=== PATIENT | female | born 1995 | race Caucasian/White ===

== ENCOUNTER 2018-05-05 08:29 | Emergency (ER) | payer OTHER ==
[2018-05-05] MEDS: GI COCKTAIL 50ML BTL(HYOSCYAMINE/MAALOX/LIDOCAINE VISCOUS)(1:3:1) PO (09:15)
[2018-05-05] MEDS: ONDANSETRON 4MG/2ML VIAL (J2405) IV (09:34)
[2018-05-05] MEDS: NS 1,000 ML IV (09:34)
[2018-05-05 09:45] LABS: BASO # 0.1 10^3/uL (0.0-0.2); BASO % 0.4 % (0.0-1.0); EOS # 0.1 10^3/uL (0.0-0.50); EOS % 0.5 % (0.0-3.0); HEMOGLOBIN 16.5 g/dl (12.0-15.5); IMMATURE GRANULOCYTE % 0.4 % (0-3.0); LYMPH # 2.4 10^3/uL (1.5-6.5); LYMPH % 17.5 % (24.0-44.0); MEAN CORPUSCULAR HEMOGLOBIN 31.7 pg (27.0-33.0); MEAN CORPUSCULAR HGB CONC 34.4 g/dl (32.0-36.5); MEAN CORPUSCULAR VOLUME 92.1 fl (80.0-96.0); NEUTROPHILS # 10.2 10^3/uL (1.8-7.7); NEUTROPHILS % 74.2 % (36.0-66.0); PLATELET COUNT, AUTOMATED 262 10^3/uL (150-450); RED BLOOD COUNT 5.21 10^6/uL (4.00-5.40); RED CELL DISTRIBUTION WIDTH 13.7 % (11.5-14.5); WHITE BLOOD COUNT 13.8 10^3/uL (4.0-10.0)
[2018-05-05 09:53] LABS: INR 0.97
[2018-05-05 09:54] LABS: PARTIAL THROMBOPLASTIN TIME 31.1 SECONDS (25.4-37.6)
[2018-05-05 10:36] LABS: ALBUMIN 3.9 GM/DL (3.2-5.2); ALBUMIN/GLOBULIN RATIO 1.18 (1.00-1.93); ALKALINE PHOSPHATASE 56 U/L (45-117); ALT/SGPT 17 U/L (12-78); ANION GAP 10 MEQ/L (8-16); AST/SGOT 10 U/L (7-37); BILIRUBIN,DIRECT 0.1 MG/DL (0.0-0.2); BILIRUBIN,TOTAL 0.4 MG/DL (0.2-1.0); BLOOD UREA NITROGEN 11 MG/DL (7-18); CALCIUM LEVEL 9.4 MG/DL (8.5-10.1); CARBON DIOXIDE LEVEL 21 MEQ/L (21-32); CHLORIDE LEVEL 109 MEQ/L (98-107); CPK CREATINE PHOSPHOKINASE 43 U/L (26-192); CREATININE FOR GFR 0.72 MG/DL (0.55-1.30); FREE T4 1.22 NG/DL (0.76-1.46); GLOMERULAR FILTRATION RATE > 60.0 (>60); GLUCOSE, FASTING 99 MG/DL (70-100); LIPASE 80 U/L (73-393); MB/CK RELATIVE INDEX 2.33 (< OR =4); POTASSIUM SERUM 3.7 MEQ/L (3.5-5.1); SODIUM LEVEL 140 MEQ/L (136-145); TOTAL PROTEIN 7.2 GM/DL (6.4-8.2); TROPONIN I < 0.02 NG/ML (< 0.10)
== END 2018-05-05 10:48 | disposition home or self-care (01) ==
LOC: M ED 08:29
DX: K21.0 Gastro-esophageal reflux disease with esophagitis (principal); J45.909 Unspecified asthma, uncomplicated; G43.909 Migraine, unspecified, not intractable, without status migrainosus; Z79.899 Other long term (current) drug therapy; F17.210 Nicotine dependence, cigarettes, uncomplicated
CPT/HCPCS: J2405

== ENCOUNTER → 2019-10-23 | Outpatient (REF) | payer OTHER ==
[~2019-10-23] MED LIST: AMIT10TA PO; PROT1TAB2 PO; VENTAER INH; ZOFR4TAB14 PO
[2019-10-23 21:08] LABS: INFLUENZA A AMPLIFICATION NEGATIVE (NEGATIVE); INFLUENZA B AMPLIFICATION NEGATIVE (NEGATIVE)
== END ==
LOC: M LAB REF 20:15
PROVIDERS: ATTEND Physician Assistant Medical
DX: J11.1 Influenza due to unidentified influenza virus with other respiratory manifestations (principal)

== ENCOUNTER 2019-11-03 11:14 | Emergency (ER) | payer OTHER ==
[~2019-11-03] VITALS: Ht 167.6 cm; Wt 79.3 kg
[2019-11-03] MEDS ORDERED: IBUP80TA PO (11:24)
[2019-11-03] MEDS ORDERED: ALBUTEROL SULFATE 2.5 MG/0.5 ML INH NEB SOLN NEB ONE (11:45)
--- NOTE | 2019-11-03 12:11 | REP ---
Chest x-ray: Two views. History: Productive cough, shortness of breath, wheezing. Rule out pneumonia. No comparison studies. Findings: There is an infiltrate in the right middle lobe overlying the heart on the lateral film and at the right base on the frontal view consistent with pneumonia. Remaining lung petty are clear. Pleural angles are sharp. Heart size is normal. Pulmonary vasculature is not increased. No significant bony abnormality is seen. Impression: Right middle lobe infiltrate consistent with pneumonia. Electronically Signed by Daniel Singh MD 11/03/2019 12:02 P
[2019-11-03] MEDS ORDERED: ALBUTEROL 90 MCG/ACT 8GM HFA INHALER INH ONE (12:15)
[2019-11-03] MEDS ORDERED: MEDR4PAK PO (12:30)
[2019-11-03] MEDS ORDERED: VENTAER INH (12:30)
[2019-11-03] MEDS ORDERED: AMOX500C PO (12:30)
[2019-11-03 12:35] LABS: INFLUENZA A AMPLIFICATION NEGATIVE (NEGATIVE); INFLUENZA B AMPLIFICATION POSITIVE (NEGATIVE)
[2019-11-03 12:37] VITALS: BP 132/83
== END 2019-11-03 12:51 | disposition home or self-care (01) ==
LOC: M ED 11:14
DX: J10.1 Influenza due to other identified influenza virus with other respiratory manifestations (principal); J18.9 Pneumonia, unspecified organism; Z20.89 Contact with and (suspected) exposure to other communicable diseases; J45.909 Unspecified asthma, uncomplicated; F17.200 Nicotine dependence, unspecified, uncomplicated

== ENCOUNTER 2020-11-13 15:26 | Emergency (ER) | payer OTHER ==
[~2020-11-13] VITALS: Ht 170.2 cm; Wt 74.1 kg
[~2020-11-13 15:26] MED LIST changes: -AMIT10TA PO; +AMIT10TA7 PO; +AMOX500C PO; +IBUP80TA PO; +MEDR4PAK PO
[2020-11-13] MEDS ORDERED: CITA20TA6 PO (15:47)
[2020-11-13] MEDS ORDERED: ACETAMINOPHEN 325 MG TAB PO ONE (16:15)
[2020-11-13] MEDS ORDERED: LIDOCAINE 2% MDV 20ML VIAL SC ONE (17:10)
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
[2020-11-13] MEDS ORDERED: PERI0.126 PO (18:51)
[2020-11-13] MEDS ORDERED: AUGM875T28 PO (18:51)
[2020-11-13 19:14] VITALS: BP 122/91
== END 2020-11-13 19:17 | disposition home or self-care (01) ==
LOC: M ED 15:26
DX: S01.511A Laceration without foreign body of lip, initial encounter (principal); S03.2XXA Dislocation of tooth, initial encounter; R22.31 Localized swelling, mass and lump, right upper limb; K01.1 Impacted teeth; V43.52XA Car driver injured in collision with other type car in traffic accident, initial encounter; Y92.9 Unspecified place or not applicable; Y93.9 Activity, unspecified; Y99.9 Unspecified external cause status; G43.909 Migraine, unspecified, not intractable, without status migrainosus; J45.909 Unspecified asthma, uncomplicated; F17.200 Nicotine dependence, unspecified, uncomplicated

== ENCOUNTER 2020-11-21 14:29 | Emergency (ER) | payer OTHER ==
[~2020-11-21] VITALS: Ht 167.6 cm; Wt 75.8 kg
[~2020-11-21 14:29] MED LIST changes: +AUGM875T28 PO; +CITA20TA6 PO; +PERI0.126 PO
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
[2020-11-21 17:10] VITALS: BP 122/76
== END 2020-11-21 17:13 | disposition home or self-care (01) ==
LOC: M ED 14:29
DX: F07.81 Postconcussional syndrome (principal); G43.909 Migraine, unspecified, not intractable, without status migrainosus; J45.909 Unspecified asthma, uncomplicated; Z79.899 Other long term (current) drug therapy

== ENCOUNTER 2021-01-05 10:27 | Emergency (ER) | payer OTHER ==
[~2021-01-05] VITALS: Ht 167.6 cm; Wt 72.7 kg
[2021-01-05] MEDS ORDERED: NS 1,000 ML IV ONE (11:05)
[2021-01-05 11:28] LABS: HEMATOCRIT 46.8 % (36.0-47.0); HEMOGLOBIN 15.7 g/dl (12.0-15.5); MEAN CORPUSCULAR HEMOGLOBIN 31.8 pg (27.0-33.0); MEAN CORPUSCULAR HGB CONC 33.5 g/dl (32.0-36.5); MEAN CORPUSCULAR VOLUME 94.7 fl (80.0-96.0); PLATELET COUNT, AUTOMATED 322 10^3/uL (150-450); RED BLOOD COUNT 4.94 10^6/uL (4.00-5.40); WHITE BLOOD COUNT 14.4 10^3/uL (4.0-10.0)
[2021-01-05 11:58] LABS: ALBUMIN 3.7 GM/DL (3.2-5.2); ALT/SGPT 19 U/L (12-78); BILIRUBIN,TOTAL 0.6 MG/DL (0.2-1.0); BLOOD UREA NITROGEN 13 MG/DL (7-18); CALCIUM LEVEL 8.3 MG/DL (8.5-10.1); CARBON DIOXIDE LEVEL 27 MEQ/L (21-32); CHLORIDE LEVEL 109 MEQ/L (98-107); CREATININE FOR GFR 0.73 MG/DL (0.55-1.30); GLOMERULAR FILTRATION RATE > 60.0 (>60); GLUCOSE, FASTING 100 MG/DL (70-100); POTASSIUM SERUM 3.8 MEQ/L (3.5-5.1); SODIUM LEVEL 139 MEQ/L (136-145); TOTAL PROTEIN 7.5 GM/DL (6.4-8.2)
[2021-01-05 12:22] LABS: HCG, SERUM QUALITATIVE POSITIVE (NEGATIVE)
[2021-01-05] MEDS ORDERED: EEG (13:00)
[2021-01-05] MEDS ORDERED: ACETAMINOPHEN TAB 650MG DOSE (2X325MG) PO ONE (13:00)
[2021-01-05 13:02] LABS: HCG, SERUM QUANTITATIVE 142 MIU/ML
[2021-01-05 13:44] LABS: AMPHETAMINES LEVEL URINE NEGATIVE (NEGATIVE); BARBITURATES URINE NEGATIVE (NEGATIVE); BENZODIAZEPINES URINE NEGATIVE (NEGATIVE); CANNABINOIDS URINE POSITIVE (NEGATIVE); COCAINE METABOLITE URINE NEGATIVE (NEGATIVE); METHADONE URINE NEGATIVE (NEGATIVE); OPIATES URINE NEGATIVE (NEGATIVE); PHENCYCLIDINE URINE NEGATIVE (NEGATIVE)
[2021-01-05 13:45] VITALS: BP 119/75
[2021-01-05] MEDS ORDERED: ALBU8.5H INH (18:18)
--- NOTE | 2021-01-06 10:14 | IPN ---
PROGRESS NOTE DATE: 01/05/2021 SUBJECTIVE: Patient has recurrent seizure episodes. No shortness of breath or cough, fever, or chills overnight. Tolerating her prednisone well. 98% on room air. PHYSICAL EXAMINATION (OBJECTIVE): Vital Signs: Temperature 98.6, pulse 66, respiratory rate 18, blood pressure 116/60, 98% on room air. General: Awake, alert, oriented to person, place and time. Answers questions appropriately. HEENT: Face is symmetric. Tongue is midline. No jugular venous distension (JVD), thyromegaly or cervical lymphadenopathy. Lungs: Clear to auscultation. No wheezing, rales or rhonchi. Heart: S1, S2; sinus rhythm. Abdomen: Soft, nontender, nondistended. Positive bowel sounds. Gravid uterus. Extremities: No cyanosis, clubbing or pitting edema. LABORATORY DATA: Reviewed. ASSESSMENT AND PLAN: This is a 25-year-old female with tonic-clonic seizure activity at home admitted for seizures and asthma exacerbation on 01/05/2021. IMPRESSION: 1. Seizure. Patient is currently on Keppra 1 gram twice a day. Dr. Lebron, neurologist, has been consulted. CT of the head was negative. Ativan for acute tonic seizure activity as needed. EEG today. May transfer to medical/surgical floor with seizure precautions. No signs of aspiration. 2. Asthma exacerbation. She is status post one dose of Solu-Medrol; currently on prednisone 40 mg to clear lungs and DuoNeb; not requiring any home oxygen. Patient does not have any inhalers at home; would like to have one after hospital discharge. 3. Gravid uterus; positive test, outpatient follow up. DISPOSITION: Medically stable for transfer to medical/surgical floor. Discontinue telemetry. Depending on EEG and further recommendations from neurology, may be discharged home later today or in the morning.
--- NOTE | 2021-01-06 13:19 | ECGEPIP ---
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
[2021-01-06] MEDS ORDERED: PROAAER10 INH (17:28)
[2021-01-06] MEDS ORDERED: PRED10TA2 PO (17:28)
[2021-01-06] MEDS ORDERED: KEPP1TAB PO (17:28)
== END 2021-01-05 14:10 | disposition home or self-care (01) ==
LOC: M ED 10:27
DX: O99.350 Diseases of the nervous system complicating pregnancy, unspecified trimester (principal); O99.519 Diseases of the respiratory system complicating pregnancy, unspecified trimester; O99.330 Smoking (tobacco) complicating pregnancy, unspecified trimester; Z32.01 Encounter for pregnancy test, result positive

== ENCOUNTER 2021-01-05 17:33 | Observation (INO) | payer OTHER ==
[~2021-01-05] VITALS: Ht 167.6 cm; Wt 70.0 kg
[~2021-01-05 17:33] MED LIST changes: +EEG
[2021-01-05] MEDS ORDERED: ALBUTEROL 90 MCG/ACT 8GM HFA INHALER INH ONE (17:45)
[2021-01-05] MEDS ORDERED: ALBU8.5H INH (18:18)
[2021-01-05] MEDS ORDERED: IPRATROPIUM 0.5MG/ALBUTEROL 2.5MG INH SOL UD 3ML (DUONEB) NEB ONE (19:15)
[2021-01-05] MEDS ORDERED: MAALOX 30 ML SUSP *UDC PO PRN (19:45)
[2021-01-05] MEDS ORDERED: ALBUTEROL 90 MCG/ACT 8GM HFA INHALER INH PRN (19:45)
[2021-01-05] MEDS ORDERED: ACETAMINOPHEN TAB 650MG DOSE (2X325MG) PO PRN (19:45)
[2021-01-05] MEDS ORDERED: MOM 30ML SUSPENSION UDC PO PRN (19:45)
[2021-01-05] MEDS ORDERED: LORazepam 2 MG/ML VIAL As Ordered ONE (19:53)
[2021-01-05] MEDS ORDERED: levETIRAcetam INJection 1,000 MG in D5W 100 ML IV ONE (20:00)
[2021-01-05] MEDS ORDERED: LORazepam 2 MG/ML VIAL IM STA (20:04)
[2021-01-05] MEDS ORDERED: LORazepam 2 MG/ML VIAL IV STA (20:09)
[2021-01-05] MEDS ORDERED: methylPREDNISolone 125MG 2ML VIAL IV STA (20:16)
--- NOTE | 2021-01-05 20:16 | IPNPDOC ---
Text Note Date of Service The patient was seen on 01/05/21. 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
[2021-01-05] MEDS ORDERED: ALBUTEROL SULFATE 2.5 MG/0.5 ML INH NEB SOLN NEB PRN (20:20)
[2021-01-05] MEDS ORDERED: MAG SULF 1GM/100ML (MAG RUN) 1 GM in IV 1 EA IV ONE (20:20)
[2021-01-05] MEDS ORDERED: NS 1,000 ML IV ONE (20:40)
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
[2021-01-05] MEDS: DOCUSATE SODIUM 100MG CAPSULE PO SCH (21:00)
[2021-01-05] MEDS ORDERED: levETIRAcetam 250MG TABLET (KEPPRA) PO SCH (21:00)
--- NOTE | 2021-01-05 21:02 | REPVR ---
PROCEDURE INFORMATION: Exam: CT Head Without Contrast Exam date and time: 01/05/2021 8:35 PM Age: 25 years old Clinical indication: Seizure activity TECHNIQUE: Imaging protocol: Computed tomography of the head without contrast. Radiation optimization: All CT scans at this facility use at least one of these dose optimization techniques: automated exposure control; mA and/or kV adjustment per patient size (includes targeted exams where dose is matched to clinical indication); or iterative reconstruction. COMPARISON: CT Head without contrast 11/21/2020 2:53 PM FINDINGS: Brain: No intracranial hemorrhage or extra-axial fluid collection. No evidence of mass effect or midline shift. Griffin-white matter differentiation is intact. Cerebral ventricles: No ventriculomegaly. Bones/joints: No acute osseus lesion or fracture. Paranasal sinuses: Visualized sinuses are unremarkable. No fluid levels. Mastoid air cells: Unremarkable. Soft tissues: Unremarkable. IMPRESSION: No acute intracranial pathology. Electronically signed by: Damian Juárez On 01/05/2021 21:02:33 PM
[2021-01-06 00:30] VITALS: BP 106/58
[2021-01-06] MEDS: IPRATROPIUM 0.5MG/ALBUTEROL 2.5MG INH SOL UD 3ML (DUONEB) NEB SCH ×3 (02:17→14:57)
[2021-01-06 04:00] VITALS: BP 130/61
[2021-01-06 07:54] VITALS: BP 116/60
[2021-01-06] MEDS: DOCUSATE SODIUM 100MG CAPSULE PO SCH (08:46)
[2021-01-06] MEDS ORDERED: predniSONE 20 MG TAB PO SCH (09:00)
[2021-01-06] MEDS ORDERED: levETIRAcetam 250MG TABLET (KEPPRA) PO SCH (09:00)
[2021-01-06 12:00] VITALS: BP 99/56
--- NOTE | 2021-01-06 13:25 | ECGEPIP ---
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
[2021-01-06 16:00] VITALS: BP 107/55
[2021-01-06] MEDS ORDERED: KEPP1TAB PO (17:28)
[2021-01-06] MEDS ORDERED: PROAAER10 INH (17:28)
[2021-01-06] MEDS ORDERED: PRED10TA2 PO (17:28)
--- NOTE | 2021-01-06 19:39 | DSES ---
DISCHARGE SUMMARY DATE OF ADMISSION: 01/05/2021 DATE OF DISCHARGE: 01/06/2021 [place] THIS ADMISSION: Dr. Chaney, neurologist. PRIMARY DISCHARGE DIAGNOSES: 1. Stress-induced convulsive disorder, rule out tonic-clonic seizures. 2. Four week gestation/. 3. Asthma exacerbation. DISCHARGE MEDICATIONS: 1. Albuterol two puffs q. four to six hours as needed for wheezing. 2. Keppra 500 mg b.i.d. 3. Prednisone taper. DISCHARGE INSTRUCTIONS: The patient is to have an outpatient video electroencephalogram to be arranged by her neurologist to confirm seizure activity. HOSPITAL COURSE: This is a 25-year-old female four weeks who presented to the emergency room after having a witnessed tonic-clonic seizure like movement at home witnessed by her boyfriend with prolonged sleepiness, confusion, and grogginess possible postictal brought into the hospital for possible seizure activity. The patient had been having headaches and fell to the floor during tonic-clonic movements and hit her head on the floor with shortness of breath. The patient had been wheezing for the past few days and in the ER was found to also have asthma exacerbation. She was given IV Solu-Medrol, kept on nebulizer treatment with complete resolution of her asthma. She was kept on IV Keppra while she was postictal. EEG was performed, but result is unavailable. Prolactin level was 17.5. Dr. Chaney recommended continued use of Keppra 500 b.i.d. and outpatient video EEG to be arranged. DISCHARGE PHYSICAL EXAMINATION: VITAL SIGNS: Temperature 97.5, pulse 70, respiratory rate 16, blood pressure 107/55, 96% on room air. GENERAL: The patient is awake, alert, and oriented to person, place, and time. Answering questions appropriately. HEENT: Face is symmetric. Tongue is midline. NECK: No JVD, thyromegaly, or cervical lymphadenopathy. LUNGS: Clear to auscultation. Air entry is equal. No wheezing, which has resolved. ABDOMEN: Soft, nontender, and nondistended. Positive bowel sounds. EXTREMITIES: No cyanosis, clubbing, or pitting edema. IMAGING DATA: CT of the head was no acute intracranial pathology. EEG is pending. LABORATORY DATA: Magnesium of 1.8, prolactin of 17.5. Time spent on discharge: 30 minutes.
--- NOTE | 2021-01-07 08:36 | EEG ---
ELECTROENCEPHALOGRAM DATE: 01/06/2021 DIAGNOSIS: Seizures. EEG# [id number]. REFERRING PHYSICIAN: Sumi Bailey MD HISTORY: Patient is a 25-year-old woman who was admitted at [facility] after having passing out and seizure-like spells. This EEG was done to rule out epileptic potential. She is currently taking Keppra, Tylenol, multivitamin, etc. TECHNICAL DESCRIPTION: This digital EEG was recorded by 21-scalp, ear, and two EKG electrodes and was reviewed in bipolar and referential montages following reformatting in 10-20 international electrode placement system. INTERPRETATION: Patient was noted to be in awake and drowsy states during this EEG. Resting and awake background rhythm consisted of 8.5 Hz alpha activity measuring 15-50 microvolts in amplitude, which was symmetric and reactive to eye opening. Attenuation of posterior dominant rhythm was seen during transition into drowsiness. Stage 1 and 2 sleep were reviewed and were symmetric bilaterally. Hyperventilation elicited mild theta slowing of background rhythm. Photic stimulation remained unremarkable. No focal, lateralizing, or epileptiform abnormalities were seen. No relevant clinical activity was noted. CONCLUSION: This EEG in awake, drowsy states, stage 1 and 2 sleep is within normal limits.
--- NOTE | 2021-01-07 18:24 | CR ---
NEUROLOGY CONSULTATION/NEUROLOGY FOLLOW UP NOTE DATE: 01/06/2021 REASON FOR CONSULTATION: Suspect seizure-like activity. HISTORY OF PRESENTING ILLNESS: Milagros Coffman is a 25-year-old right handed female with a past medical history significant for asthma who was recently diagnosed to be 4-6 weeks in the Emergency Department. The patient was brought to the E.R. by her mother and boyfriend with seizure-like spells. Over the last few months the patient started having seizure-like spells multiple times a week, approximately 2-3 events per week, lasting approximately 2-3 minutes with convulsive shaking and stiffening. The patient states that the events are usually preceded by stress. She is under a lot of social stress. She denies any history of physical or sexual abuse through her life. She states that she has had some traumatic experience in her life that she does think about. She does suffer from depression and anxiety. Finding out in the Emergency Department that she was was quite overwhelming as she had not planned on becoming so young. The patient was then discharged home after the first seizure-like spell which occurred at home with stiffening of the arms and legs followed by some confusion. The patient was brought to the hospital, head CT was completed and was negative for any acute intracranial process. She was sent home. She had another event while at home. She had a third event while here in the hospital E.R. again. She was given Ativan and loaded with Keppra given that she was reportedly and having continued seizure-like activity. Her mother did report that the patient would have odd behavior and space out randomly. The patient had an EEG while at [facility] and this EEG was found to be within normal limits. The patient reports that she is able to hear her boyfriend around her when she is going through this episode. Usually these episodes occur when she is alone. She was able to hear her boyfriend, and in quite detail she can describe that he was contacting the ambulance and also checking on her to see if she was okay. 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 Given that we have multiple seizure-like events and the patient being , it would be buckner to have her stay on at least one anti-epileptic drug at this time. The patient would benefit from video EEG monitoring in an outpatient setting, and she is agreeable to consider this moving forward. She herself has never had seizures prior to the last few months. She had normal child development and reached all her milestones appropriately. The patient has smoked since the very young of 16. She also has used alcohol socially. She has been advised to quit alcohol and to quit smoking. She denies any recreational drug use other than marijuana. The patient is fully aware that she is not allowed to drive, operate heavy machinery, climbing ladders, working from heights, etc. for the next 6 months. PAST MEDICAL HISTORY: The patient's past medical history is significant for: 1. Asthma. 2. Current diagnosis of between 4 to 6 weeks. 3. Seizure-like spells. PAST SURGICAL HISTORY: None. FAMILY HISTORY: Noncontributory. SOCIAL HISTORY: The patient currently smokes. She drinks alcohol occasionally. She denies any recreational drug use. REVIEW OF SYSTEMS: A 14-point review of systems was obtained and is negative except as per HPI. PHYSICAL EXAMINATION: VITAL SIGNS: Pain is 0/10. Current height is 5 feet, 6 inches, current weight is 70 kg. Blood pressure 99/56, pulse rate 74, respiratory rate 18, temperature 97.5 degrees Fahrenheit, oxygenation 96% on room air. NEUROLOGICAL: The patient is oriented to person, place and time. Speech, language, comprehension and repetition are intact. The patient seems quite anxious, subdued, answering most questions with one word answer while in front of her mother and boyfriend. Myself and the resident asked the patient's and boyfriend to step out of the room, allowing Milagros to speak freely. She was able to speak more freely. She had normal speech, no dysarthria, no aphasia. Pupils were 3 mm, round and reactive to light. The extraocular movements were intact. There was no nystagmus. There is no facial weakness. Tongue is midline. Hearing is equal to finger rub. There is no loss of sensation to light touch in the face, arms and legs. There was no pronator drift. Finger to nose did not reveal any ataxia, dysmetria or tremors. Romberg testing was negative. Gait was normal. Deep tendon reflexes were 2+ throughout. Strength testing was normal with 5/5 strength in the bilateral deltoids, biceps, triceps. Hand product scientist, ileus psoas, quadriceps, anterior tibialis. Babinski signs were absent. IMPRESSION: 1. A 25-year-old female with new onset of seizure-like spells ongoing for the last few months, usually provoked by stress. Cannot entirely exclude psychogenic non-epileptic spells. Cannot entirely exclude generalized tonoclonic seizure. PLAN: 1. Continue Keppra 500 mg p.o. twice daily. 2. Recommend outpatient neurological follow up for referral for video EEG monitoring. EEG completed on this visit is normal. Head CT during this visit was also normal. History obtained from both the patient, the patient's boyfriend and mother. 3. Our Team will see in the Neurology Clinic in approximately 1-2 months. 4. The patient was advised no driving, operating heavy machinery, climbing ladders, working from heights, etc. for the next 6 months. MTDD
== END 2021-01-06 19:20 | disposition home or self-care (01) ==
LOC: M ED 17:33 → EDBD 17:33 → M ED INP 17:34 → ENRESERV 20:57 → M PCU 01-06 00:26
PROVIDERS: ADMIT Internal Medicine; ATTEND General Practice
DX: O99.341 Other mental disorders complicating pregnancy, first trimester (principal); F43.9 Reaction to severe stress, unspecified; O99.351 Diseases of the nervous system complicating pregnancy, first trimester; G40.409 Other generalized epilepsy and epileptic syndromes, not intractable, without status epilepticus; O99.52 Diseases of the respiratory system complicating childbirth; J45.901 Unspecified asthma with (acute) exacerbation; O99.331 Smoking (tobacco) complicating pregnancy, first trimester; Z3A.01 Less than 8 weeks gestation of pregnancy
CPT/HCPCS: 70450; 83735; 84146; 87798; 93005; 93041; 94640; 95819; 96361; 96365; 96375; 99285; J1953; J2060; J2930; J3475; J7512

== ENCOUNTER 2021-04-05 18:57 | Emergency (ER) | payer OTHER ==
[~2021-04-05] VITALS: Ht 170.2 cm; Wt 72.7 kg
[~2021-04-05 18:57] MED LIST changes: +ALBU8.5H INH; +KEPP1TAB PO; +PRED10TA2 PO; +PROAAER10 INH
[2021-04-05 19:58] LABS: HEMATOCRIT 37.1 % (36.0-47.0); HEMOGLOBIN 12.2 g/dl (12.0-15.5); MEAN CORPUSCULAR HEMOGLOBIN 30.8 pg (27.0-33.0); MEAN CORPUSCULAR HGB CONC 32.9 g/dl (32.0-36.5); MEAN CORPUSCULAR VOLUME 93.7 fl (80.0-96.0); PLATELET COUNT, AUTOMATED 319 10^3/uL (150-450); RED BLOOD COUNT 3.96 10^6/uL (4.00-5.40); WHITE BLOOD COUNT 15.5 10^3/uL (4.0-10.0)
[2021-04-05 20:20] LABS: BLOOD UREA NITROGEN 8 MG/DL (7-18); CALCIUM LEVEL 8.2 MG/DL (8.5-10.1); CARBON DIOXIDE LEVEL 28 MEQ/L (21-32); CHLORIDE LEVEL 107 MEQ/L (98-107); CREATININE FOR GFR 0.39 MG/DL (0.55-1.30); ETHYL ALCOHOL (ETHANOL) < 0.003 % (0.000-0.010); GLOMERULAR FILTRATION RATE > 60.0 (>60); GLUCOSE, FASTING 97 MG/DL (70-100); POTASSIUM SERUM 3.6 MEQ/L (3.5-5.1); SODIUM LEVEL 141 MEQ/L (136-145)
[2021-04-05 20:24] LABS: HCG, SERUM QUALITATIVE NEGATIVE (NEGATIVE)
[2021-04-05] MEDS ORDERED: LIDOCAINE 2% 5ML JELLY UROJET TOP ONE (20:35)
[2021-04-05 22:08] LABS: AMPHETAMINES LEVEL URINE NEGATIVE (NEGATIVE); BARBITURATES URINE NEGATIVE (NEGATIVE); BENZODIAZEPINES URINE NEGATIVE (NEGATIVE); CANNABINOIDS URINE POSITIVE (NEGATIVE); COCAINE METABOLITE URINE NEGATIVE (NEGATIVE); METHADONE URINE NEGATIVE (NEGATIVE); OPIATES URINE NEGATIVE (NEGATIVE); PHENCYCLIDINE URINE NEGATIVE (NEGATIVE)
[2021-04-05] MEDS ORDERED: NS 1,000 ML IV ONE (23:15)
[2021-04-05 23:29] LABS: APPEARANCE, URINE HAZY (CLEAR); BACTERIA, URINE AUTO 1+ (NEGATIVE); BILIRUBIN, URINE AUTO NEGATIVE (NEGATIVE); BLOOD, URINE BLOOD NEGATIVE (NEGATIVE); COLOR, URINE YELLOW (YELLOW); GLUCOSE, URINE (UA) AUTO NEGATIVE (NEGATIVE); KETONE, URINE AUTO NEGATIVE (NEGATIVE); LEUKOCYTE ESTERASE, URINE AUTO NEGATIVE (NEGATIVE); MUCUS, URINE SMALL (NEGATIVE); NITRITE, URINE AUTO NEGATIVE (NEGATIVE); PROTEIN, URINE AUTO NEGATIVE (NEGATIVE); RBC, URINE AUTO 1 /HPF (0-3); SPECIFIC GRAVITY URINE AUTO 1.006 (1.002-1.035); SQUAMOUS EPITHELIAL CELL UR AU 9 /HPF (0-6); UROBILINOGEN, URINE AUTO 0.2 mg/dL (0.0-2.0); WBC, URINE AUTO 2 /HPF (0-3)
[2021-04-05 23:35] LABS: ALBUMIN 2.6 GM/DL (3.2-5.2); ALT/SGPT 28 U/L (12-78); BILIRUBIN,DIRECT 0.1 MG/DL (0.0-0.2); BILIRUBIN,TOTAL 0.3 MG/DL (0.2-1.0); TOTAL PROTEIN 6.8 GM/DL (6.4-8.2)
[2021-04-06 01:04] LABS: RSV AMPLIFICATION NEGATIVE (NEGATIVE)
[2021-04-06 01:45] VITALS: BP 141/87
--- NOTE | 2021-04-06 08:43 | ECGEPIP ---
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
== END 2021-04-06 02:01 | disposition short-term general hospital (02) ==
LOC: M ED 18:57
DX: G40.909 Epilepsy, unspecified, not intractable, without status epilepticus (principal); G43.909 Migraine, unspecified, not intractable, without status migrainosus; F32.9 Major depressive disorder, single episode, unspecified; F17.200 Nicotine dependence, unspecified, uncomplicated

== ENCOUNTER 2021-06-25 10:47 | Emergency (ER) | payer OTHER ==
[~2021-06-25] VITALS: Ht 167.6 cm; Wt 63.6 kg
[2021-06-25] MEDS ORDERED: VENL75CA47 (10:53)
[2021-06-25] MEDS ORDERED: LEVE500T5 (10:53)
--- OUTSIDE RECORDS SUMMARY | 2021-06-25 10:55 | CCD | Continuity of Care Document ---
Author Author Milagros PAYNE MD Organization Unknown Address [address] [place] [address] Phone [phone] Care Team Providers Care Gang Plank Workman Name Role Phone Berenice Payne MD AUTM [phone] [facility] Behavioral Health AUTM [phone] [facility] AUTM [phone] [facility] AUTM [phone] Problems Active Problems Provider Date Tobacco user ANGEL Martin Onset: 7 Asthma Berenice Payne MD Onset: 04/19/2018 Migraine without aura, not refractory Berenice Payne MD Onset: 04/19/2018 Anxiety state Berenice Payne MD Onset: 07/04/2019 Depressive disorder Berenice Payne MD Onset: 11/01/2020 Social History Type Date Description Comments Sex Unknown Tobacco Use Start: Unknown Light tobacco smoker (10 or fewe r cigarettes/day) Tobacco Use Start: Unknown Never Smoked Cigars Tobacco Use Start: Unknown Never Smoked A Pipe Tobacco Use Start: Unknown Never Used Smokeless Tobacco ETOH Use Denies alcohol use Tobacco Use Start: Unknown Light tobacco smoker (10 or fewe r cigarettes/day) 4- 5/day, wants to quit Recreational Drug Use Former Drug User Marijuana Exercise Type/Frequency Walks daily Tattoo/Piercing Pierced ears Tattoo/Piercing Pierced nasal area Tattoo/Piercing Pierced nipples Tattoo/Piercing Pierced tongue Seat Belt/Car Seat Always uses seat belt KATERINA: 03/09/2017 Estimated Date of Delivery Based on Final KATERINA Allergies, Adverse Reactions, Alerts Active Allergies Criticality Reaction | Severity Comments Date NKDA Unable to assess criticality 07/20/2016 NKFA Unable to assess criticality 07/20/2016 NKEA Unable to assess criticality 07/20/2016 Medications Active Medications SIG Qnty Indications Ordering Provide r Date Venlafaxine HCL ER 75mg Caps ER 24 HR 1 by mouth every day 30caps Daniel Bell MD 05/06/2021 Albuterol Sulfate HFA 108(90Base) mcg/Act Aerosol inhale 2 puff by mouth every 4 hours as needed 17gm Berenice Payne MD 11/20/2020 Levetiracetam 500mg Tablets 1 by mouth twice daily Unknown History Medications Neomycin/Polymyxin/Dexamethasone 0.1% Suspension 3-4 drops to left eye 4 times a day while awake 5ml Berenice Payne MD 04/03/2021 - 05/20/2021 Venlafaxine HCL 37.5mg Tablets 1 by mouth every day 30tabs Berenice Payne MD 04/02/2021 - 05/06/2021 Neomycin/Polymyxin/Hydrocortisone (Ophth almic) 3.5-27030-0 Suspension 3-4 drops to left eye 4 times a day while awake 7.500ml Berenice Payne MD 04/02/2021 - 04/03 Immunizations CPT Code Status Date Vaccine Lot # [id number] Given 01/12/2017 Tdap (Boostrix/Ad[place]) [place] [id number] Given 2016 Influenza (>35 months) P.F. Vaccine [id number] Vital Signs Date Vital Result Comment 05/20/2021 1:03pm BP Systolic 108 mmHg BP Diastolic 70 mmHg Heart Rate 112 /min Body Temperature 99.1 F Respiratory Rate 16 /min O2 % BldC Oximetry 98 % Weight 153.38 lb Weight 69.571 kg Height 67 inches 5'7" BMI (Body Mass Index) 24.0 kg/m2 BSA (Body Surface Area) 1.81 m2 04/02/2021 12:56pm BP Systolic 118 mmHg BP Diastolic 80 mmHg Heart Rate 106 /min Body Temperature 98.2 F Respiratory Rate 16 /min O2 % BldC Oximetry 97 % Weight 158.50 lb Weight 71.896 kg Height 67 inches 5'7" BMI (Body Mass Index) 24.8 kg/m2 BSA (Body Surface Area) 1.83 m2 Results Test Acquired Date Facility Test Result H/L Range Note CBC No Diff 04/02/2021 [facility] CBC No Diff (SEE NOTE) 1, 2 WBC 17.7 10^3/uL High 4.2 - 11.0 RBC 4.42 10^6/uL 4.20 - 5.40 Hemoglobin 13.8 g/dL 12.0 - 16.0 Hematocrit 41.3 % 37.0 - 47.0 MCV 93.4 fL 81.0 - 101 MCH 31.2 pg 27.0 - 34.0 MCHC 33.4 g/dL 31.0 - 36.0 RDW 13.4 % 11.5 - 14.5 Platelets 366 10^3/uL 150 - 450 MPV 10.6 fL High 7.4 - 10.4 Comprehensive Metabolic Panel 04/02/2021 [facility] Comprehensive Metabo (SEE NOTE) 3 Sodium 136 mEq/L 134 - 153 Potassium 3.4 mEq/L Low 3.6 - 5.0 Chloride 101 mEq/L 98 - 107 Co2 24 mEq/L 22 - 30 Glucose 129 mg/dL High 70 - 99 BUN 9 mg/dL 7 - 21 Creatinine 0.4 mg/dL Low 0.7 - 1.5 BUN/Creat 23 8 - 27 Total Protein 6.8 g/dL 6.3 - 8.2 Albumin 3.4 g/dL Low 3.9 - 5.0 Globulin 3.4 GM/DL High 2.4 - 3.2 A/G Ratio 1.0 0.8 - 2.0 Calcium 8.3 mg/dL Low 8.4 - 10.2 Total Bili <0.7 mg/dL 0.2 - 1.3 Alkaline Phos 72 U/L 38 - 126 Sgot/Ast 18 U/L 5 - 40 SGPT/Alt 9 U/L 7 - 56 Anion Gap 11.0 mmol/L 8.0 - 16.0 Age 25 yrs Non-Aa GFR >60 mL/min Afr Amer GFR >60 mL/min 4 Laboratory test finding 04/02/2021 [facility] TSH Highly Sensitive 0.88 uIU/mL 0.47 - 5.01 Vitamin B12 Serum 446 pg/mL 232 - 1245 Medwatch Toxassure Select 13 02/14/2021 [facility] in[facility]ark Summary Report (Summary) FINAL 5, 6 PDF . Drug Eval Toxicology ED Only 01/05/2021 [facility] Amphetamines Level Urine NEGATIVE Normal Negative Barbiturates Urine NEGATIVE Normal Negative Benzodiazepines Urine NEGATIVE Normal Negative Cannabinoids Urine POSITIVE High Negative Cocaine Metabolite Urine NEGATIVE Normal Negative Methadone Urine NEGATIVE Normal Negative Opiates Urine NEGATIVE Normal Negative Phencyclidine Urine NEGATIVE Normal Negative 7 Complete Blood Count 01/05/2021 [facility] White Blood Count 14.4 10 High 4.0-10.0 Red Blood Count 4.94 10 Normal 4.00-5.40 Hemoglobin 15.7 g/dL High 12.0-15.5 Hematocrit 46.8 % Normal 36.0-47.0 Mean Corpuscular Volume 94.7 fl Normal 80.0-96.0 Mean Corpuscular Hemoglobin 31.8 pg Normal 27.0-33.0 Mean Corpuscular HGB Conc 33.5 g/dL Normal 32.0-36.5 Red Cell Distribution Width 14.2 % Normal 11.5-14.5 Platelet Count, Automated 322 10 Normal 150-450 Nucleated Red Blood Cell % 0.0 % Normal 0-0 Comprehensive Metabolic Profil 01/05/2021 [facility] Glucose, Fasting 100 mg/dL Normal 70-100 Blood Urea Nitrogen 13 mg/dL Normal 7-18 Creatinine For GFR 0.73 mg/dL Normal 0.55-1.30 Glomerular Filtration Rate > 60.0 Normal >60 8 Sodium Level 139 mEq/L Normal 136-145 Potassium Serum 3.8 mEq/L Normal 3.5-5.1 Chloride Level 109 mEq/L High 98-107 Carbon Dioxide Level 27 mEq/L Normal 21-32 Anion Gap 3 mEq/L Low 8-16 Calcium Level 8.3 mg/dL Low 8.5-10.1 Ast/Sgot 12 U/L Normal 7-37 Alt/SGPT 19 U/L Normal 12-78 Alkaline Phosphatase 54 U/L Normal 45-117 Bilirubin,Total 0.6 mg/dL Normal 0.2-1.0 Total Protein 7.5 GM/DL Normal 6.4-8.2 Albumin 3.7 GM/DL Normal 3.2-5.2 Albumin/Globulin Ratio 1.0 Low 1.2-2.2 Laboratory test finding 01/05/2021 [facility] HCG Serum Qualitative POSITIVE Abnormal Negative HCG, Serum Quantitative 142 MIU/ML Normal 9 CBC No Diff 12/26/2020 [facility] CBC No Diff (SEE NOTE) 10, 11 WBC 11.7 10^3/uL High 4.2 - 11.0 RBC 4.65 10^6/uL 4.20 - 5.40 Hemoglobin 15.0 g/dL 12.0 - 16.0 Hematocrit 44.2 % 37.0 - 47.0 MCV 95.1 fL 81.0 - 101 MCH 32.3 pg 27.0 - 34.0 MCHC 33.9 g/dL 31.0 - 36.0 RDW 14.7 % High 11.5 - 14.5 Platelets 269 10^3/uL 150 - 450 MPV 10.3 fL 7.4 - 10.4 Comprehensive Metabolic Panel 12/26/2020 [facility] Comprehensive Metabo (SEE NOTE) 12 Sodium 138 mEq/L 134 - 153 Potassium 4.3 mEq/L 3.6 - 5.0 Chloride 103 mEq/L 98 - 107 Co2 28 mEq/L 22 - 30 Glucose 88 mg/dL 70 - 99 BUN 6 mg/dL Low 7 - 21 Creatinine 0.6 mg/dL Low 0.7 - 1.5 BUN/Creat 10 8 - 27 Total Protein 6.7 g/dL 6.3 - 8.2 Albumin 4.1 g/dL 3.9 - 5.0 Globulin 2.6 GM/DL 2.4 - 3.2 A/G Ratio 1.6 0.8 - 2.0 Calcium 9.1 mg/dL 8.4 - 10.2 Total Bili <0.7 mg/dL 0.2 - 1.3 Alkaline Phos 51 U/L 38 - 126 Sgot/Ast 25 U/L 5 - 40 SGPT/Alt 19 U/L 7 - 56 Anion Gap 7.0 mmol/L Low 8.0 - 16.0 Age 25 yrs Non-Aa GFR >60 mL/min Afr Amer GFR >60 mL/min 13 Laboratory test finding 12/26/2020 [facility] TSH Highly Sensitive 1.56 uIU/mL 0.47 - 5.01 Sujatha Ifa Negative 14 Ra Quant <10 IU/mL 0 - 14 Sedimentation Rate 12/26/2020 [facility] Sed Rate 1 mm/hr 0 - 20 Sed Rate Reenter 1 [facility] U/L High 30 - 170 Vitamin B12 Serum 329 pg/mL 232 - 1245 Folic Acid Serum(Folate) 7.7 NG/ML 5.0 - 27.2 Vitamin D (25-Hydroxy) 21 NG/ML 15 Magnesium Serum 1.8 mg/dL 1.7 - 2.2 1 Is patient fasting? N 2 COMPLETE BLOOD COUNT 3 COMPREHENSIVE METABOLIC PANE L 4 Male GFR Interprentation 20-49 yrs >60 mL/min Normal 50-59 yrs >56 mL/min Normal 60-69 yrs >49 mL/min Normal 70-79yrs >42 mL/min Normal 80 and above >35 mL/min Normal Female GFR Interpretation 20-39 yrs >60 mL/min Normal 40-49 yrs >58 mL/min Normal 50-59 yrs >51 mL/min Normal 60-69 yrs >45 mL/min Normal 70-79 yrs >39 mL/min Normal 80 and above >32 mL/min Normal 5 {DIAGNOSIS: F41.9 F32.89~{M EDICATIONS/DECLARED: EVELINRA~{PRESCRIPTION INFO:~{PRESCRIPTION INFO: 6 TOXASSURE SELECT 13 (MW) Test Result Flag Units Drug Present not Declared for Prescription Verification Carboxy-THC 34 UNEXPECTED ng/mg creat Carboxy-THC is a metabolite of tetrahydrocannabinol (THC). Source of THC is most commonly herbal marijuana or marijuana-based products, but THC is also present in a scheduled prescription medication. Trace amounts of THC can be present in hemp and cannabidiol (CBD) products. This test is not intended to distinguish between cmyvy-2-rzjecagsttmezouhdgil, the predominant form of THC in most herbal or marijuana-based products, and czwny-0-tcxlfgntddagvoisyacs. Test Result Flag Units Ref Range Creatinine 29 mg/dL >=20 Declared Medications: The flagging and interpretation on this report are based on the following declared medications. Unexpected results may arise from inaccuracies in the declared medications. Note: The testing scope of this panel does not include following reported medications: Levetiracetam (Keppra) For clinical consultation, please call . 7 ALL PRESUMPTIVE POSITIVE FINDINGS ARE UNCONFIRMED THRESHOLD IN NG/ML AMPHETAMINES/METHAMPHET 1000 BARBITURATES 200 BENZODIAZEPINES 200 CANNABINOIDS (THC) 50 COCAINE METABOLITE 300 METHADONE 300 OPIATES 300 PHENCYCLIDINE 25 RESULTS ARE FOR MEDICAL PURPOSES ONLY. ALL URINE SPECIMENS WILL BE SAVED FOR 3 DAYS. IF CONFIRMATION OF A PRESUMPTIVE POSITIVE SCREEN RESULT IS DESIRED, CALL CHEMISTRY ([phone]) AND REQUEST URINE TO BE SENT TO REFERENCE LAB. FOR A LIST OF CLOSELY RELATED COMPOUNDS PLEASE CALL THE LAB. 8 Units are mL/min/1.73 m2 Chronic Kidney Disease Staging per NKF: Stage I & II GFR >=60 Normal to Mildly Decreased Stage III GFR 30-59 Moderately Decreased Stage IV GFR 15-29 Severely Decreased Stage V GFR <15 Very Little GFR Left ESRD GFR <15 on [employer] 9 GESTATIONAL AGE APPROXIMATE HCG RANGE (MIU/ML) - 0.2-1 WEEK 5-50 1-2 WEEKS 50-500 2-3 WEEKS 100-5,000 3-4 WEEKS 500-10,000 4-5 WEEKS 1,000-50,000 5-6 WEEKS 10,000-100,000 6-8 WEEKS 15,000-200,000 2-3 MONTHS 10,000-100,00 0 NON FEMALES LESS THAN 3.0 Patient samples may contain human heterophilic antibodies that could react with immunoassays to give falsely elevated or depressed results. This assay has been designed to minimize interference from heterophilic antibodies. Elevated hCG levels have also been associated with trophoblastic disease and nontrophoblastic neoplasms. The possibility of having these diseases should be considered before a diagnosis of is made. This test is not intended for use as a surrogate marker for aiding in the diagnosis or monitoring the treatment of cancer patients. [email or web address] methodology. 10 Is patient fasting? N 11 COMPLETE BLOOD COUNT 12 COMPREHENSIVE METABOLIC PANE L 13 Male GFR Interprentation 20-49 yrs >60 mL/min Normal 50-59 yrs >56 mL/min Normal 60-69 yrs >49 mL/min Normal 70-79yrs >42 mL/min Normal 80 and above >35 mL/min Normal Female GFR Interpretation 20-39 yrs >60 mL/min Normal 40-49 yrs >58 mL/min Normal 50-59 yrs >51 mL/min Normal 60-69 yrs >45 mL/min Normal 70-79 yrs >39 mL/min Normal 80 and above >32 mL/min Normal 14 Negative <1:80 Borderline 1:80 Positive >1:80 15 VITAMIN-D(25HYDROXY) Deficiency: <=20 ng/ml Insufficiency: 21-29 ng/ml Preferred level: => 30 ng/ml Procedures Date Code Description Status 05/20/2021 82272 Office/Outpatient Established Lo w MDM 20-29 Min Completed 05/06/2021 09612 Psychiatric Diag Eval W/Medical Service Completed 04/02/2021 42700 Office/Outpatient Established Lo w MDM 20-29 Min Completed 02/14/2021 13546 Preventive Counseling Indiv 45 M in Completed 01/13/2021 96961 Psychiatric Diagnostic Evaluatio n Completed 11/19/2020 01225 Office/Outpatient Established Lo w MDM 20-29 Min Completed Medical Devices Description No Information Available Encounters Type Date Location Provider Dx Diagnosis Office Visit 05/20/2021 1:00p Family Practice Berenice Payne MD F32.89 Other specified depressive episodes F41.9 Anxiety disorder, unspecifie d G40.89 Other seizures Assessments Date Code Description Provider 05/20/2021 F32.89 Other specified depressive episo serjio Berenice Payne MD 05/20/2021 F41.9 Anxiety disorder, unspecified An charu Payne MD 05/20/2021 G40.89 Other seizures Berenice ortega MD 05/06/2021 F32.89 Other specified depressive episo serjio ANGEL Rivera-C 05/06/2021 F41.9 Anxiety disorder, unspecified Ca ANGEL Guo-C 05/06/2021 F12.90 Cannabis use, unspecified, uncom plicated ANGEL Rivera-C 04/30/2021 F32.89 Other specified depressive episo serjio Davin Lukasz, [facility] 04/30/2021 F41.9 Anxiety disorder, unspecified Mi eliu Lal, [facility] 04/30/2021 Z63.79 Other stressful life events affe cting family and household Davin Lukasz, [facility] 04/08/2021 F32.89 Other specified depressive episo serjio Davin Lukasz, [facility] 04/08/2021 F41.9 Anxiety disorder, unspecified Mi eliu Lal, [facility] 04/08/2021 Z63.79 Other stressful life events affe cting family and household Davin Lal, [facility] 04/02/2021 F32.89 Other specified depressive episo serjio Berenice Payne MD 04/02/2021 R63.4 Abnormal weight loss Berenice wilder MD 04/02/2021 H10.9 Unspecified conjunctivitis Berenice Payne MD 03/24/2021 F32.89 Other specified depressive episo serjio Davin Lal, [facility] 03/24/2021 F41.9 Anxiety disorder, unspecified Sri Lal, [facility] 03/24/2021 Z63.79 Other stressful life events affe cting family and household Davin Lal, [facility] 03/14/2021 F32.89 Other specified depressive episo serjio Davin Lal, [facility] 03/14/2021 F41.9 Anxiety disorder, unspecified Sri Lal, [facility] 03/14/2021 Z63.79 Other stressful life events affe cting family and household Davin Lal, [facility] 02/20/2021 F32.89 Other specified depressive episo serjio Davin Lal, [facility] 02/20/2021 F41.9 Anxiety disorder, unspecified Sri Lal, [facility] 02/20/2021 Z63.79 Other stressful life events affe cting family and household Davin Lal, [facility] 02/14/2021 F32.89 Other specified depressive episo serjio Gia Veras, RN 02/14/2021 F41.9 Anxiety disorder, unspecified Romi Veras RN 02/13/2021 F41.9 Anxiety disorder, unspecified Sri Lal, [facility] 02/13/2021 F32.89 Other specified depressive episo serjio Davin Lal, [facility] 01/13/2021 F41.9 Anxiety disorder, unspecified Sri Lal, [facility] 01/13/2021 F32.89 Other specified depressive episo serjio Davin Lal, [facility] 12/26/2020 M79.10 Myalgia, unspecified site Berenice trejo MD 12/26/2020 F41.9 Anxiety disorder, unspecified An charu Payne MD 12/26/2020 F32.89 Other specified depressive episo serjio Berenice Payne MD 11/19/2020 F32.89 Other specified depressive episo serjio Beernice Payne MD 11/19/2020 F41.9 Anxiety disorder, unspecified An charu Payne MD Plan of Treatment Future Appointment(s):* 09/19/2021 1:00 pm - Berenice Payne MD at [facility] * 06/06/2021 2:00 pm - MI Mckeon at [facility] * 06/16/2021 2:00 pm - Neal Lamb PA-C at [facility] 05/20/2021 - Berenice Payne MD* F32.89 Other specified depressive episodes* Recommendations:* She is following up with and is on venlafaxine. * F41.9 Anxiety disorder, unspecified* Recommendations:* As above. * G40.89 Other seizures* Recommendations:* She is following up with Dr. Chaney, neurologist. She states since being back on Levetiracetam, she has not had any further seizures. * All * Follow up:* 4 months * Recommendations:* Encouraged her to quit smoking. Functional Status Description No Information Available Mental Status Description No Information Available Referrals Refer to Reason for Referral Status Appt Date [facility] Recurrent syncope. ? seizure Sent [address] [place] [address] [phone] [facility] 25 year old female with r ecent tonic-clonic seizure and admission to [facility]. Patient is 4 weeks . Please evaluate and treat. Thank you. Closed 01/13/2021 [address] [place] [address] [phone]
--- OUTSIDE RECORDS SUMMARY | 2021-06-25 10:55 | CCD | Continuity of Care Document ---
Author Author Milagros LAMB PA-C Organization Unknown Address [facility] [address] [place] [address] Phone [phone] Care Team Providers Care Director Financial Planning Name Role Phone Berenice Payne MD AUTM [phone] [facility] AUTM [phone] [facility] AUTM [phone] Problems Active Problems Provider Date Tobacco user [...] every day 30caps Daniel Bell MD 05/06/2021 Neomycin/Polymyxin/Dexamethasone 0.1% Suspension 3-4 drops to left eye 4 times a day while awake 5ml Berenice Payne MD 04/03/2021 Albuterol Sulfate HFA 108(90Base) mcg/Act Aerosol inhale 2 puff by mouth every 4 hours as needed 17gm Berenice Payne MD 11/20/2020 [facility] Carpal Tunnel Syndrome Bra ce/Left/Regular Misc wear daily for carpal tunnel 1units Luis Borges MD 05/17/2020 [facility] Carpal Tunnel Syndrome Bra ce/Right/Regular Misc wear daily for carpal tunnel 1units Luis Borges MD 05/17/2020 Levetiracetam 500mg Tablets Unknown History Medications Venlafaxine HCL 37.5mg Tablets 1 by mouth every day 30tabs Berenice Payne MD 04/02/2021 - 05/06/2021 Neomycin/Polymyxin/Hydrocortisone (Ophth almic) 3.5-26107-2 Suspension 3-4 drops to left eye 4 times a day while awake 7.500ml Berenice Payne MD 04/02/2021 - 04/03 Immunizations CPT Code Status Date Vaccine Lot # [id number] Given 01/12/2017 Tdap (Boostrix/[place] [id number] Given 2016 Influenza (>35 months) P.F. Vaccine [id number] Vital Signs Date Vital Result Comment 04/02/2021 12:56pm BP Systolic 118 mmHg BP Diastolic 80 mmHg Heart Rate 106 /min Body Temperature 98.2 F Respiratory Rate 16 /min O2 % BldC Oximetry 97 % Weight 158.50 lb Weight 71.896 kg Height 67 inches 5'7" BMI (Body Mass Index) 24.8 kg/m2 BSA (Body Surface Area) 1.83 m2 02/14/2021 9:02am BP Systolic Sitting 121 mmHg BP Diastolic Sitting 75 mmHg Heart Rate 95 /min Body Temperature 98.4 F Oral Respiratory Rate 20 /min O2 % BldC Oximetry 96 % Weight 160.00 lb Weight 72.576 kg Height 67 inches 5'7" BMI (Body Mass Index) 25.1 kg/m2 BSA (Body Surface Area) 1.84 m2 Results Test Acquired Date Facility Test Result H/L Range Note CBC No Diff 04/02/2021 [facility] CBC No Diff (SEE NOTE) 1, 2 [...] 7.4 - 10.4 Comprehensive Metabolic Panel 04/02/2021 [facility] ospital Comprehensive Metabo (SEE NOTE) 3 [...] >60 mL/min 4 Laboratory test finding 04/02/2021 [facility] Geeta gregorio TSH Highly Sensitive 0.88 uIU/mL 0.47 - 5.01 Vitamin B12 Serum 446 pg/mL 232 - 1245 Medwatch Toxassure Select 13 02/14/2021 Salome swartz Summary Report (Summary) FINAL 5, 6 PDF . Drug Eval Toxicology ED Only 01/05/2021 [facility] Amphetamines Level Urine NEGATIVE Normal Negative Barbiturates Urine NEGATIVE Normal Negative Benzodiazepines Urine NEGATIVE Normal Negative Cannabinoids Urine POSITIVE High Negative Cocaine Metabolite Urine NEGATIVE Normal Negative Methadone Urine NEGATIVE Normal Negative Opiates Urine NEGATIVE Normal Negative Phencyclidine Urine NEGATIVE Normal Negative 7 Complete Blood Count 01/05/2021 [facility] White Blood Count 14.4 10 High 4.0-10.0 [...] % Normal 0-0 Comprehensive Metabolic Profil 01/05/2021 [facility] Glucose, Fasting 100 mg/dL Normal 70-100 Blood [...] 1.0 Low 1.2-2.2 Laboratory test finding 01/05/2021 [facility] HCG Serum Qualitative POSITIVE Abnormal Negative HCG, Serum Quantitative 142 MIU/ML Normal 9 CBC No Diff 12/26/2020 [facility] CBC No Diff (SEE NOTE) 10, 11 [...] 7.4 - 10.4 Comprehensive Metabolic Panel 12/26/2020 [facility]spital Comprehensive Metabo (SEE NOTE) 12 [...] >60 mL/min 13 Laboratory test finding 12/26/2020 [facility] TSH Highly Sensitive 1.56 uIU/mL 0.47 - 5.01 Sujatha Ifa Negative 14 Ra Quant <10 IU/mL 0 - 14 Sedimentation Rate 12/26/2020 [facility] Sed Rate 1 mm/hr 0 - 20 Sed Rate Reenter 1 Laboratory test finding 12/26/2020 [facility] CPK 221 U/L High 30 - 170 Vitamin B12 Serum 329 pg/mL 232 - 1245 Folic Acid Serum(Folate) 7.7 NG/ML 5.0 - 27.2 Vitamin D (25-Hydroxy) 21 NG/ML 15 Magnesium Serum 1.8 mg/dL 1.7 - 2.2 Laboratory test finding 11/13/2020 [facility] < 5.0 Normal 16 1 Is patient fasting? N 2 COMPLETE [...] mL/min Normal 5 {DIAGNOSIS: F41.9 F32.89~{M EDICATIONS/DECLARED: VALARIE~{PRESCRIPTION INFO:~{PRESCRIPTION INFO: 6 TOXASSURE SELECT 13 (MW) [...] test is not intended to distinguish between evjfi-7-yblalttxghdqglldycnq, the predominant form of THC in most herbal or marijuana-based products, and wywlh-7-jxygssgpyhoifjkldfrd. Test Result Flag Units Ref Range Creatinine [...] Little GFR Left ESRD GFR <15 on ARCHITECTURE INSTRUCTOR 9 GESTATIONAL AGE APPROXIMATE HCG RANGE (MIU/ML) [...] monitoring the treatment of cancer patients. Siem[employer] methodology. 10 Is patient fasting? N 11 [...] 21-29 ng/ml Preferred level: => 30 ng/ml 16 QUANTITATIVE RESULT QUALITATIVE INTERPRETATION <5.0 IU/L NEGATIVE 5.0 - 25.0 IU/L INDETER MINATE >25.0 IU/L POSITIVE Procedures Date Code Description Status 05/06/2021 15113 Psychiatric Diag Eval W/Medical Service Completed 04/02/2021 58717 Office/Outpatient Established Lo w MDM 20-29 Min Completed 02/14/2021 96735 Preventive Counseling Indiv 45 M in Completed 01/13/2021 93073 Psychiatric Diagnostic Evaluatio n Completed 11/19/2020 60803 Office/Outpatient Established Lo w MDM 20-29 Min Completed Medical Devices Description No Information Available Encounters Description No Information Available Assessments Date Code Description Provider 05/06/2021 F32.89 Other specified depressive episo serjio Neal Lamb PA-C 05/06/2021 F41.9 Anxiety disorder, unspecified Ca ashley Lamb PA-C 05/06/2021 F12.90 Cannabis use, unspecified, uncom plicated Neal Lamb PA-C 04/30/2021 F32.89 Other specified depressive episo serjio Davin Lal, [facility] 04/30/2021 F41.9 Anxiety disorder, unspecified Sri Lal, [facility] 04/30/2021 Z63.79 Other stressful life events affe cting family and household Davin Lukasz, [facility] 04/08/2021 F32.89 Other specified depressive episo serjio Davin Lal, [facility] 04/08/2021 F41.9 Anxiety disorder, unspecified Sri Lal, [facility] 04/08/2021 Z63.79 Other stressful life events affe cting family and household Davin Lukasz, [facility] 04/02/2021 F32.89 Other specified depressive episo serjio Berenice Payne MD 04/02/2021 R63.4 Abnormal weight loss Berenice wilder MD 04/02/2021 H10.9 Unspecified conjunctivitis Berenice Payne MD 03/24/2021 F32.89 Other specified depressive episo serjio Davin Lal, [facility] 03/24/2021 F41.9 Anxiety disorder, unspecified Mi eliu Lal, [facility] 03/24/2021 Z63.79 Other stressful life events affe cting family and household Davin Lal, [facility] 03/14/2021 F32.89 Other specified depressive episo serjio Davin Lal, [facility] 03/14/2021 F41.9 Anxiety disorder, unspecified Sri Lal, [facility] 03/14/2021 Z63.79 Other stressful life events affe cting family and household Davin Lal, [facility] 02/20/2021 F32.89 Other specified depressive episo serjio Davin Lal, [facility] 02/20/2021 F41.9 Anxiety disorder, unspecified Mi eliu Lal, [facility] 02/20/2021 Z63.79 Other stressful life events affe cting family and household Davin Lal, [facility] 02/14/2021 F32.89 Other specified depressive episo serjio Gia Veras, [facility] 02/14/2021 F41.9 Anxiety disorder, unspecified An samaria Veras, LAZ 02/13/2021 F41.9 Anxiety disorder, unspecified Sri Lal, [facility] 02/13/2021 F32.89 Other specified depressive episo serjio Davin Lal, [facility] 01/13/2021 F41.9 Anxiety disorder, unspecified Mi eliu Lal, [facility] 01/13/2021 F32.89 Other specified depressive episo serjio Davin Lal, [facility] 12/26/2020 M79.10 Myalgia, unspecified site Berenice trejo MD 12/26/2020 F41.9 Anxiety disorder, unspecified An charu Payne MD 12/26/2020 F32.89 Other specified depressive episo serjio Berenice Payne MD 11/19/2020 F32.89 Other specified depressive episo serjio Berenice Payne MD 11/19/2020 F41.9 Anxiety disorder, unspecified An charu Payne MD Plan of Treatment Future Appointment(s):* 06/16/2021 2:00 pm - Neal Lamb PA-C at [facility] * 05/20/2021 3:00 pm - Davin Lal [facility] at [facility] * 05/20/2021 1:00 pm - Berenice Payne MD at [facility] 04/02/2021 - Berenice Payne MD* F32.89 Other specified depressive episodes* Recommendations:* She was on antidepressants before but went off of medication, now with worsening depression. She was stared on venlafaxine 37.5 mg once a day. Explained to her that it might take 4-6 weeks for the medication to have full effect. She was advised not to drive as she has history of syncopal episodes questionable seizure. She was evaluated by Neurology. EEG was normal according to patient. She was tapered of seizure meds. She does have an appointment with . Encouraged her to keep up the appointment and continue with therapy. * R63.4 Abnormal weight loss* Recommendations:* She had 17-pound unintentional weight loss. We will check CBC, CMP, TSH and B12. Could be related to her depression. * H10.9 Unspecified conjunctivitis* Recommendations:* She was given neomycin/polymyxin/hydrocortisone eye ointment to help with allergic symptoms of left eye. Encouraged her to clean the eye and scrub the lids with clean moist warm washcloth BID. * All * New Medication:* Venlafaxine HCL 37.5 mg - 1 by mouth every day * Neomycin/Polymyxin/Hydrocortisone (Ophthalmic) 3.5-82035-8 - 3-4 drops to left eye 4 times a day while awake * Follow up:* 1 month * Recommendations:* Encouraged her to quit smoking JUDIT. Functional Status Description No Information Available Mental Status Description No Information Available Referrals Refer to Reason for Referral Status Appt Date [facility] Recurrent syncope. ? seizure Sent [address] [place] [address] [phone] [facility] 25 year old female with r ecent tonic-clonic seizure and admission to [facility]. Patient is 4 weeks . Please evaluate and treat. Thank you. Closed 01/13/[address] [place] [address] [phone]
--- OUTSIDE RECORDS SUMMARY | 2021-06-25 10:55 | CCD | Continuity of Care Document ---
Author Author Milagros PAYNE MD Organization Unknown Address [address] [place] [address] Phone [phone] Care Team Providers Care Poly Packer And Heat Sealer Name Role Phone Berenice Payne MD AUTM [phone] [facility] AUTM [phone] [facility] AUTM [phone] [facility] AUTM [phone] Problems Active Problems Provider Date Tobacco user [...] MD 04/02/2021 - 05/06/2021 Neomycin/Polymyxin/Hydrocortisone (Ophth almic) 3.5-45513-2 Suspension 3-4 drops to left eye 4 times a day while awake 7.500ml Berenice Payne MD 04/02/2021 - 04/03 Immunizations CPT Code Status Date Vaccine Lot # [id number] Given 01/12/2017 Tdap (Boostrix/Adacel) [place] [id number] Given 2016 Influenza (>35 months) P.F. Vaccine [...] H/L Range Note CBC No Diff 04/02/2021 [facility] CBC No Diff (SEE NOTE) 1, 2 [...] 7.4 - 10.4 Comprehensive Metabolic Panel 04/02/2021 [facility] ospital Comprehensive Metabo (SEE NOTE) 3 Sodium [...] >60 mL/min 4 Laboratory test finding 04/02/2021 [facility] TSH Highly Sensitive 0.88 uIU/mL 0.47 - 5.01 Vitamin B12 Serum 446 pg/mL 232 - 1245 Medwatch Toxassure Select 13 02/14/2021 [facility] Ramirez [facility] Summary Report (Summary) FINAL 5, 6 PDF . Drug Eval Toxicology ED Only 01/05/2021 [facility] Amphetamines Level Urine NEGATIVE Normal Negative Barbiturates Urine NEGATIVE Normal Negative Benzodiazepines Urine NEGATIVE Normal Negative Cannabinoids Urine POSITIVE High Negative Cocaine Metabolite Urine NEGATIVE Normal Negative Methadone Urine NEGATIVE Normal Negative Opiates Urine NEGATIVE Normal Negative Phencyclidine Urine NEGATIVE Normal Negative 7 Complete Blood Count 01/05/2021 [facility] White Blood Count 14.4 10 High 4.0-10.0 [...] % Normal 0-0 Comprehensive Metabolic Profil 01/05/2021 [facility] Glucose, Fasting 100 mg/dL Normal 70-100 Blood [...] 1.0 Low 1.2-2.2 Laboratory test finding 01/05/2021 [facility] HCG Serum Qualitative POSITIVE Abnormal Negative HCG, Serum Quantitative 142 MIU/ML Normal 9 CBC No Diff 12/26/2020 [facility] CBC No Diff (SEE NOTE) 10, 11 [...] 7.4 - 10.4 Comprehensive Metabolic Panel 12/26/2020 [facility] Comprehensive Metabo (SEE NOTE) 12 Sodium [...] >60 mL/min 13 Laboratory test finding 12/26/2020 [facility] TSH Highly Sensitive 1.56 uIU/mL 0.47 - 5.01 Sujatha Ifa Negative 14 Ra Quant <10 IU/mL 0 - 14 Sedimentation Rate 12/26/2020 [facility] Sed Rate 1 mm/hr 0 - 20 Sed Rate Reenter 1 [facility] U/L High 30 [...] test is not intended to distinguish between rndey-2-uqxtyipulotyxflutfxv, the predominant form of THC in most herbal or marijuana-based products, and dyetq-0-jtfxmwyoqtsrrxnnfzyu. Test Result Flag Units Ref Range Creatinine [...] Little GFR Left ESRD GFR <15 on ELECTRIFICATION ADVISER 9 GESTATIONAL AGE APPROXIMATE HCG RANGE (MIU/ML) [...] monitoring the treatment of cancer patients. Siemens [employer] methodology. 10 Is patient fasting? N 11 [...] ng/ml Procedures Date Code Description Status 05/20/2021 42349 Office/Outpatient Established Lo w MDM 20-29 Min Completed 05/06/2021 61969 Psychiatric Diag Eval W/Medical Service Completed 04/02/2021 80990 Office/Outpatient Established Lo w MDM 20-29 Min Completed 02/14/2021 91692 Preventive Counseling Indiv 45 M in Completed 01/13/2021 36381 Psychiatric Diagnostic Evaluatio n Completed 11/19/2020 42502 Office/Outpatient Established Lo w MDM 20-29 Min [...] Other specified depressive episo serjio Davin Lukasz, [facility] 04/30/2021 F41.9 Anxiety disorder, unspecified Mi eliu Lal, [facility] 04/30/2021 Z63.79 Other stressful life events affe cting family and household Davin Lukasz, [facility] 04/08/2021 F32.89 Other specified depressive episo serjio Davin Lukasz, [facility] 04/08/2021 F41.9 Anxiety disorder, unspecified Mi eliu Lal, [facility] 04/08/2021 Z63.79 Other stressful life events affe cting family and household Davin Lal, [facility] 04/02/2021 F32.89 Other specified depressive episo serjio Berenice Payne MD 04/02/2021 R63.4 Abnormal weight loss Berenice wilder MD 04/02/2021 H10.9 Unspecified conjunctivitis Berenice Payne MD 03/24/2021 F32.89 Other specified depressive episo serjio Davin Lal, [facility] 03/24/2021 F41.9 Anxiety disorder, unspecified Sri Lal, [facility] 03/24/2021 Z63.79 Other stressful life events affe cting family and household Davin Lal, [facility] 03/14/2021 F32.89 Other specified depressive episo serjio Davin Lal, [facility] 03/14/2021 F41.9 Anxiety disorder, unspecified Sri Lal, [facility] 03/14/2021 Z63.79 Other stressful life events affe cting family and household Davin Lal, [facility] 02/20/2021 F32.89 Other specified depressive episo serjio Davin Lal, [facility] 02/20/2021 F41.9 Anxiety disorder, unspecified Sri Lal, [facility] 02/20/2021 Z63.79 Other stressful life events affe cting family and household Davin Lal, [facility] 02/14/2021 F32.89 Other specified depressive episo serjio Gia Veras, RN 02/14/2021 F41.9 Anxiety disorder, unspecified Romi Veras RN 02/13/2021 F41.9 Anxiety disorder, unspecified Sri Lal, [facility] 02/13/2021 F32.89 Other specified depressive episo serjio Davin Lal, [facility] 01/13/2021 F41.9 Anxiety disorder, unspecified Sri Lal, [facility] 01/13/2021 F32.89 Other specified depressive episo serjio Davin Lal, [facility] 12/26/2020 M79.10 Myalgia, unspecified site Berenice trejo MD 12/26/2020 F41.9 Anxiety disorder, unspecified An charu Payne MD 12/26/2020 F32.89 Other specified depressive episo serjio Berenice Payne MD 11/19/2020 F32.89 Other specified depressive episo serjio Berenice Payne MD 11/19/2020 F41.9 Anxiety disorder, unspecified An charu Payne MD Plan of Treatment Future Appointment(s):* 09/19/2021 1:00 pm - Berenice Payne MD at [facility] * 06/06/2021 2:00 pm - MI Mckeon at [facility] * 06/16/2021 2:00 pm - Neal Lamb PA-C at [facility] 05/20/2021 - Berenice Payne MD* F32.89 Other [...] to Reason for Referral Status Appt Date [facility] Recurrent syncope. ? seizure Sent [address] [place] [address] [phone] [facility] 25 year old female with r ecent tonic-clonic seizure and admission to [facility]. Patient is 4 weeks . Please evaluate and treat. Thank you. Closed 01/13/2021 [address] [place] [address] [phone]
--- OUTSIDE RECORDS SUMMARY | 2021-06-25 10:55 | CCD | Continuity of Care Document ---
Author Author Milagros PAYNE MD Organization Unknown Address [address] [place] [address] Phone [phone] Care Team Providers Care Data Developer Name Role Phone Berenice Payne MD AUTM [phone] [facility] Behavioral Health AUTM [phone] [facility] AUTM [phone] [facility] AUTM [phone] Problems Active Problems Provider Date Tobacco user [...] MD 04/02/2021 - 05/06/2021 Neomycin/Polymyxin/Hydrocortisone (Ophth almic) 3.5-08611-3 Suspension 3-4 drops to left eye 4 times a day while awake 7.500ml Berenice Payne MD 04/02/2021 - 04/03 Immunizations CPT Code Status Date Vaccine Lot # [id number] Given 01/12/2017 Tdap (Boostrix/Adacel) [place] [id number] Given 2016 Influenza (>35 months) P.F. Vaccine [...] H/L Range Note CBC No Diff 04/02/2021 [facility] CBC No Diff (SEE NOTE) 1, [...] 7.4 - 10.4 Comprehensive Metabolic Panel 04/02/2021 [facility] Comprehensive Metabo (SEE NOTE) 3 [...] >60 mL/min 4 Laboratory test finding 04/02/2021 [facility] TSH Highly Sensitive 0.88 uIU/mL 0.47 - 5.01 Vitamin B12 Serum 446 pg/mL 232 - 1245 Medwatch Toxassure Select 13 02/14/2021 [facility] inomark Summary Report (Summary) FINAL 5, 6 PDF . Drug Eval Toxicology ED Only 01/05/2021 [facility] Amphetamines Level Urine NEGATIVE Normal Negative Barbiturates Urine NEGATIVE Normal Negative Benzodiazepines Urine NEGATIVE Normal Negative Cannabinoids Urine POSITIVE High Negative Cocaine Metabolite Urine NEGATIVE Normal Negative Methadone Urine NEGATIVE Normal Negative Opiates Urine NEGATIVE Normal Negative Phencyclidine Urine NEGATIVE Normal Negative 7 Complete Blood Count 01/05/2021 [facility] White Blood Count 14.4 10 High 4.0-10.0 [...] % Normal 0-0 Comprehensive Metabolic Profil 01/05/2021 [facility] Glucose, Fasting 100 mg/dL Normal 70-100 Blood [...] 1.0 Low 1.2-2.2 Laboratory test finding 01/05/2021 [facility] HCG Serum Qualitative POSITIVE Abnormal Negative HCG, Serum Quantitative 142 MIU/ML Normal 9 CBC No Diff 12/26/2020 [facility] CBC No Diff (SEE NOTE) 10, [...] 7.4 - 10.4 Comprehensive Metabolic Panel 12/26/2020 [facility] Comprehensive Metabo (SEE NOTE) 12 [...] >60 mL/min 13 Laboratory test finding 12/26/2020 [facility] TSH Highly Sensitive 1.56 uIU/mL 0.47 - 5.01 Sujatha Ifa Negative 14 Ra Quant <10 IU/mL 0 - 14 Sedimentation Rate 12/26/2020 [facility] Sed Rate 1 mm/hr 0 - 20 Sed Rate Reenter 1 Laboratory test finding [facility] U/L High 30 [...] test is not intended to distinguish between vivsg-6-vcuopjmvxnfdlmoaivjf, the predominant form of THC in most herbal or marijuana-based products, and zelqi-2-clxnacvienwzhfhvgrfm. Test Result Flag Units Ref Range Creatinine [...] Little GFR Left ESRD GFR <15 on HOUSEKEEPING ASSISTANT 9 GESTATIONAL AGE APPROXIMATE HCG RANGE (MIU/ML) [...] monitoring the treatment of cancer patients. Siemens YouSticker methodology. 10 Is patient fasting? N 11 [...] ng/ml Procedures Date Code Description Status 05/20/2021 31441 Office/Outpatient Established Lo w MDM 20-29 Min Completed 05/06/2021 61374 Psychiatric Diag Eval W/Medical Service Completed 04/02/2021 64556 Office/Outpatient Established Lo w MDM 20-29 Min Completed 02/14/2021 73796 Preventive Counseling Indiv 45 M in Completed 01/13/2021 03123 Psychiatric Diagnostic Evaluatio n Completed 11/19/2020 92835 Office/Outpatient Established Lo w MDM 20-29 Min [...] Other specified depressive episo serjio Davin Lukasz, [facility] 04/30/2021 F41.9 Anxiety disorder, unspecified Mi eliu Lal, [facility] 04/30/2021 Z63.79 Other stressful life events affe cting family and household Davin Lukasz, [facility] 04/08/2021 F32.89 Other specified depressive episo serjio Davin Lukasz, [facility] 04/08/2021 F41.9 Anxiety disorder, unspecified Mi eliu Lal, [facility] 04/08/2021 Z63.79 Other stressful life events affe cting family and household Davin Lal, [facility] 04/02/2021 F32.89 Other specified depressive episo serjio Berenice Payne MD 04/02/2021 R63.4 Abnormal weight loss Berenice wilder MD 04/02/2021 H10.9 Unspecified conjunctivitis Berenice Payne MD 03/24/2021 F32.89 Other specified depressive episo serjio Davin Lal, [facility] 03/24/2021 F41.9 Anxiety disorder, unspecified Sri Lal, [facility] 03/24/2021 Z63.79 Other stressful life events affe cting family and household Davin Lal, [facility] 03/14/2021 F32.89 Other specified depressive episo serjio Davin Lal, [facility] 03/14/2021 F41.9 Anxiety disorder, unspecified Sri Lal, [facility] 03/14/2021 Z63.79 Other stressful life events affe cting family and household Davin Lal, [facility] 02/20/2021 F32.89 Other specified depressive episo serjio Davin Lal, [facility] 02/20/2021 F41.9 Anxiety disorder, unspecified Sri Lal, [facility] 02/20/2021 Z63.79 Other stressful life events affe cting family and household Davin Lal, [facility] 02/14/2021 F32.89 Other specified depressive episo serjio Gia Veras, RN 02/14/2021 F41.9 Anxiety disorder, unspecified Romi Veras RN 02/13/2021 F41.9 Anxiety disorder, unspecified Sri Lal, [facility] 02/13/2021 F32.89 Other specified depressive episo serjio Davin Lal, [facility] 01/13/2021 F41.9 Anxiety disorder, unspecified Sri Lal, [facility] 01/13/2021 F32.89 Other specified depressive episo serjio Davin Lal, [facility] 12/26/2020 M79.10 Myalgia, unspecified site Berenice trejo MD 12/26/2020 F41.9 Anxiety disorder, unspecified An charu Payne MD 12/26/2020 F32.89 Other specified depressive episo serjio Berenice Payne MD 11/19/2020 F32.89 Other specified depressive episo serjio Berenice Payne MD 11/19/2020 F41.9 Anxiety disorder, unspecified An charu Payne MD Plan of Treatment Future Appointment(s):* 09/19/2021 1:00 pm - Berenice Payne MD at [facility] * 06/06/2021 2:00 pm - MI Mckeon at [facility] * 06/16/2021 2:00 pm - Neal Lamb PA-C at [facility] 05/20/2021 - Berenice Payne MD* F32.89 [...] to Reason for Referral Status Appt Date [facility] Recurrent syncope. ? seizure Sent 0 [address] [place] [address] [phone] [facility] 25 year old female with r ecent tonic-clonic seizure and admission to [facility]. Patient is 4 weeks . Please evaluate and treat. Thank you. Closed 01/13/2021 [address] [place] [address] [phone]
--- OUTSIDE RECORDS SUMMARY | 2021-06-25 10:55 | CCD | Continuity of Care Document ---
Author Author Milagros LAMB PA-C Organization Unknown Address [facility] Behavioral Health [address] [place] [address] Phone [phone] Care Team Providers Care Passenger Train Braker Name Role Phone Berenice Payne MD AUTM [phone] [facility] Behavioral Health AUTM [phone] [facility] AUTM [phone] [facility] AUTM [phone] Problems Active Problems Provider Date Tobacco user [...] MD 04/02/2021 - 05/06/2021 Neomycin/Polymyxin/Hydrocortisone (Ophth almic) 3.5-74965-5 Suspension 3-4 drops to left eye 4 times a day while awake 7.500ml Berenice Payne MD 04/02/2021 - 04/03 Immunizations CPT Code Status Date Vaccine Lot # [id number] Given 01/12/2017 Tdap (Boostrix/[place] [id number] Given 2016 Influenza (>35 months) P.F. Vaccine [...] H/L Range Note CBC No Diff 04/02/2021 [facility] CBC No Diff (SEE NOTE) [...] 10.4 Comprehensive Metabolic Panel 04/02/2021 [facility]ital Comprehensive Metabo (SEE NOTE) 3 [...] Normal Negative 7 Complete Blood Count 01/05/2021 [facility] White Blood Count 14.4 10 High [...] % Normal 0-0 Comprehensive Metabolic Profil 01/05/2021 [facility] Glucose, Fasting 100 mg/dL Normal 70-100 [...] 1.0 Low 1.2-2.2 Laboratory test finding 01/05/2021 [facility] HCG Serum Qualitative POSITIVE Abnormal Negative HCG, Serum Quantitative 142 MIU/ML Normal 9 CBC No Diff 12/26/2020 [facility] CBC No Diff (SEE NOTE) [...] 10.4 Comprehensive Metabolic Panel 12/26/2020 [facility] Comprehensive Metabo (SEE NOTE) 12 [...] >60 mL/min 13 Laboratory test finding 12/26/2020 [facility] TSH Highly Sensitive 1.56 uIU/mL 0.47 - 5.01 Sujatha Ifa Negative 14 Ra Quant <10 IU/mL 0 - 14 Sedimentation Rate 12/26/2020 [facility] Sed Rate 1 mm/hr 0 - 20 Sed Rate Reenter 1 Laboratory test finding 12/26/2020 [facility] CPK 221 U/L High 30 - 170 Vitamin B12 Serum 329 pg/mL 232 - 1245 Folic Acid Serum(Folate) 7.7 NG/ML 5.0 - 27.2 Vitamin D (25-Hydroxy) 21 NG/ML 15 Magnesium Serum 1.8 mg/dL 1.7 - 2.2 Laboratory test finding 11/13/2020 [facility]-h[facility] < 5.0 Normal 16 1 Is [...] test is not intended to distinguish between gizxa-0-okbrlfuinycwcbklpnel, the predominant form of THC in most herbal or marijuana-based products, and mfdoc-3-jayzosrwtapnmainscho. Test Result Flag Units Ref Range Creatinine [...] Little GFR Left ESRD GFR <15 on DRAGGER 9 GESTATIONAL AGE APPROXIMATE HCG RANGE (MIU/ML) [...] monitoring the treatment of cancer patients. Siemens InCytu methodology. 10 Is patient fasting? N 11 [...] POSITIVE Procedures Date Code Description Status 05/06/2021 89459 Psychiatric Diag Eval W/Medical Service Completed 04/02/2021 23912 Office/Outpatient Established Lo w MDM 20-29 Min Completed 02/14/2021 77781 Preventive Counseling Indiv 45 M in Completed 01/13/2021 66757 Psychiatric Diagnostic Evaluatio n Completed 11/19/2020 79648 Office/Outpatient Established Lo w MDM 20-29 Min Completed Medical Devices Description No Information Available Encounters Description No Information Available Assessments Date Code Description Provider 05/06/2021 F32.89 Other specified depressive episo serjio Neal Lamb PA-C 05/06/2021 F41.9 Anxiety disorder, unspecified Ca ashley Lamb PA-C 05/06/2021 F12.90 Cannabis use, unspecified, uncom plicated Neal Lamb PA-C 04/30/2021 F32.89 Other specified depressive episo serjio Davin Lal, [facility] 04/30/2021 F41.9 Anxiety disorder, unspecified Sri Lal, [facility] 04/30/2021 Z63.79 Other stressful life events affe cting family and household Davin Lukasz, [facility] 04/08/2021 F32.89 Other specified depressive episo serjio Davin Lal, [facility] 04/08/2021 F41.9 Anxiety disorder, unspecified Sri Lal, [facility] 04/08/2021 Z63.79 Other stressful life events affe cting family and household Davin Lukasz, [facility] 04/02/2021 F32.89 Other specified depressive episo serjio Berenice Payne MD 04/02/2021 R63.4 Abnormal weight loss Berenice wilder MD 04/02/2021 H10.9 Unspecified conjunctivitis Berenice Payne MD 03/24/2021 F32.89 Other specified depressive episo serjio Davin Lal, [facility] 03/24/2021 F41.9 Anxiety disorder, unspecified Mi eliu Lal, [facility] 03/24/2021 Z63.79 Other stressful life events affe cting family and household Davin Lal, [facility] 03/14/2021 F32.89 Other specified depressive episo serjio Davin Lal, [facility] 03/14/2021 F41.9 Anxiety disorder, unspecified Sri Lal, [facility] 03/14/2021 Z63.79 Other stressful life events affe cting family and household Davin Lal, [facility] 02/20/2021 F32.89 Other specified depressive episo serjio Davin Lal, [facility] 02/20/2021 F41.9 Anxiety disorder, unspecified Mi eliu Lal, [facility] 02/20/2021 Z63.79 Other stressful life events affe cting family and household Davin Lal, [facility] 02/14/2021 F32.89 Other specified depressive episo serjio Gia Veras, [facility] 02/14/2021 F41.9 Anxiety disorder, unspecified An samaria Veras, [facility] 02/13/2021 F41.9 Anxiety disorder, unspecified Sri Lal, [facility] 02/13/2021 F32.89 Other specified depressive episo serjio Davin Lal, [facility] 01/13/2021 F41.9 Anxiety disorder, unspecified Mi eliu Lal, [facility] 01/13/2021 F32.89 Other specified depressive episo serjio Davin Lal, [facility] 12/26/2020 M79.10 Myalgia, unspecified site Berenice trejo MD 12/26/2020 F41.9 Anxiety disorder, unspecified An charu Payne MD 12/26/2020 F32.89 Other specified depressive episo serjio Beernice Payne MD 11/19/2020 F32.89 Other specified depressive episo serjio Berenice Payne MD 11/19/2020 F41.9 Anxiety disorder, unspecified An charu Payne MD Plan of Treatment Future Appointment(s):* 06/16/2021 2:00 pm - Neal Lamb PA-C at [facility] * 05/20/2021 3:00 pm - Davin Lal [facility] at [facility] * 05/20/2021 1:00 pm - Berenice Payne MD at [facility] 04/02/2021 - Berenice Payne MD* F32.89 Other [...] by mouth every day * Neomycin/Polymyxin/Hydrocortisone (Ophthalmic) 3.5-87074-9 - 3-4 drops to left eye 4 times a day while awake * Follow up:* 1 month * Recommendations:* Encouraged her to quit smoking JUDIT. Functional Status Description No Information Available Mental Status Description No Information Available Referrals Refer to Reason for Referral Status Appt Date [facility] Recurrent syncope. ? seizure Sent [address] [place] [address] [phone] [facility] 25 year old female with r ecent tonic-clonic seizure and admission to [facility]. Patient is 4 weeks . Please evaluate and treat. Thank you. Closed 01/13/[address] [place] [address] [phone]
--- OUTSIDE RECORDS SUMMARY | 2021-06-25 10:55 | CCD | Continuity of Care Document ---
Author Author Milagros PAYNE MD Organization Unknown Address [address] [place] [address] Phone [phone] Care Team Providers Care Custom Tailor Name Role Phone Berenice Payne MD AUTM [phone] [facility] Behavioral Health AUTM [phone] [facility] AUTM [phone] [facility] AUTM [phone] Problems Active Problems Provider Date Tobacco user [...] MD 04/02/2021 - 05/06/2021 Neomycin/Polymyxin/Hydrocortisone (Ophth almic) 3.5-90006-5 Suspension 3-4 drops to left eye 4 times a day while awake 7.500ml Berenice Payne MD 04/02/2021 - 04/03 Immunizations CPT Code Status Date Vaccine Lot # [id number] Given 01/12/2017 Tdap (Boostrix/Adacel) [place] [id number] Given 2016 Influenza (>35 months) P.F. Vaccine [...] H/L Range Note CBC No Diff 04/02/2021 [facility] CBC No Diff (SEE NOTE) 1, [...] 7.4 - 10.4 Comprehensive Metabolic Panel 04/02/2021 [facility]ital Comprehensive Metabo (SEE NOTE) 3 [...] mL/min 4 Laboratory test finding 04/02/2021 [facility] TSH Highly Sensitive 0.88 uIU/mL 0.47 - 5.01 Vitamin B12 Serum 446 pg/mL 232 - 1245 Medwatch Toxassure Select 13 02/14/2021 [facility] inomark Summary Report (Summary) FINAL 5, 6 PDF . Drug Eval Toxicology ED Only 01/05/2021 [facility] Amphetamines Level Urine NEGATIVE Normal Negative Barbiturates Urine NEGATIVE Normal Negative Benzodiazepines Urine NEGATIVE Normal Negative Cannabinoids Urine POSITIVE High Negative Cocaine Metabolite Urine NEGATIVE Normal Negative Methadone Urine NEGATIVE Normal Negative Opiates Urine NEGATIVE Normal Negative Phencyclidine Urine NEGATIVE Normal Negative 7 Complete Blood Count 01/05/2021 [facility] White Blood Count 14.4 10 High [...] % Normal 0-0 Comprehensive Metabolic Profil 01/05/2021 [facility] Glucose, Fasting 100 mg/dL Normal 70-100 [...] 1.0 Low 1.2-2.2 Laboratory test finding 01/05/2021 [facility] HCG Serum Qualitative POSITIVE Abnormal Negative HCG, Serum Quantitative 142 MIU/ML Normal 9 CBC No Diff 12/26/2020 [facility] CBC No Diff (SEE NOTE) 10, [...] 7.4 - 10.4 Comprehensive Metabolic Panel 12/26/2020 [facility] Comprehensive Metabo (SEE NOTE) 12 [...] mL/min 13 Laboratory test finding 12/26/2020 [facility] TSH Highly Sensitive 1.56 uIU/mL 0.47 - 5.01 Sujatha Ifa Negative 14 Ra Quant <10 IU/mL 0 - 14 Sedimentation Rate 12/26/2020 [facility] Sed Rate 1 mm/hr 0 - 20 Sed Rate Reenter 1 Laboratory test finding [facility]K 221 U/L High 30 [...] test is not intended to distinguish between thgir-7-ownoepbvlzgovnraklfc, the predominant form of THC in most herbal or marijuana-based products, and bnesy-4-iggobihlxxsdrfcnyndk. Test Result Flag Units Ref Range Creatinine [...] Little GFR Left ESRD GFR <15 on AIRCRAFT MOTOR MECHANIC 9 GESTATIONAL AGE APPROXIMATE HCG RANGE (MIU/ML) [...] monitoring the treatment of cancer patients. Siemens The Cloakroom methodology. 10 Is patient fasting? N 11 [...] ng/ml Procedures Date Code Description Status 05/20/2021 13271 Office/Outpatient Established Lo w MDM 20-29 Min Completed 05/06/2021 56770 Psychiatric Diag Eval W/Medical Service Completed 04/02/2021 97352 Office/Outpatient Established Lo w MDM 20-29 Min Completed 02/14/2021 38191 Preventive Counseling Indiv 45 M in Completed 01/13/2021 33222 Psychiatric Diagnostic Evaluatio n Completed 11/19/2020 07948 Office/Outpatient Established Lo w MDM 20-29 Min [...] Other specified depressive episo serjio Davin Lukasz, [facility] 04/30/2021 F41.9 Anxiety disorder, unspecified Mi eliu Lal, [facility] 04/30/2021 Z63.79 Other stressful life events affe cting family and household Davin Lukasz, [facility] 04/08/2021 F32.89 Other specified depressive episo serjio Davin Lukasz, [facility] 04/08/2021 F41.9 Anxiety disorder, unspecified Mi eliu Lal, [facility] 04/08/2021 Z63.79 Other stressful life events affe cting family and household Davin Lla, [facility] 04/02/2021 F32.89 Other specified depressive episo serjio Berenice Payne MD 04/02/2021 R63.4 Abnormal weight loss Berenice wilder MD 04/02/2021 H10.9 Unspecified conjunctivitis Berenice Payne MD 03/24/2021 F32.89 Other specified depressive episo serjio Davin Lal, [facility] 03/24/2021 F41.9 Anxiety disorder, unspecified Sri Lal, [facility] 03/24/2021 Z63.79 Other stressful life events affe cting family and household Davin Lal, [facility] 03/14/2021 F32.89 Other specified depressive episo serjio Davin Lal, [facility] 03/14/2021 F41.9 Anxiety disorder, unspecified Sri Lal, [facility] 03/14/2021 Z63.79 Other stressful life events affe cting family and household Davin Lal, [facility] 02/20/2021 F32.89 Other specified depressive episo serjio Davin Lal, [facility] 02/20/2021 F41.9 Anxiety disorder, unspecified Sri Lal, [facility] 02/20/2021 Z63.79 Other stressful life events affe cting family and household Davin Lal, [facility] 02/14/2021 F32.89 Other specified depressive episo serjio Gia Veras, RN 02/14/2021 F41.9 Anxiety disorder, unspecified Romi Veras RN 02/13/2021 F41.9 Anxiety disorder, unspecified Sri Lal, [facility] 02/13/2021 F32.89 Other specified depressive episo serjio Davin Lal, [facility] 01/13/2021 F41.9 Anxiety disorder, unspecified Sri Lal, [facility] 01/13/2021 F32.89 Other specified depressive episo serjio Davin Lal, [facility] 12/26/2020 M79.10 Myalgia, unspecified site Berenice trejo MD 12/26/2020 F41.9 Anxiety disorder, unspecified An charu Payne MD 12/26/2020 F32.89 Other specified depressive episo serjio Berenice Payne MD 11/19/2020 F32.89 Other specified depressive episo serjio Berenice Payne MD 11/19/2020 F41.9 Anxiety disorder, unspecified An charu Payne MD Plan of Treatment Future Appointment(s):* 09/19/2021 1:00 pm - Berenice Payne MD at [facility] * 06/06/2021 2:00 pm - MI Mckeon at [facility] * 06/16/2021 2:00 pm - Neal Lamb PA-C at [facility] 05/20/2021 - Berenice Payne MD* F32.89 Other [...] to Reason for Referral Status Appt Date [facility] Recurrent syncope. ? seizure Sent 0 [address] [place] [address] [phone] [facility] 25 year old female with r ecent tonic-clonic seizure and admission to [facility]. Patient is 4 weeks . Please evaluate and treat. Thank you. Closed 01/13/2021 [address] [place] [address] [phone]
--- OUTSIDE RECORDS SUMMARY | 2021-06-25 10:56 | CCD ---
Continuity of Care Document (CCD) Created on: 04/20/2021 Milagros Baker External Reference #: [id number] : [id number] Sex: Female Author Author Milagros RICHARDSON M.D. Organization Unknown Address [address] [place] [address] Phone [phone] Care Team Providers Care Sr. Pricing Analyst Name Role Phone Berenice Payne M.D. AUTM [phone] Problems Active Problems Provider Date Generalized-onset seizures Alma Rosa Richardson M.D. Onset: 12/22 Depressive disorder Onset: 11/01/2020 Anxiety state Onset: 07/04/2019 Asthma Onset: 04/19/2018 Obesity Onset: 04/19/2018 Migraine without aura, not refractory On set: 04/19/2018 Tobacco user Onset: 01/06/2017 Social History Type Date Description Comments Sex Unknown Allergies, Adverse Reactions, Alerts Description No Known Drug Allergies Medications Active Medications SIG Qnty Indications Ordering Provide r Date Levetiracetam 500mg Tablets Take 1 tab PO bid. 60taluna Richardson M.D. 02/04/2021 Albuterol Sulfate HFA 108(90Base) mcg/Act Aerosol inhale 2 puff by mouth every 4 hours as needed 17unBerenice Olvera M.D. 11/20/2020 History Medications Citalopram Hydrobromide 20mg Table ts Half tablet by mouth daily for a week and increase to one daily if tolerated. 90taBerenice Winkler M.D. 11/01/2020 - 12/26/2020 Immunizations Description No Information Available Vital Signs Date Vital Result Comment 04/16/2021 2:03pm Respiratory Rate 12 /min Height 66 inches 5'6" Weight 154.00 lb BMI (Body Mass Index) 24.9 kg/m2 [place] Body Weight 130 lb 01/13/2021 12:59pm Respiratory Rate 12 /min Height 66 inches 5'6" Weight 154.00 lb BMI (Body Mass Index) 24.9 kg/m2 [place] Body Weight 130 lb Results Test Acquired Date Facility Test Result H/L Range Note Drug Eval Toxicology ED Only 01/05/2021 N2N/CCD Imp ort Amphetamines Level Urine Negative Barbiturates Urine Negative Benzodiazepines Urine Negative Cannabinoids Urine Positive High Cocaine Metabolite Urine Negative Methadone Urine Negative Opiates Urine Negative Phencyclidine Urine Negative 1 Complete Blood Count 01/05/2021 N2N/CCD Import White Blood Count 14.4 10 High 4.0-10.0 Red Blood Count 4.94 10 4.00-5.40 Hemoglobin 15.7 g/dL High 12.0-15.5 Hematocrit 46.8 % 36.0-47.0 Mean Corpuscular Volume 94.7 fl 80.0-96.0 Mean Corpuscular Hemoglobin 31.8 pg 27.0-33.0 Mean Corpuscular HGB Conc 33.5 g/dL 32.0-36.5 Red Cell Distribution Width 14.2 % 11.5-14.5 Platelet Count, Automated 322 10 150-450 Nucleated Red Blood Cell % 0.0 % 0-0 Comprehensive Metabolic Profil 01/05/2021 N2N/CCD I [place] Glucose, Fasting 100 mg/dL 70-100 Blood Urea Nitrogen 13 mg/dL 7-18 Creatinine For GFR 0.73 mg/dL 0.55-1.30 Glomerular Filtration Rate > 60.0 2 Sodium Level 139 mEq/L 136-145 Potassium Serum 3.8 mEq/L 3.5-5.1 Chloride Level 109 mEq/L High 98-107 Carbon Dioxide Level 27 mEq/L 21-32 Anion Gap 3 mEq/L Low 8-16 Calcium Level 8.3 mg/dL Low 8.5-10.1 Ast/Sgot 12 U/L 7-37 Alt/SGPT 19 U/L 12-78 Alkaline Phosphatase 54 U/L 45-117 Bilirubin,Total 0.6 mg/dL 0.2-1.0 Total Protein 7.5 GM/DL 6.4-8.2 Albumin 3.7 GM/DL 3.2-5.2 Albumin/Globulin Ratio 1.0 1 Low 1.2-2.2 Laboratory test finding 01/05/2021 N2N/CCD Import HCG Serum Qualitative Positive Abnormal HCG, Serum Quantitative 142 MIU/ML 3 CBC No Diff 12/26/2020 N2N/CCD Import CBC No Diff (See Note) 4, 5 WBC 11.7 10^3/uL High 4.2-11.0 RBC 4.65 10^6/uL 4.20-5.40 Hemoglobin 15.0 g/dL 12.0-16.0 Hematocrit 44.2 % 37.0-47.0 MCV 95.1 fL 81.0-101 MCH 32.3 pg 27.0-34.0 MCHC 33.9 g/dL 31.0-36.0 RDW 14.7 % High 11.5-14.5 Platelets 269 10^3/uL 150-450 MPV 10.3 fL 7.4-10.4 Comprehensive Metabolic Panel 12/26/2020 N2N/CCD Im port Comprehensive Metabo (See Note) 6 Sodium 138 mEq/L 134-153 Potassium 4.3 mEq/L 3.6-5.0 Chloride 103 mEq/L 98-107 Co2 28 mEq/L 22-30 Glucose 88 mg/dL 70-99 BUN 6 mg/dL Low 7-21 Creatinine 0.6 mg/dL Low 0.7-1.5 BUN/Creat 10 1 8-27 Total Protein 6.7 g/dL 6.3-8.2 Albumin 4.1 g/dL 3.9-5.0 Globulin 2.6 GM/DL 2.4-3.2 A/G Ratio 1.6 1 0.8-2.0 Calcium 9.1 mg/dL 8.4-10.2 Total Bili <0.7 mg/dL 0.2-1.3 Alkaline Phos 51 U/L 38-126 Sgot/Ast 25 U/L 5-40 SGPT/Alt 19 U/L 7-56 Anion Gap 7.0 mmol/L Low 8.0-16.0 Age 25 yrs Non-Aa GFR >60 mL/min Afr Amer GFR >60 mL/min 7 Laboratory test finding 12/26/2020 N2N/CCD Import TSH Highly Sensitive 1.56 uIU/mL 0.47-5.01 Sujatha Ifa Negative 8 Ra Quant <10 Iu/ml 0-14 Sedimentation Rate 12/26/2020 N2N/CCD Import Sed Rate 1 mm/hr 0-20 Sed Rate Reenter 1 Laboratory test finding 12/26/2020 N2N/CCD Import CPK 221 U/L High 30-170 Vitamin B12 Serum 329 pg/mL 232-1245 Folic Acid Serum(Folate) 7.7 ng/mL 5.0-27.2 Vitamin D (25-Hydroxy) 21 ng/mL 9 Magnesium Serum 1.8 mg/dL 1.7-2.2 1 ALL PRESUMPTIVE POSITIVE FINDINGS ARE UNCONFIRMED THRESHOLD [...] CLOSELY RELATED COMPOUNDS PLEASE CALL THE LAB. 2 Units are mL/min/1.73 m2 Chronic Kidney Disease Staging per NKF: Stage I & II GFR >=60 Normal to Mildly Decreased Stage III GFR 30-59 Moderately Decreased Stage IV GFR 15-29 Severely Decreased Stage V GFR <15 Very Little GFR Left ESRD GFR <15 on MFG ASSOC 3 GESTATIONAL AGE APPROXIMATE HCG RANGE (MIU/ML) - [...] or monitoring the treatment of cancer patients. Kozio methodology. 4 Is patient fasting? N 5 COMPLETE BLOOD COUNT 6 COMPREHENSIVE METABOLIC PANE L 7 Male GFR Interprentation 20-49 yrs >60 mL/min Normal 50-59 yrs >56 mL/min Normal 60-69 yrs >49 mL/min Normal 70-79yrs >42 mL/min Normal 80 and above >35 mL/min Normal Female GFR Interpretation 20-39 yrs >60 mL/min Normal 40-49 yrs >58 mL/min Normal 50-59 yrs >51 mL/min Normal 60-69 yrs >45 mL/min Normal 70-79 yrs >39 mL/min Normal 80 and above >32 mL/min Normal 8 Negative <1:80 Borderline 1:80 Positive >1:80 9 VITAMIN-D(25HYDROXY) Deficiency: <=20 ng/ml Insufficiency: 21-29 ng/ml Preferred level: => 30 ng/ml Procedures Date Code Description Status 04/16/2021 33776 Office/Outpatient Established Hi gh MDM 40-54 Min Completed 02/18/2021 48398 EEG Complete STD Phys/QHP>60 HR< 84 HR W/O Video Completed 02/18/2021 70283 EEG Complete STD Phys/QHP>36 HR< 60 HR W/O Video Completed 01/13/2021 46143 Office/Outpatient Established Hi gh MDM 40-54 Min Completed 01/06/2021 46509 [facility] Initial Care Level 3 Co mpleted Medical Devices Description No Information Available Encounters Type Date Location Provider Dx Diagnosis Office Visit 04/16/2021 1:30p Main office - [place] Alma Rosa cervantes M.D. G40.309 Gen idiopathic epilepsy, not intractable , w/o stat epi Office Visit 01/13/2021 12:00p Main office - [place] Alma Rosa cervantes M.D. 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 01/06/2021 O99.351 Diseases of the nerv ous system complicating , first trimester Alma Rosa Richardson M.D. 01/06/2021 Z3A.01 Less than 8 weeks gestation of shyla arroyo Alma Rosa Richardson M.D. Plan of Treatment Future Appointment(s):* 2021 2:00 pm - Alma Rosa Richardson M.D. at Main office - [place] Functional Status Description No Information Available Mental Status Description No Information Available Referrals Description No Information Available
--- OUTSIDE RECORDS SUMMARY | 2021-06-25 10:56 | CCD | Continuity of Care Document ---
Author Author Milagros [facility] Organization Unknown Address [address] [place] [address] Phone [phone] Care Team Providers Care Clay Washer Name Role Phone Berenice Payne MD AUTM [phone] [facility] AUTM [phone] [facility] AUTM [facility] AUTM [phone] Problems Active Problems Provider Date Tobacco user [...] SIG Qnty Indications Ordering Provide r Date Neomycin/Polymyxin/Dexamethasone 0.1% Suspension 3-4 drops to left eye 4 times a day while awake 5ml Berenice Payne MD 04/03/2021 Venlafaxine HCL 37.5mg Tablets 1 by mouth every day 30tabs Berenice Payne MD 04/02/2021 Albuterol Sulfate HFA 108(90Base) mcg/Act Aerosol inhale 2 puff by mouth every 4 hours as needed 17gm Berenice Payne MD 11/20/2020 [facility] [employer] [facility] Carpal Tunnel Syndrome Bra ce/Left/Regular Misc wear daily for carpal tunnel 1units Lusi Borges MD 05/17/2020 [facility] Carpal Tunnel Syndrome Bra ce/Right/Regular Misc wear daily for carpal tunnel 1units Luis Borges MD 05/17/2020 Levetiracetam 500mg Tablets Unknown History Medications Neomycin/Polymyxin/Hydrocortisone (Ophth almic) 3.5-70555-7 Suspension 3-4 drops to left eye 4 times a day while awake 7.500ml Berenice Payne MD 04/02/2021 - 04/03 Citalopram Hydrobromide 20mg Table ts Half tablet by mouth daily for a week and increase to one daily if tolerated. 90tabs Berenice Payne MD 11/01/2020 - 12/26/2020 Immunizations CPT Code Status Date Vaccine Lot # [id number] Given 01/12/2017 Tdap (Boostrix/Ad[place]el) [place] [id number] Given 2016 Influenza (>35 months) P.F. Vaccine [...] Date Facility Test Result H/L Range Note Comprehensive Metabolic Panel 04/02/2021 [facility] Comprehensive Metabo (SEE NOTE) 1, 2 Sodium 136 mEq/L 134 - 153 Potassium [...] >60 mL/min Afr Amer GFR >60 mL/min 3 Laboratory test finding 04/02/2021 [facility] TSH Highly Sensitive 0.88 uIU/mL 0.47 - 5.01 Vitamin B12 Serum 446 pg/mL 232 - 1245 CBC No Diff 04/02/2021 [facility] CBC No Diff (SEE NOTE) 4 WBC 17.7 10^3/uL High 4.2 - 11.0 RBC 4.42 10^6/uL 4.20 - 5.40 Hemoglobin 13.8 g/dL 12.0 - 16.0 Hematocrit 41.3 % 37.0 - 47.0 MCV 93.4 fL 81.0 - 101 MCH 31.2 pg 27.0 - 34.0 MCHC 33.4 g/dL 31.0 - 36.0 RDW 13.4 % 11.5 - 14.5 Platelets 366 10^3/uL 150 - 450 MPV 10.6 fL High 7.4 - 10.4 Medwatch Toxassure Select 13 02/14/2021 Salome swartz Summary Report (Summary) FINAL 5, 6 PDF . Drug Eval Toxicology ED Only 01/05/2021 [facility] Amphetamines Level Urine NEGATIVE Normal Negative Barbiturates Urine NEGATIVE Normal Negative Benzodiazepines Urine NEGATIVE Normal Negative Cannabinoids Urine POSITIVE High Negative Cocaine Metabolite Urine NEGATIVE Normal Negative Methadone Urine NEGATIVE Normal Negative Opiates Urine NEGATIVE Normal Negative Phencyclidine Urine NEGATIVE Normal Negative 7 Complete Blood Count 01/05/2021 [facility] White Blood Count 14.4 10 High [...] % Normal 0-0 Comprehensive Metabolic Profil 01/05/2021 [facility] Glucose, Fasting 100 mg/dL Normal 70-100 [...] 1.0 Low 1.2-2.2 Laboratory test finding 01/05/2021 [facility] HCG Serum Qualitative POSITIVE Abnormal Negative HCG, Serum Quantitative 142 MIU/ML Normal 9 CBC No Diff 12/26/2020 [facility] CBC No Diff (SEE NOTE) 10, 11 [...] 450 MPV 10.3 fL 7.4 - 10.4 Laboratory test finding 12/26/2020 [facility] CPK 221 U/L High 30 - 170 Vitamin B12 Serum 329 pg/mL 232 - 1245 Folic Acid Serum(Folate) 7.7 NG/ML 5.0 - 27.2 Vitamin D (25-Hydroxy) 21 NG/ML 12 Magnesium Serum 1.8 mg/dL 1.7 - 2.2 Sedimentation Rate 12/26/2020 [facility] Sed Rate 1 mm/hr 0 - 20 Sed Rate Reenter 1 Laboratory test finding 12/26/2020 [facility] TSH Highly Sensitive 1.56 uIU/mL 0.47 - 5.01 Sujatha Ifa Negative 13 Ra Quant <10 IU/mL 0 - 14 Comprehensive Metabolic Panel 12/26/2020 [facility] Comprehensive Metabo (SEE NOTE) 14 Sodium 138 mEq/L 134 - 153 Potassium [...] >60 mL/min Afr Amer GFR >60 mL/min 15 Laboratory test finding 11/13/2020 [facility]-h[facility] < 5.0 Normal 16 CBC No Diff 11/01/2020 [facility] CBC No Diff (SEE NOTE) 17 WBC 8.4 10^3/uL 4.2 - 11.0 RBC 4.87 10^6/uL 4.20 - 5.40 Hemoglobin 15.5 g/dL 12.0 - 16.0 Hematocrit 45.0 % 37.0 - 47.0 MCV 92.4 fL 81.0 - 101 MCH 31.8 pg 27.0 - 34.0 MCHC 34.4 g/dL 31.0 - 36.0 RDW 12.9 % 11.5 - 14.5 Platelets 260 10^3/uL 150 - 450 MPV 11.2 fL High 7.4 - 10.4 Comprehensive Metabolic Panel 11/01/2020 [facility] Comprehensive Metabo (SEE NOTE) 18 Sodium 139 mEq/L 134 - 153 Potassium 4.5 mEq/L 3.6 - 5.0 Chloride 105 mEq/L 98 - 107 Co2 25 mEq/L 22 - 30 Glucose 87 mg/dL 70 - 99 BUN 10 mg/dL 7 - 21 Creatinine 0.6 mg/dL Low 0.7 - 1.5 BUN/Creat 17 8 - 27 Total Protein 6.6 g/dL 6.3 - 8.2 Albumin 4.3 g/dL 3.9 - 5.0 Globulin 2.3 GM/DL Low 2.4 - 3.2 A/G Ratio 1.9 0.8 - 2.0 Calcium 8.9 mg/dL 8.4 - 10.2 Total Bili <0.7 mg/dL 0.2 - 1.3 Alkaline Phos 65 U/L 38 - 126 Sgot/Ast 17 U/L 5 - 40 SGPT/Alt 12 U/L 7 - 56 Anion Gap 9.0 mmol/L 8.0 - 16.0 Age 25 yrs Non-Aa GFR >60 mL/min Afr Amer GFR >60 mL/min 19 Laboratory test finding 11/01/2020 [facility] TSH Highly Sensitive 1.86 uIU/mL 0.47 - 5.01 1 Is patient fasting? N 2 COMPREHENSIVE METABOLIC PANE L 3 Male GFR Interprentation 20-49 yrs >60 mL/min Normal 50-59 yrs >56 mL/min Normal 60-69 yrs >49 mL/min Normal 70-79yrs >42 mL/min Normal 80 and above >35 mL/min Normal Female GFR Interpretation 20-39 yrs >60 mL/min Normal 40-49 yrs >58 mL/min Normal 50-59 yrs >51 mL/min Normal 60-69 yrs >45 mL/min Normal 70-79 yrs >39 mL/min Normal 80 and above >32 mL/min Normal 4 COMPLETE BLOOD COUNT 5 {DIAGNOSIS: F41.9 F32.89~{M EDICATIONS/DECLARED: VALARIE~{PRESCRIPTION INFO:~{PRESCRIPTION [...] test is not intended to distinguish between asxys-7-bfdpmcaooibzkmxzjrlv, the predominant form of THC in most herbal or marijuana-based products, and jagbd-4-xdgwovzienoxybtxdzbi. Test Result Flag Units Ref Range Creatinine [...] Little GFR Left ESRD GFR <15 on TRANSFER PUMPER 9 GESTATIONAL AGE APPROXIMATE HCG RANGE (MIU/ML) [...] monitoring the treatment of cancer patients. Siemens [employer] methodology. 10 Is patient fasting? N 11 COMPLETE BLOOD COUNT 12 VITAMIN-D(25HYDROXY) Deficiency: <=20 ng/ml Insufficiency: 21-29 ng/ml Preferred level: => 30 ng/ml 13 Negative <1:80 Borderline 1:80 Positive >1:80 14 COMPREHENSIVE METABOLIC PANE L 15 Male GFR Interprentation 20-49 yrs >60 mL/min Normal 50-59 yrs >56 mL/min Normal 60-69 yrs >49 mL/min Normal 70-79yrs >42 mL/min Normal 80 and above >35 mL/min Normal Female GFR Interpretation 20-39 yrs >60 mL/min Normal 40-49 yrs >58 mL/min Normal 50-59 yrs >51 mL/min Normal 60-69 yrs >45 mL/min Normal 70-79 yrs >39 mL/min Normal 80 and above >32 mL/min Normal 16 QUANTITATIVE RESULT QUALITATIVE INTERPRETATION <5.0 IU/L NEGATIVE 5.0 - 25.0 IU/L INDETER MINATE >25.0 IU/L POSITIVE 17 COMPLETE BLOOD COUNT 18 COMPREHENSIVE METABOLIC PANE L 19 Male GFR Interprentation 20-49 yrs >60 mL/min Normal 50-59 yrs >56 mL/min Normal 60-69 yrs >49 mL/min Normal 70-79yrs >42 mL/min Normal 80 and above >35 mL/min Normal Female GFR Interpretation 20-39 yrs >60 mL/min Normal 40-49 yrs >58 mL/min Normal 50-59 yrs >51 mL/min Normal 60-69 yrs >45 mL/min Normal 70-79 yrs >39 mL/min Normal 80 and above >32 mL/min Normal Procedures Date Code Description Status 04/02/2021 57626 Office/Outpatient Established Lo w MDM 20-29 Min Completed 02/14/2021 46695 Preventive Counseling Indiv 45 M in Completed 01/13/2021 03311 Psychiatric Diagnostic Evaluatio n Completed 11/19/2020 30762 Office/Outpatient Established Lo w MDM 20-29 Min Completed 11/01/2020 95491 Office/Outpatient Established Lo w MDM 20-29 Min Completed 11/01/2020 65447 Admin Patient Focused Health Ris k Assessment Instrument Completed 11/01/2020 23652 Brief Emotional/Beha v Assessment W/ Scoring Doc Per Standard Inst Completed Medical Devices Description No Information Available Encounters Description No Information Available Assessments Date Code Description Provider 04/30/2021 F32.89 Other specified depressive episo serjio Davin Lukasz, [facility] 04/30/2021 F41.9 Anxiety disorder, unspecified Mi eliu Lukasz, [facility] 04/30/2021 Z63.79 Other stressful life events affe cting family and household Davin Mckinney [facility] 04/08/2021 F32.89 Other specified depressive episo serjio Davin Lukasz [facility] 04/08/2021 F41.9 Anxiety disorder, unspecified Mi eliu Mckinney, [facility] 04/08/2021 Z63.79 Other stressful life events affe cting family and household Davin Mckinney, [facility] 04/02/2021 F32.89 Other specified depressive episo serjio Berenice Payne MD 04/02/2021 R63.4 Abnormal weight loss Berenice wilder MD 04/02/2021 H10.9 Unspecified conjunctivitis Berenice Payne MD 03/24/2021 F32.89 Other specified depressive episo serjio Davin Mckinney, [facility] 03/24/2021 F41.9 Anxiety disorder, unspecified Mi eliu Mckinney, [facility] 03/24/2021 Z63.79 Other stressful life events affe cting family and household Davin Mckinney, [facility] 03/14/2021 F32.89 Other specified depressive episo serjio Davin Mckinney, [facility] 03/14/2021 F41.9 Anxiety disorder, unspecified Sri Mckinney, [facility] 03/14/2021 Z63.79 Other stressful life events affe cting family and household Davin Mckinney, [facility] 02/20/2021 F32.89 Other specified depressive episo serjio Davin Mckinney, [facility] 02/20/2021 F41.9 Anxiety disorder, unspecified Sri Mckinney, [facility] 02/20/2021 Z63.79 Other stressful life events affe cting family and household Davin Mckinney, [facility] 02/14/2021 F32.89 Other specified depressive episo serjio Gia Veras RN 02/14/2021 F41.9 Anxiety disorder, unspecified An samaria Veras RN 02/13/2021 F41.9 Anxiety disorder, unspecified Sri Mckinney, [facility] 02/13/2021 F32.89 Other specified depressive episo serjio Davin Mckinney, [facility] 01/13/2021 F41.9 Anxiety disorder, unspecified Sri Mckinney, [facility] 01/13/2021 F32.89 Other specified depressive episo serjio Davin Mckinney, [facility] 12/26/2020 M79.10 Myalgia, unspecified site Berenice trejo MD 12/26/2020 F41.9 Anxiety disorder, unspecified An charu Payne MD 12/26/2020 F32.89 Other specified depressive episo serjio Berenice Payne MD 11/19/2020 F32.89 Other specified depressive episo serjio Berenice Payne MD 11/19/2020 F41.9 Anxiety disorder, unspecified An charu Payne MD 11/01/2020 F32.89 Other specified depressive episo serjio Berenice Payne MD 11/01/2020 F41.9 Anxiety disorder, unspecified An charu Payne MD 11/01/2020 G43.009 Migraine without aur a, not intractable, without status migrainosus Berenice Payne MD Plan of Treatment Future Appointment(s):* 05/20/2021 3:00 pm - MI Mckeon at [facility] * 05/20/2021 1:00 pm - Berenice Payne MD at [facility] * 05/06/2021 12:00 pm - Neal Lamb PA-C at [facility] 04/02/2021 - Berenice Payne MD* F32.89 Other [...] by mouth every day * Neomycin/Polymyxin/Hydrocortisone (Ophthalmic) 3.5-84464-9 - 3-4 drops to left eye 4 times a day while awake * Follow up:* 1 month * Recommendations:* Encouraged her to quit smoking JUDIT. Functional Status Description No Information Available Mental Status Description No Information Available Referrals Refer to Reason for Referral Status Appt Date [facility] Recurrent syncope. ? seizure Sent [phone] [place] [address] [phone] [facility] 25 year old female with r ecent tonic-clonic seizure and admission to [facility]. Patient is 4 weeks . Please evaluate and treat. Thank you. Closed 01/13/[address] [place] [address] [phone] [facility] 25-year-old female with incr easing anxiety and depression symptoms. She scored 21 on JUAN LUIS-7 scale and 22 on PHQ9 scale. Please evaluate and treat. Thank you. Closed 01/13/[address] [place] [address] [phone]
--- OUTSIDE RECORDS SUMMARY | 2021-06-25 10:56 | CCD | Continuity of Care Document ---
Author Author Milagros EM Organization Unknown Address [address] [place] [address] Phone [phone] Care Team Providers Care Clinical Lab Technologist Name Role Phone Berenice Payne M.D. AUTM [phone] Problems Active Problems Provider Date Generalized-onset seizures Alma Rosa Chaney M.D. Onset: 12/22 Depressive disorder Onset: 11/01/2020 [...] Tablets Take 1 tab PO bid. 60taluna Chaney M.D. 02/04/2021 Albuterol Sulfate HFA 108(90Base) mcg/Act [...] lb BMI (Body Mass Index) 24.9 kg/m2 [place] Body Weight 130 lb 01/13/2021 12:59pm Respiratory Rate 12 /min Height 66 inches 5'6" Weight 154.00 lb BMI (Body Mass Index) 24.9 kg/m2 [place] Body Weight 130 lb Results Test Acquired [...] Little GFR Left ESRD GFR <15 on DUST COLLECTOR ATTENDANT 3 GESTATIONAL AGE APPROXIMATE HCG RANGE (MIU/ML) [...] monitoring the treatment of cancer patients. Siemens noodls methodology. 4 Is patient fasting? N 5 [...] ng/ml Procedures Date Code Description Status 04/16/2021 95818 Office/Outpatient Established Hi gh MDM 40-54 Min Completed 02/18/2021 13993 EEG Complete STD Phys/QHP>60 HR< 84 HR W/O Video Completed 02/18/2021 49695 EEG Complete STD Phys/QHP>36 HR< 60 HR W/O Video Completed 01/13/2021 49816 Office/Outpatient Established Hi gh MDM 40-54 Min Completed 01/06/2021 84778 Hospital Initial Care Level 3 Co mpleted Medical Devices Description No Information Available Encounters Type Date Location Provider Dx Diagnosis Office Visit 04/16/2021 1:30p Main office - [place] Alma Rosa cervantes M.D. G40.309 Gen idiopathic epilepsy, not intractable , w/o stat epi Office Visit 01/13/2021 12:00p Main office - [place] Alma Rosa cervantes M.D. 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 01/06/2021 O99.351 Diseases of the nerv ous system complicating , first trimester Alma Rosa Chaney M.D. 01/06/2021 Z3A.01 Less than 8 weeks gestation of shyla arroyo Alma Rosa Chaney M.D. Plan of Treatment Future Appointment(s):* 2021 2:00 pm - Alma Rosa Chaney M.D. at Main office [facility] Functional Status Description No Information Available Mental Status Description No Information Available Referrals Refer to Reason for Referral Status Appt Jose aT M.D. VIDEO EEG MONITORING FOR PNES Created [facility] Department Of Neurology [address] [place] [address] [phone]
--- OUTSIDE RECORDS SUMMARY | 2021-06-25 10:56 | CCD | Continuity of Care Document ---
Author Author Milagros PAYNE MD Organization Unknown Address [address] [place] [address] Phone [phone] Care Team Providers Care Public Works Manager Name Role Phone Berenice Payne MD AUTM [phone] [facility] Behavioral Health AUTM [phone] [facility] AUTM Problems Active Problems Provider Date Tobacco user [...] KATERINA Allergies, Adverse Reactions, Alerts Active Allergies Reaction Severity Comments Date NKDA 07/20/2016 NKFA 07/20/2016 NKEA 07/20/2016 Medications Active Medications SIG Qnty Indications Ordering Provide r Date Venlafaxine HCL 37.5mg Tablets 1 by mouth every day 30tabs Berenice Payne MD 04/02/2021 Neomycin/Polymyxin/Hydrocortisone (Ophth almic) 3.5-04829-8 Suspension 3-4 drops to left eye 4 times a day while awake 7.500ml Berenice Payne MD 04/02/2021 Albuterol Sulfate HFA 108(90Base) mcg/Act Aerosol inhale 2 puff by mouth every 4 hours as needed 17gm Berenice Payne MD 11/20/2020 [facility] Carpal Tunnel Syndrome Bra ce/Left/Regular Misc wear daily for carpal tunnel 1units Luis Borges MD 05/17/2020 [facility] [employer] [facility] Carpal Tunnel Syndrome Bra ce/Right/Regular Misc wear daily for carpal tunnel 1units Luis Borges MD 05/17/2020 History Medications Citalopram Hydrobromide 20mg Table ts Half tablet by mouth daily for a week and increase to one daily if tolerated. 90tabs Berenice Payne MD 11/01/2020 - 12/26/2020 Immunizations CPT Code Status Date Vaccine Lot # [id number] Given 01/12/2017 Tdap (Boostrix/Ad[place]el[place] [id number] Given 2016 Influenza (>35 months) P.F. Vaccine [...] H/L Range Note Comprehensive Metabolic Panel 04/02/2021 [facility] Comprehensive Metabo (SEE NOTE) 1, 2 Sodium [...] >60 mL/min 3 Laboratory test finding 04/02/2021 [facility] TSH Highly Sensitive 0.88 uIU/mL 0.47 - 5.01 Vitamin B12 Serum 446 pg/mL 232 - 1245 CBC No Diff 04/02/2021 [facility] CBC No Diff (SEE NOTE) 4 WBC [...] 10.4 Medwatch Toxassure Select 13 02/14/2021 Salome Ramirez [...] Normal Negative 7 Complete Blood Count 01/05/2021 [facility] White Blood Count 14.4 10 High [...] % Normal 0-0 Comprehensive Metabolic Profil 01/05/2021 [facility] Glucose, Fasting 100 mg/dL Normal 70-100 [...] 1.0 Low 1.2-2.2 Laboratory test finding 01/05/2021 [facility] HCG Serum Qualitative POSITIVE Abnormal Negative HCG, Serum Quantitative 142 MIU/ML Normal 9 CBC No Diff 12/26/2020 [facility] CBC No Diff (SEE NOTE) [...] 7.4 - 10.4 Laboratory test finding 12/26/2020 [facility] CPK 221 U/L High 30 - 170 Vitamin B12 Serum 329 pg/mL 232 - 1245 Folic Acid Serum(Folate) 7.7 NG/ML 5.0 - 27.2 Vitamin D (25-Hydroxy) 21 NG/ML 12 Magnesium Serum 1.8 mg/dL 1.7 - 2.2 Sedimentation Rate 12/26/2020 [facility] Sed Rate 1 mm/hr 0 - 20 Sed Rate Reenter 1 Laboratory test finding 12/26/2020 [facility] TSH Highly Sensitive 1.56 uIU/mL 0.47 - 5.01 Sujatha Ifa Negative 13 Ra Quant <10 IU/mL 0 - 14 Comprehensive Metabolic Panel 12/26/2020 [facility] Comprehensive Metabo (SEE NOTE) 14 Sodium 138 [...] >60 mL/min 15 Laboratory test finding 11/13/2020 [facility]-hCG < 5.0 Normal 16 CBC No Diff 11/01/2020 [facility] CBC No Diff (SEE NOTE) 17 WBC [...] 7.4 - 10.4 Comprehensive Metabolic Panel 11/01/2020 [facility] Comprehensive Metabo (SEE NOTE) 18 Sodium 139 [...] >60 mL/min 19 Laboratory test finding 11/01/2020 [facility] TSH Highly Sensitive 1.86 uIU/mL 0.47 [...] test is not intended to distinguish between wgxwj-0-aoavgzlhxioavkokhbrw, the predominant form of THC in most herbal or marijuana-based products, and zsqki-4-rirayfmecvbyizpnvwba. Test Result Flag Units Ref Range Creatinine [...] Little GFR Left ESRD GFR <15 on CLINICAL DENTAL TECHNICIAN 9 GESTATIONAL AGE APPROXIMATE HCG RANGE (MIU/ML) [...] or monitoring the treatment of cancer patients. Osper methodology. 10 Is patient fasting? N 11 [...] Normal Procedures Date Code Description Status 04/02/2021 41620 Office/Outpatient Established Lo w MDM 20-29 Min Completed 02/14/2021 68751 Preventive Counseling Indiv 45 M in Completed 01/13/2021 36302 Psychiatric Diagnostic Evaluatio n Completed 11/19/2020 46796 Office/Outpatient Established Lo w MDM 20-29 Min Completed 11/01/2020 39881 Office/Outpatient Established Lo w MDM 20-29 Min Completed 11/01/2020 15883 Admin Patient Focused Health Ris k Assessment Instrument Completed 11/01/2020 56106 Brief Emotional/Beha v Assessment W/ Scoring Doc Per Standard Inst Completed Medical Devices Description No Information Available Encounters Type Date Location Provider Dx Diagnosis Office Visit 04/02/2021 1:00p [facility] Practice Berenice Payne MD F32.89 Other specified depressive episodes R63.4 Abnormal weight loss H10.9 Unspecified conjunctivitis Assessments Date Code Description Provider 04/02/2021 F32.89 Other specified depressive episo serjio Berenice Payne MD 04/02/2021 R63.4 Abnormal weight loss Berenice wilder MD 04/02/2021 H10.9 Unspecified conjunctivitis Berenice Payne MD 03/24/2021 F32.89 Other specified depressive episo serjio Davin Lal [facility] 03/24/2021 F41.9 Anxiety disorder, unspecified Mi eliu Lal [facility] 03/24/2021 Z63.79 Other stressful life events affe cting family and household Davin Lal [facility] 03/14/2021 F32.89 Other specified depressive episo serjio Davin Lal, [facility] 03/14/2021 F41.9 Anxiety disorder, unspecified Sri Lal, [facility] 03/14/2021 Z63.79 Other stressful life events affe cting family and household Davin Lal, [facility] 02/20/2021 F32.89 Other specified depressive episo serjio Davin Lal, [facility] 02/20/2021 F41.9 Anxiety disorder, unspecified Sri Lal, [facility] 02/20/2021 Z63.79 Other stressful life events affe cting family and household Davin Lal, [facility] 02/14/2021 F32.89 Other specified depressive episo serjio Gia Veras, RN 02/14/2021 F41.9 Anxiety disorder, unspecified An samaria Veras RN 02/13/2021 F41.9 Anxiety disorder, unspecified Sri Lal, [facility] 02/13/2021 F32.89 Other specified depressive episo serjio Davin Lal, [facility] 01/13/2021 F41.9 Anxiety disorder, unspecified Sri Lal, [facility] 01/13/2021 F32.89 Other specified depressive episo serjio Davin Lal, [facility] 12/26/2020 M79.10 Myalgia, unspecified site Berenice trejo [...] MD Plan of Treatment Future Appointment(s):* 05/20/2021 1:00 pm - Berenice [facility] at [facility] * 04/08/2021 1:00 pm - MI Mckeon at [facility] * 05/06/2021 12:00 pm - Neal Lamb PA-C at [facility] 04/02/2021 - Berenice Payne MD* F32.89 [...] by mouth every day * Neomycin/Polymyxin/Hydrocortisone (Ophthalmic) 3.5-12102-4 - 3-4 drops to left eye 4 times a day while awake * Follow up:* 1 month * Recommendations:* Encouraged her to quit smoking JUDIT. Functional Status Description No Information Available Mental Status Description No Information Available Referrals Refer to Reason for Referral Status Appt Date [facility] 25 year old female with r ecent tonic-clonic seizure and admission to [facility]. Patient is 4 weeks . Please evaluate and treat. Thank you. Patient Notified 01/13/2021 [address] [place] [address] [phone] [facility] 25-year-old female with incr easing anxiety and depression symptoms. She scored 21 on JUAN LUIS-7 scale and 22 on PHQ9 scale. Please evaluate and treat. Thank you. Closed 01/13/[address] [place] [id number] [phone]
--- OUTSIDE RECORDS SUMMARY | 2021-06-25 10:56 | CCD | Continuity of Care Document ---
Author Author Milagros EM Organization Unknown Address [address] [place] [address] Phone [phone] Care Team Providers Care Commercial Finance Analyst Name Role Phone Berenice Payne M.D. AUTM [phone] Problems Active Problems Provider Date Generalized-onset seizures [...] lb BMI (Body Mass Index) 24.9 kg/m2 [place] Body Weight 130 lb 01/13/2021 12:59pm Respiratory Rate 12 /min Height 66 inches 5'6" Weight 154.00 lb BMI (Body Mass Index) 24.9 kg/m2 [place] Body Weight 130 lb Results Test Acquired [...] Little GFR Left ESRD GFR <15 on PCU RN 3 GESTATIONAL AGE APPROXIMATE HCG RANGE (MIU/ML) [...] monitoring the treatment of cancer patients. Siemens [email or web address] methodology. 4 Is patient fasting? N 5 [...] 30 ng/ml Procedures Date Code Description Status 04/26/2021 96162 MRI Brain W/O Contrast Completed 04/26/2021 50587 MRI Brain W/O Contrast Completed 04/16/2021 43320 Office/Outpatient Established Hi gh MDM 40-54 Min Completed 02/18/2021 41211 EEG Complete STD Phys/QHP>60 HR< 84 HR W/O Video Completed 02/18/2021 44999 EEG Complete STD Phys/QHP>36 HR< 60 HR W/O Video Completed 01/13/2021 16815 Office/Outpatient Established Hi gh MDM 40-54 Min Completed 01/06/2021 99448 [facility] Initial Care Level 3 Co mpleted Medical Devices Description No Information Available Encounters Type Date Location Provider Dx Diagnosis Office Visit 04/16/2021 1:30p Main office - Harshawsamaria cervantes M.D. G40.309 Gen idiopathic epilepsy, not intractable , w/o stat epi Office Visit 01/13/2021 12:00p Main office - Harshawsamaria cervantes M.D. 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 Plan of Treatment Future Appointment(s):* 2021 2:00 pm - Alma Rosa Chaney M.D. at Main office - [place] Functional Status Description No Information Available Mental Status Description No Information Available Referrals Refer to Dr Reason for Referral Status Appt Jose Ta M.D. VIDEO EEG MONITORING FOR PNES Created [facility] Department Of Neurology [address] [place] [address] [phone] Alma Rosa Chaney M.D. Created 0 [address] [place] [address] [phone]
--- OUTSIDE RECORDS SUMMARY | 2021-06-25 10:56 | CCD | Continuity of Care Document ---
Author Author Milagros LAMB PA-C Organization Unknown Address [facility] Behavioral Health [address] [place] [address] Phone [phone] Care Team Providers Care Travel Med Surg Rn Name Role Phone Berenice Payne MD AUTM [phone] [facility] AUTM [phone] [facility] AUTM [phone] [facility] AUTM [phone] Problems Active Problems Provider Date Tobacco user [...] MD 04/02/2021 - 05/06/2021 Neomycin/Polymyxin/Hydrocortisone (Ophth almic) 3.5-77162-1 Suspension 3-4 drops to left eye 4 times a day while awake 7.500ml Berenice Payne MD 04/02/2021 - 04/03 Immunizations CPT Code Status Date Vaccine Lot # [id number] Given 01/12/2017 Tdap (Boostrix/Adac[place]) [place] [id number] Given 2016 Influenza (>35 months) P.F. Vaccine [...] H/L Range Note CBC No Diff 04/02/2021 [facility] CBC No Diff (SEE NOTE) 1, [...] 7.4 - 10.4 Comprehensive Metabolic Panel 04/02/2021 [facility] Comprehensive Metabo (SEE NOTE) [...] Normal Negative 7 Complete Blood Count 01/05/2021 [facility] White Blood Count 14.4 10 High 4.0-10.0 [...] % Normal 0-0 Comprehensive Metabolic Profil 01/05/2021 [facility] Glucose, Fasting 100 mg/dL Normal 70-100 Blood [...] 1.0 Low 1.2-2.2 Laboratory test finding 01/05/2021 [facility] HCG Serum Qualitative POSITIVE Abnormal Negative HCG, Serum Quantitative 142 MIU/ML Normal 9 CBC No Diff 12/26/2020 [facility] CBC No Diff (SEE NOTE) 10, [...] 7.4 - 10.4 Comprehensive Metabolic Panel 12/26/2020 [facility] Comprehensive Metabo (SEE NOTE) [...] >60 mL/min 13 Laboratory test finding 12/26/2020 [facility] TSH Highly Sensitive 1.56 uIU/mL 0.47 - 5.01 Sujatha Ifa Negative 14 Ra Quant <10 IU/mL 0 - 14 Sedimentation Rate 12/26/2020 [facility] Sed Rate 1 mm/hr 0 - 20 Sed Rate Reenter 1 Laboratory test finding 12/26/2020 [facility] CPK 221 U/L High 30 - 170 Vitamin B12 Serum 329 pg/mL 232 - 1245 Folic Acid Serum(Folate) 7.7 NG/ML 5.0 - 27.2 Vitamin D (25-Hydroxy) 21 NG/ML 15 Magnesium Serum 1.8 mg/dL 1.7 - 2.2 Laboratory test finding 11/13/2020 [facility] B-hCG < 5.0 Normal 16 1 Is [...] test is not intended to distinguish between fahzz-6-qkshpvgcviezxmwdwvih, the predominant form of THC in most herbal or marijuana-based products, and dgxuq-1-ikuzjkrtxyimbupzazlz. Test Result Flag Units Ref Range Creatinine [...] Little GFR Left ESRD GFR <15 on DATA MINER 9 GESTATIONAL AGE APPROXIMATE HCG RANGE (MIU/ML) [...] monitoring the treatment of cancer patients. Siemens [employer] methodology. 10 Is patient fasting? N 11 [...] POSITIVE Procedures Date Code Description Status 05/06/2021 48480 Psychiatric Diag Eval W/Medical Service Completed 04/02/2021 17773 Office/Outpatient Established Lo w MDM 20-29 Min Completed 02/14/2021 58908 Preventive Counseling Indiv 45 M in Completed 01/13/2021 43253 Psychiatric Diagnostic Evaluatio n Completed 11/19/2020 49455 Office/Outpatient Established Lo w MDM 20-29 Min Completed Medical Devices Description No Information Available Encounters Description No Information Available Assessments Date Code Description Provider 05/06/2021 F32.89 Other specified depressive episo serjio Neal Lamb PA-C 05/06/2021 F41.9 Anxiety disorder, unspecified Ca ashley Lamb PA-C 05/06/2021 F12.90 Cannabis use, unspecified, uncom plicated Neal Lamb PA-C 04/30/2021 F32.89 Other specified depressive episo serjio Davin Lal, [facility] 04/30/2021 F41.9 Anxiety disorder, unspecified Sri Lal, [facility] 04/30/2021 Z63.79 Other stressful life events affe cting family and household Davin Luaksz, [facility] 04/08/2021 F32.89 Other specified depressive episo serjio Davin Lal, [facility] 04/08/2021 F41.9 Anxiety disorder, unspecified Sri Lal, [facility] 04/08/2021 Z63.79 Other stressful life events affe cting family and household Davin Lukasz, [facility] 04/02/2021 F32.89 Other specified depressive episo serjio Berenice Payne MD 04/02/2021 R63.4 Abnormal weight loss Berenice wilder MD 04/02/2021 H10.9 Unspecified conjunctivitis Berenice Payne MD 03/24/2021 F32.89 Other specified depressive episo serjio Davin Lal, [facility] 03/24/2021 F41.9 Anxiety disorder, unspecified Mi eliu Lal, [facility] 03/24/2021 Z63.79 Other stressful life events affe cting family and household Davin Lal, [facility] 03/14/2021 F32.89 Other specified depressive episo serjio Davin Lal, [facility] 03/14/2021 F41.9 Anxiety disorder, unspecified Sri Lal, [facility] 03/14/2021 Z63.79 Other stressful life events affe cting family and household Davin Lal, [facility] 02/20/2021 F32.89 Other specified depressive episo serjio Davin Lal, [facility] 02/20/2021 F41.9 Anxiety disorder, unspecified Mi eliu Lal, [facility] 02/20/2021 Z63.79 Other stressful life events affe cting family and household Davin Lal, [facility] 02/14/2021 F32.89 Other specified depressive episo serjio Gia Veras, [facility] 02/14/2021 F41.9 Anxiety disorder, unspecified An samaria Veras, [facility] 02/13/2021 F41.9 Anxiety disorder, unspecified Sri Lal, [facility] 02/13/2021 F32.89 Other specified depressive episo serjio Davin Lal, [facility] 01/13/2021 F41.9 Anxiety disorder, unspecified Mi eliu Lal, [facility] 01/13/2021 F32.89 Other specified depressive episo serjio Davin Lal, [facility] 12/26/2020 M79.10 Myalgia, unspecified site Berenice trejo MD 12/26/2020 F41.9 Anxiety disorder, unspecified An charu Payne MD 12/26/2020 F32.89 Other specified depressive episo serjio Berenice Payne MD 11/19/2020 F32.89 Other specified depressive episo serjio Berenice Payne MD 11/19/2020 F41.9 Anxiety disorder, unspecified An charu Payne MD Plan of Treatment Future Appointment(s):* 06/16/2021 2:00 pm - Neal Lamb PA-C at [facility] * 05/20/2021 3:00 pm - Davin Lal [facility] at [facility] * 05/20/2021 1:00 pm - Berenice Payne MD at [facility] 04/02/2021 - Berenice Payne MD* F32.89 Other [...] by mouth every day * Neomycin/Polymyxin/Hydrocortisone (Ophthalmic) 3.5-53464-8 - 3-4 drops to left eye 4 times a day while awake * Follow up:* 1 month * Recommendations:* Encouraged her to quit smoking JUDIT. Functional Status Description No Information Available Mental Status Description No Information Available Referrals Refer to Reason for Referral Status Appt Date [facility] Recurrent syncope. ? seizure Sent [address] [place] [address] [phone] [facility] 25 year old female with r ecent tonic-clonic seizure and admission to [facility]. Patient is 4 weeks . Please evaluate and treat. Thank you. Closed 01/13/[address] [place] [address] [phone]
--- OUTSIDE RECORDS SUMMARY | 2021-06-25 10:56 | CCD | Continuity of Care Document ---
Author Author Milagros PAYNE MD Organization Unknown Address [address] [place] [address] Phone [phone] Care Team Providers Care Pretzel Twister Name Role Phone Berenice Payne MD AUTM [phone] [facility] AUTM [phone] [facility] AUTM [phone] Problems Active Problems Provider Date Tobacco user [...] Berenice Payne MD 04/02/2021 Neomycin/Polymyxin/Hydrocortisone (Ophth almic) 3.5-77691-6 Suspension 3-4 drops to left eye 4 [...] CPT Code Status Date Vaccine Lot # 23557 Given 01/12/2017 Tdap (Boostrix/Adacel) [place] [id number] Given 2016 Influenza (>35 months) P.F. Vaccine [...] Date Facility Test Result H/L Range Note Laboratory test finding 04/02/2021 [facility] TSH Highly Sensitive <pending> Vitamin B12 Serum <pending> [facility] Toxassure Select 13 02/14/2021 [facility] Summary Report (Summary) FINAL 1, 2 PDF . Drug Eval Toxicology ED Only 01/05/2021 [facility]ek[facility] Gibson Amphetamines Level Urine NEGATIVE Normal Negative Barbiturates Urine NEGATIVE Normal Negative Benzodiazepines Urine NEGATIVE Normal Negative Cannabinoids Urine POSITIVE High Negative Cocaine Metabolite Urine NEGATIVE Normal Negative Methadone Urine NEGATIVE Normal Negative Opiates Urine NEGATIVE Normal Negative Phencyclidine Urine NEGATIVE Normal Negative 3 Complete Blood Count 01/05/2021 [facility] White Blood Count 14.4 10 High [...] % Normal 0-0 Comprehensive Metabolic Profil 01/05/2021 [facility] Glucose, Fasting 100 mg/dL Normal 70-100 Blood Urea Nitrogen 13 mg/dL Normal 7-18 Creatinine For GFR 0.73 mg/dL Normal 0.55-1.30 Glomerular Filtration Rate > 60.0 Normal >60 4 Sodium Level 139 mEq/L Normal 136-145 Potassium [...] 1.0 Low 1.2-2.2 Laboratory test finding 01/05/2021 [facility] HCG Serum Qualitative POSITIVE Abnormal Negative HCG, Serum Quantitative 142 MIU/ML Normal 5 CBC No Diff 12/26/2020 [facility] CBC No Diff (SEE NOTE) 6, 7 WBC 11.7 10^3/uL High 4.2 - 11.0 [...] 7.4 - 10.4 Laboratory test finding 12/26/2020 [facility] CPK 221 U/L High 30 - 170 Vitamin B12 Serum 329 pg/mL 232 - 1245 Folic Acid Serum(Folate) 7.7 NG/ML 5.0 - 27.2 Vitamin D (25-Hydroxy) 21 NG/ML 8 Magnesium Serum 1.8 mg/dL 1.7 - 2.2 Sedimentation Rate 12/26/2020 [facility] Sed Rate 1 mm/hr 0 - 20 Sed Rate Reenter 1 Laboratory test finding 12/26/2020 [facility] TSH Highly Sensitive 1.56 uIU/mL 0.47 - 5.01 Sujatha Ifa Negative 9 Ra Quant <10 IU/mL 0 - 14 Comprehensive Metabolic Panel 12/26/2020 [facility] Comprehensive Metabo (SEE NOTE) 10 Sodium 138 mEq/L 134 - 153 Potassium [...] >60 mL/min Afr Amer GFR >60 mL/min 11 Laboratory test finding 11/13/2020 [facility] B-hCG < 5.0 Normal 12 CBC No Diff 11/01/2020 [facility] CBC No Diff (SEE NOTE) 13 WBC 8.4 10^3/uL 4.2 - 11.0 RBC [...] 7.4 - 10.4 Comprehensive Metabolic Panel 11/01/2020 [facility] Comprehensive Metabo (SEE NOTE) 14 Sodium 139 mEq/L 134 - 153 Potassium [...] GFR >60 mL/min 15 Laboratory test finding 11/01/2020 [facility] TSH Highly Sensitive 1.86 uIU/mL 0.47 - 5.01 1 {DIAGNOSIS: F41.9 F32.89~{M EDICATIONS/DECLARED: KEPPRA~{PRESCRIPTION INFO:~{PRESCRIPTION INFO: 2 TOXASSURE SELECT 13 (MW) Test Result Flag [...] test is not intended to distinguish between asebv-3-aouxhtewsqwsjxbymyek, the predominant form of THC in most herbal or marijuana-based products, and macek-7-mhuaztcmoizgsqrspcyq. Test Result Flag Units Ref Range Creatinine 29 mg/dL >=20 Declared Medications: The flagging and interpretation on this report are based on the following declared medications. Unexpected results may arise from inaccuracies in the declared medications. Note: The testing scope of this panel does not include following reported medications: Levetiracetam (Keppra) For clinical consultation, please call . 3 ALL PRESUMPTIVE POSITIVE FINDINGS ARE UNCONFIRMED THRESHOLD [...] CLOSELY RELATED COMPOUNDS PLEASE CALL THE LAB. 4 Units are mL/min/1.73 m2 Chronic Kidney Disease Staging per NKF: Stage I & II GFR >=60 Normal to Mildly Decreased Stage III GFR 30-59 Moderately Decreased Stage IV GFR 15-29 Severely Decreased Stage V GFR <15 Very Little GFR Left ESRD GFR <15 on [place] 5 GESTATIONAL AGE APPROXIMATE HCG RANGE (MIU/ML) - [...] monitoring the treatment of cancer patients. [email or web address] methodology. 6 Is patient fasting? N 7 COMPLETE BLOOD COUNT 8 VITAMIN-D(25HYDROXY) Deficiency: <=20 ng/ml Insufficiency: 21-29 ng/ml Preferred level: => 30 ng/ml 9 Negative <1:80 Borderline 1:80 Positive >1:80 10 COMPREHENSIVE METABOLIC PANE L 11 Male GFR Interprentation 20-49 yrs >60 mL/min Normal 50-59 yrs >56 mL/min Normal 60-69 yrs >49 mL/min Normal 70-79yrs >42 mL/min Normal 80 and above >35 mL/min Normal Female GFR Interpretation 20-39 yrs >60 mL/min Normal 40-49 yrs >58 mL/min Normal 50-59 yrs >51 mL/min Normal 60-69 yrs >45 mL/min Normal 70-79 yrs >39 mL/min Normal 80 and above >32 mL/min Normal 12 QUANTITATIVE RESULT QUALITATIVE INTERPRETATION <5.0 IU/L NEGATIVE 5.0 - 25.0 IU/L INDETER MINATE >25.0 IU/L POSITIVE 13 COMPLETE BLOOD COUNT 14 COMPREHENSIVE METABOLIC PANE L 15 Male [...] mL/min Normal Procedures Date Code Description Status 02/14/2021 79249 Preventive Counseling Indiv 45 M in Completed 01/13/2021 61977 Psychiatric Diagnostic Evaluatio n Completed 11/19/2020 26576 Office/Outpatient Established Lo w MDM 20-29 Min Completed 11/01/2020 82688 Office/Outpatient Established Lo w MDM 20-29 Min Completed 11/01/2020 54923 Admin Patient Focused Health Ris k Assessment Instrument Completed 11/01/2020 13586 Brief Emotional/Beha v Assessment W/ Scoring Doc Per Standard Inst Completed Medical Devices Description No Information Available Encounters Description No Information Available Assessments Date Code Description Provider 04/02/2021 R63.4 Abnormal weight loss Berenice wilder MD 04/02/2021 F32.89 Other specified depressive episo serjio Berenice Payne MD 03/24/2021 F32.89 Other specified depressive episo serjio Davin Lal, [facility] 03/24/2021 F41.9 Anxiety disorder, unspecified Sri Lal, [facility] 03/24/2021 Z63.79 Other stressful life events affe cting family and household Davin Lla, [facility] 03/14/2021 F32.89 Other specified depressive episo serjio Davin Lal, [facility] 03/14/2021 F41.9 Anxiety disorder, unspecified Sri Lal, [facility] 03/14/2021 Z63.79 Other stressful life events affe cting family and household Davin Lukasz, [facility] 02/20/2021 F32.89 Other specified depressive episo serjio Davin Lal, [facility] 02/20/2021 F41.9 Anxiety disorder, unspecified Sri Lal, [facility] 02/20/2021 Z63.79 Other stressful life events affe cting family and household Davin Lal, [facility] 02/14/2021 F32.89 Other specified depressive episo serjio Gia Veras RN 02/14/2021 F41.9 Anxiety disorder, unspecified An samaria Veras, LAZ 02/13/2021 F41.9 Anxiety disorder, unspecified Sri Lal, [facility] 02/13/2021 F32.89 Other specified depressive episo serjio Davin Lal, [facility] 01/13/2021 F41.9 Anxiety disorder, unspecified Sri Lal, [facility] 01/13/2021 F32.89 Other specified depressive episo serjio Davin Lal, [facility] 12/26/2020 M79.10 Myalgia, unspecified site Berenice [...] 1:00 pm - Berenice Payne MD at [facility] * 04/08/2021 1:00 pm - MI Mckeon at [facility] * 05/06/2021 12:00 pm - Neal Lamb PA-C at [facility] 04/02/2021 - Berenice Payne MD* R63.4 Abnormal weight loss * F32.89 Other specified depressive episodes * All * New Medication:* Venlafaxine HCL 37.5 mg - 1 by mouth every day * Neomycin/Polymyxin/Hydrocortisone (Ophthalmic) 3.5-62860-9 - 3-4 drops to left eye 4 times a day while awake * Follow up:* 1 month Functional Status Description No Information Available Mental Status Description No Information Available Referrals Refer to Reason for Referral Status Appt Date [facility] 25 year old female with r ecent tonic-clonic seizure and admission to [facility]. Patient is 4 weeks . Please evaluate and treat. Thank you. Patient Notified 01/13/2021 [address] [place] [address] [phone] [facility] 25-year-old female with incr easing anxiety and depression symptoms. She scored 21 on JUAN LUIS-7 scale and 22 on PHQ9 scale. Please evaluate and treat. Thank you. Closed 01/13/2021 [address] [place] [address] [phone]
--- OUTSIDE RECORDS SUMMARY | 2021-06-25 10:56 | CCD | Summary of Care ---
Author Author [facility] Organization [facility] Address Unknown Phone Unavailable Care Team Providers Care Dental Receptionist Name Role Phone PCP Unavailable Encounter Details Care Team Description Date Type Department 04/05/2021 [facility] TRANSFER CE NTER Encounter [address] [place] [address] Allergies Not on Filedocumented as of this encounter (statuses as of 04/20/2021) Medications Not on filedocumented as of this encounter (statuses as of 04/20/2021) Active Problems Not on filedocumented as of this encounter (statuses as of 04/20/2021) Social History Date Tobacco Use Types Packs/Day Years Used Never Assessed Sex Assigned at Date Recorded Not on file documented as of this encounter Last Filed Vital Signs Not on filedocumented in this encounter Plan of Treatment Health Maintenance Due Date Last Done Comments MMR Vaccines (1 of - 1995 02/03/2000, Standard series) 12/06/1995 Varicella Vaccines (1 of 1995 10/31/2009, 2 - 2-dose childhood 08/14/1996 series) DTaP,Tdap,and Td Vaccines 2001 01/12/2017, (1 - Tdap) 10/27/2007, 02/03/2000, Additional history exists HPV Vaccines (1 - 2-dose 2005 05/15/2008, series) 01/03/2008, 11/02/2007 HIV Screening 2007 Cervical Cancer Screening 2015 3 years Influenza Vaccine 05/23/2021 Pneumococcal Vaccine: 65+ 2059 Years (1 of 1 - PPSV23) HIB Vaccines Aged Out No longer eligible based on patient's age to complete this topic Hepatitis A Vaccines Aged Out 05/15/2008, No longer eligible based on patient's age to 11/02/2007 complete this topic Hepatitis B Vaccines Aged Out 06/01/1995, No longer eligible based on patient's age to 1994, complete this topic 1994 IPV Vaccines Aged Out 02/03/2000, No longer eligi ble based on patient's age to 04/06/1995, complete this topic 02/26/1995, Additional history exists Pneumococcal Vaccine: Aged Out No longer eligib le based on patient's age to Pediatrics (0 to 5 Years) complete this topic and At-Risk Patients (6 to 64 Years) documented as of this encounter Results Not on filedocumented in this encounter
--- OUTSIDE RECORDS SUMMARY | 2021-06-25 10:57 | CCD ---
Author Author [facility] Organization [facility] Address Unknown Phone Unavailable Care Team Providers Care Charity Fundraiser Name Role Phone NON-STAFF, PHYSICIAN Unavailable Unavailable YURY MCKINNEY Unavailable Unavailable LETTIERE, A KATHERINE PA Unavailable Unavailable LETTIERE, A KATHERINE PA Unavailable Unavailable LETTIERE, A KATHERINE PA Unavailable Unavailable LETTIERE, A KATHERINE PA Unavailable Unavailable LETTIERE, A KATHERINE PA Unavailable Unavailable LETTIERE, A KATHERINE PA Unavailable Unavailable LETTIERE, A KATHERINE PA Unavailable Unavailable LETTIERE, A KATHERINE PA Unavailable Unavailable LETTIERE, A KATHERINE PA Unavailable Unavailable LETTIERE, A KATHERINE PA Unavailable Unavailable LETTIERE, A KATHERINE PA Unavailable Unavailable LETTIERE, A KATHERINE PA Unavailable Unavailable LETTIERE, A KATHERINE PA Unavailable Unavailable LETTIERE, A KATHERINE PA Unavailable Unavailable LETTIERE, A KATHERINE PA Unavailable Unavailable LETTIERE, A KATHERINE PA Unavailable Unavailable LETTIERE, A KATHERINE PA Unavailable Unavailable LETTIERE, A KATHERINE PA Unavailable Unavailable LETTIERE, A KATHERINE PA Unavailable Unavailable LETTIERE, A KATHERINE PA Unavailable Unavailable LETTIERE, A KATHERINE PA Unavailable Unavailable LETTIERE, A KATHERINE PA Unavailable Unavailable LETTIERE, A KATHERINE PA Unavailable Unavailable LETTIERE, A KATHERINE PA Unavailable Unavailable LETTIERE, A KATHERINE PA Unavailable Unavailable LETTIERE, A KATHERINE PA Unavailable Unavailable LETTIERE, A KATHERINE PA Unavailable Unavailable LETTIERE, A KATHERINE PA Unavailable Unavailable LETTIERE, A KATHERINE PA Unavailable Unavailable LETTIERE, A KATHERINE PA Unavailable Unavailable LETTIERE, A KATHERINE PA Unavailable Unavailable Green SLEEVE TURNER SLEEVE TURNER, Lary Unavailable Unavailable Green SLEEVE TURNER SLEEVE TURNER, Lary Unavailable Unavailable Green SLEEVE TURNER SLEEVE TURNER, Lary Unavailable Unavailable Green SLEEVE TURNER SLEEVE TURNER, Lary Unavailable Unavailable Green SLEEVE TURNER SLEEVE TURNER, Lary Unavailable Unavailable Palomo, Bertha Edel PA Unavailable Unavailable Palomo, Bertha Edel PA Unavailable Unavailable Palomo, Bertha Edel PA Unavailable Unavailable Palomo, Bertha Edel PA Unavailable Unavailable Palomo, Bertha Edel PA Unavailable Unavailable Palomo, Bertha Edel PA Unavailable Unavailable Palomo, Bertha Edel PA Unavailable Unavailable Palomo, Bertha Edel PA Unavailable Unavailable Palomo, Bertha Edel PA Unavailable Unavailable Palomo, Bertha Edel PA Unavailable Unavailable Dwello PA PA, Promise Unavailable Unavailable Dwello PA PA, Promise Unavailable Unavailable Dwello PA PA, Promise Unavailable Unavailable Dwello PA PA, Promise Unavailable Unavailable Dwello PA PA, Promise Unavailable Unavailable Dwello PA PA, Promise Unavailable Unavailable Dwello PA PA, Promise Unavailable Unavailable Silvano Hines MD Unavailable Unavailable Silvano Hines MD Unavailable Unavailable Silvano Hines MD Unavailable Unavailable Silvano Hines MD Unavailable Unavailable Silvano Hines MD Unavailable Unavailable Silvano Hines MD Unavailable Unavailable Silvano Hines MD Unavailable Unavailable Silvano Hines MD Unavailable Unavailable Silvano Hines MD Unavailable Unavailable Silvano Hines MD Unavailable Unavailable Silvano Hines MD Unavailable Unavailable Silvano Hines MD Unavailable Unavailable Silvano Hines MD Unavailable Unavailable Silvano Hines MD Unavailable Unavailable Silvano Hines MD Unavailable Unavailable Silvano Hines MD Unavailable Unavailable Silvano Hines MD Unavailable Unavailable Silvano Hines MD Unavailable Unavailable Silvano Hines MD Unavailable Unavailable Silvano Hines MD Unavailable Unavailable Silvano Hines MD Unavailable Unavailable Silvano Hines MD Unavailable Unavailable Silvano Hines MD Unavailable Unavailable Silvano Hines MD Unavailable Unavailable Silvano Hines MD Unavailable Unavailable Silvano Hines MD Unavailable Unavailable Silvano Hines MD Unavailable Unavailable Silvano Hines MD Unavailable Unavailable Silvano Hines MD Unavailable Unavailable Donny, A Elvira GANDHI Unavailable Unavailable Donny, Silvano Felix MD Unavailable Unavailable Donny, Silvano Felix MD Unavailable Unavailable Donny, A Elvira GANDHI Unavailable Unavailable Donny, A Elvira GANDHI Unavailable Unavailable Donny, A Elvira GANDHI Unavailable Unavailable Donny, A Elvira GANDHI Unavailable Unavailable Donny, A Elvira GANDHI Unavailable Unavailable Donny, Silvano Felix MD Unavailable Unavailable Donny, Silvano Felix MD Unavailable Unavailable Donny, A Elvira GANDHI Unavailable Unavailable Donny, A Elvira GANDHI Unavailable Unavailable Donny, A Elvira GANDHI Unavailable Unavailable Donny, A Elvira GANDHI Unavailable Unavailable Donny, A Elvira GANDHI Unavailable Unavailable Donny, A Elvira GANDHI Unavailable Unavailable Donny, A Elvira GANDHI Unavailable Unavailable Donny, A Elvira GANDHI Unavailable Unavailable Donny, A Elvira GANDHI Unavailable Unavailable Donny, A Elvira GANDHI Unavailable Unavailable Donny, A Elvira GANDHI Unavailable Unavailable Donny, A Elvira GANDHI Unavailable Unavailable Donny, A Elvira GANDHI Unavailable Unavailable Donny, A Elvira GANDHI Unavailable Unavailable Donny, A Elvira GANDHI Unavailable Unavailable Donny, A Elvira GANDHI Unavailable Unavailable Donny, A Elvira GANDHI Unavailable Unavailable Donny, A Elvira GANDHI Unavailable Unavailable Donny, A Elvira GANDHI Unavailable Unavailable Donny, A Elvira GANDHI Unavailable Unavailable Donny, A Elvira GANDHI Unavailable Unavailable Donny, Silvano Felix MD Unavailable Unavailable Dnony, Silvano Felix MD Unavailable Unavailable Donny, A Elvira GANDHI Unavailable Unavailable Donny, A Elvira GANDHI Unavailable Unavailable Donny, A Elvira GANDHI Unavailable Unavailable Donny, A Elvira GANDHI Unavailable Unavailable Donny, A Elvira GANDHI Unavailable Unavailable Donny, A Elvira GANDHI Unavailable Unavailable Donny, Silvano Felix MD Unavailable Unavailable Donny, Silvano Felix MD Unavailable Unavailable Donny, Silvano Felix MD Unavailable Unavailable Donny, Silvano Felix MD Unavailable Unavailable Donny, Silvano Felix MD Unavailable Unavailable Donny, Silvano Felix MD Unavailable Unavailable Donny, Silvano Felix MD Unavailable Unavailable Donny, Silvano Felix MD Unavailable Unavailable Donny, Silvano Felix MD Unavailable Unavailable Donny, Silvano Felix MD Unavailable Unavailable Donny, Silvano Felix MD Unavailable Unavailable Donny, Silvano Felix MD Unavailable Unavailable Donny, A Elvira GANDHI Unavailable Unavailable Donny, Silvano Felix MD Unavailable Unavailable CAMACHO, J ANGY PA Unavailable Unavailable CAMACHO, J ANGY PA Unavailable Unavailable CAMACHO, J ANGY PA Unavailable Unavailable CAMACHO, J ANGY PA Unavailable Unavailable CAMACHO, J ANGY PA Unavailable Unavailable CAMACHO, J ANGY PA Unavailable Unavailable CAMACHO, J ANGY PA Unavailable Unavailable CAMACHO, J ANGY PA Unavailable Unavailable CAMACHO, J ANGY PA Unavailable Unavailable CAMACHO, J ANGY PA Unavailable Unavailable CAMACHO, J ANGY PA Unavailable Unavailable CAMACHO, J ANGY PA Unavailable Unavailable CAMACHO, J ANGY PA Unavailable Unavailable CAMACHO, J ANGY PA Unavailable Unavailable CAMACHO, J ANGY PA Unavailable Unavailable CAMACHO, J ANGY PA Unavailable Unavailable CAMACHO, J ANGY PA Unavailable Unavailable CAMACHO, J ANGY PA Unavailable Unavailable CAMACHO, J ANGY PA Unavailable Unavailable CAMACHO, J ANGY PA Unavailable Unavailable CAMACHO, J ANGY PA Unavailable Unavailable CAMACHO, J ANGY PA Unavailable Unavailable CAMACHO, J ANGY PA Unavailable Unavailable CAMACHO, J ANGY PA Unavailable Unavailable CAMACHO, J ANGY PA Unavailable Unavailable CAMACHO, J ANGY PA Unavailable Unavailable CAMACHO, J ANGY PA Unavailable Unavailable Kunnumpurath, F Berenice MD Unavailable Unavailable [place], F Berenice MD Unavailable Unavailable [place], F Berenice MD Unavailable Unavailable Kunn[place]ath, F Berenice MD Unavailable Unavailable [place]ath, F Berenice MD Unavailable Unavailable [place]ath, F Berenice MD Unavailable Unavailable [place]ath, F Berenice MD Unavailable Unavailable Kunn[place]ath, F Berenice MD Unavailable Unavailable Kunn[place]ath, F Berenice MD Unavailable Unavailable Kunn[place]urath, F Berenice MD Unavailable Unavailable [place]ath, F Berenice MD Unavailable Unavailable Kunn[place]urath, F Berenice MD Unavailable Unavailable Kunn[place]ath, F Berenice MD Unavailable Unavailable [place]ath, F Berenice MD Unavailable Unavailable K[place]ath, F Berenice MD Unavailable Unavailable [place]ath, F Berenice MD Unavailable Unavailable [place], F Berenice MD Unavailable Unavailable [place], F Berenice MD Unavailable Unavailable [place], F Berenice MD Unavailable Unavailable [place], F Berencie MD Unavailable Unavailable [place], F Berenice MD Unavailable Unavailable [place], F Berenice MD Unavailable Unavailable [place]ath, F Berenice MD Unavailable Unavailable Kunn[place]ath, F Berenice MD Unavailable Unavailable Kunn[place]ath, F Berenice MD Unavailable Unavailable Kunn[place]ath, F Berenice MD Unavailable Unavailable Kunn[place]urath, F Berenice MD Unavailable Unavailable Kunn[place]urath, F Berenice MD Unavailable Unavailable Kunnumpurath, F Berenice MD Unavailable Unavailable Kunnumpurath, F Berenice MD Unavailable Unavailable Kunnumpurath, F Berenice MD Unavailable Unavailable Kunnumpurath, F Berenice MD Unavailable Unavailable Kunnumpurath, F Berenice MD Unavailable Unavailable Kunnumpurath, F Berenice MD Unavailable Unavailable Kunn[place]urath, F Berenice MD Unavailable Unavailable Kunnumpurath, F Berenice MD Unavailable Unavailable Kunnumpurath, F Berenice MD Unavailable Unavailable Kunn[place]urath, F Berenice MD Unavailable Unavailable K[place]urath, F Berenice MD Unavailable Unavailable [place]ath, F Berenice MD Unavailable Unavailable [place], F Berenice MD Unavailable Unavailable [place], F Berenice MD Unavailable Unavailable [place], F Berenice MD Unavailable Unavailable [place]urath, F Berenice MD Unavailable Unavailable [place]ath, F Berenice MD Unavailable Unavailable [place]unn[place]ath, F Berenice MD Unavailable Unavailable Gloria Chaney MD Unavailable Unavailable Gloria Chaney MD Unavailable Unavailable Gloria Chaney MD Unavailable Unavailable Gloria Chaney MD Unavailable Unavailable Gloria Chaney MD Unavailable Unavailable Gloria Chaney MD Unavailable Unavailable Gloria Chaney MD Unavailable Unavailable Gloria Chaney MD Unavailable Unavailable Gloria Chaney MD Unavailable Unavailable Gloria Chaney MD Unavailable Unavailable Gloria Chaney MD Unavailable Unavailable Gloria Chaney MD Unavailable Unavailable Gloria Chaney MD Unavailable Unavailable Gloria Chaney MD Unavailable Unavailable Gloria Chaney MD Unavailable Unavailable Gloria Chaney MD Unavailable Unavailable Gloria Chaney MD Unavailable Unavailable Gloria Chanye MD Unavailable Unavailable Gloria Chaney MD Unavailable Unavailable Gloria Chaney MD Unavailable Unavailable Gloria Chaney MD Unavailable Unavailable Gloria Chaney MD Unavailable Unavailable Gloria Chaney MD Unavailable Unavailable Gloria Chaney MD Unavailable Unavailable Gloria Chaney MD Unavailable Unavailable Gloria Chaney MD Unavailable Unavailable Gloria Chaney MD Unavailable Unavailable Gloria Chaney MD Unavailable Unavailable Gloria Chaney MD Unavailable Unavailable Gloria Chaney MD Unavailable Unavailable Gloria Chaney MD Unavailable Unavailable Gloria Chaney MD Unavailable Unavailable Gloria Chaney MD Unavailable Unavailable Gloria Chaney MD Unavailable Unavailable Gloria Chaney MD Unavailable Unavailable Gloria Chaney MD Unavailable Unavailable Gloria Chaney MD Unavailable Unavailable Gloria Chaney MD Unavailable Unavailable Gloria Chaney MD Unavailable Unavailable Gloria Chaney MD Unavailable Unavailable Gloria Chaney MD Unavailable Unavailable Gloria Chaney MD Unavailable Unavailable Gloria Chaney MD Unavailable Unavailable Gloria Chaney MD Unavailable Unavailable Gloria Chaney MD Unavailable Unavailable Gloria Chaney MD Unavailable Unavailable Gloria hCaney MD Unavailable Unavailable Gloria Chaney MD Unavailable Unavailable Gloria Chaney MD Unavailable Unavailable Gloria Chaney MD Unavailable Unavailable Gloria Chaney MD Unavailable Unavailable Gloria Chaney MD Unavailable Unavailable Gloria Chaney MD Unavailable Unavailable Gloria Chaney MD Unavailable Unavailable Gloria Chaney MD Unavailable Unavailable Gloria Chaney MD Unavailable Unavailable Gloria Chaney MD Unavailable Unavailable Gloria Chaney MD Unavailable Unavailable Gloria Chaney MD Unavailable Unavailable Gloria Chaney MD Unavailable Unavailable Gloria Chaney MD Unavailable Unavailable Gloria Chaney MD Unavailable Unavailable Gloria Chaney MD Unavailable Unavailable Gloria Chaney MD Unavailable Unavailable Gloria Chaney MD Unavailable Unavailable Gloria Chaney MD Unavailable Unavailable Gloria Chaney MD Unavailable Unavailable Gloria Chaney MD Unavailable Unavailable Gloria Chaney MD Unavailable Unavailable Gloria Chaney MD Unavailable Unavailable Gloria Chaney MD Unavailable Unavailable Gloria Chaney MD Unavailable Unavailable Gloria Chaney MD Unavailable Unavailable Gloria Chaney MD Unavailable Unavailable Gloria Chaney MD Unavailable Unavailable Gloria Chaney MD Unavailable Unavailable Gloria Chaney MD Unavailable Unavailable Gloria Chaney MD Unavailable Unavailable Gloria Chaney MD Unavailable Unavailable Carlitos, M Promise SLEEVE TURNER Unavailable Unavailable Carlitos, M Promise SLEEVE TURNER Unavailable Unavailable Carlitos, M Promise SLEEVE TURNER Unavailable Unavailable Carlitos, M Promise SLEEVE TURNER Unavailable Unavailable Carlitos, M Promise SLEEVE TURNER Unavailable Unavailable Carlitos, M Promise SLEEVE TURNER Unavailable Unavailable Carlitos, M Promise SLEEVE TURNER Unavailable Unavailable Carlitos, M Promise SLEEVE TURNER Unavailable Unavailable Carlitos, M Promise SLEEVE TURNER Unavailable Unavailable Carlitos, M Promise SLEEVE TURNER Unavailable Unavailable Carlitos, M Promise SLEEVE TURNER Unavailable Unavailable Carlitos, M Promise SLEEVE TURNER Unavailable Unavailable Carlitos, M Promise SLEEVE TURNER Unavailable Unavailable Kunnumpurath, F Berenice MD Unavailable Unavailable Kunnumpurath, F Berenice MD Unavailable Unavailable [place]unn[place]urath, F Berenice MD Unavailable Unavailable Kunnumpurath, F Berenice MD Unavailable Unavailable Kunnumpurath, F Berenice MD Unavailable Unavailable Kunnumpurath, F Berenice MD Unavailable Unavailable Kunnumpurath, F Berenice MD Unavailable Unavailable Kunnumpurath, F Berenice MD Unavailable Unavailable Kunnumpurath, F Berenice MD Unavailable Unavailable Kunnumpurath, F Berenice MD Unavailable Unavailable Kunnumpurath, F Berenice MD Unavailable Unavailable Kunnumpurath, F Berenice MD Unavailable Unavailable Kunnumpurath, F Berenice MD Unavailable Unavailable Kunnumpurath, F Berenice MD Unavailable Unavailable Kunnumpurath, F Berenice MD Unavailable Unavailable Kunnumpurath, F Berenice MD Unavailable Unavailable Kunnumpurath, F Berenice MD Unavailable Unavailable Kunnumpurath, F Berenice MD Unavailable Unavailable Kunnumpurath, F Berenice MD Unavailable Unavailable Kunnumpurath, F Berenice MD Unavailable Unavailable Kunnumpurath, F Berenice MD Unavailable Unavailable Kunn[place]urath, F Berenice MD Unavailable Unavailable Kunnumpurath, F Berenice MD Unavailable Unavailable Kunn[place]ath, F Berenice MD Unavailable Unavailable Kunn[place]urath, F Berenice MD Unavailable Unavailable Kunnumpurath, F Berenice MD Unavailable Unavailable Kunnumpurath, F Berenice MD Unavailable Unavailable Kunnumpurath, F Berenice MD Unavailable Unavailable Kunnumpurath, F Berenice MD Unavailable Unavailable Kunnumpurath, F Berenice MD Unavailable Unavailable Kunnumpurath, F Berenice MD Unavailable Unavailable Kunnumpurath, F Berenice MD Unavailable Unavailable Kunnumpurath, F Berenice MD Unavailable Unavailable Kunnumpurath, F Berenice MD Unavailable Unavailable Kunnumpurath, F Berenice MD Unavailable Unavailable Kunnumpurath, F Berenice MD Unavailable Unavailable Kunnumpurath, F Berenice MD Unavailable Unavailable Kunnumpurath, F Berenice MD Unavailable Unavailable Kunnumpurath, F Berenice MD Unavailable Unavailable Kunnumpurath, F Berenice MD Unavailable Unavailable Kunnumpurath, F Berenice MD Unavailable Unavailable Kunnumpurath, F Berenice MD Unavailable Unavailable Kunn[place]urath, F Berenice MD Unavailable Unavailable Kunn[place]ath, F Berenice MD Unavailable Unavailable Kunn[place]urath, F Berenice MD Unavailable Unavailable Kunnumpurath, F Berenice MD Unavailable Unavailable Re-disclosure Warning The records that you are about to access may contain information from federally-assisted alcohol or drug abuse programs. If such information is present, then the following federally mandated warning applies: This information has been disclosed to you from records protected by federal confidentiality rules (42 CFR part 2). The federal rules prohibit you from making any further disclosure of this information unless further disclosure is expressly permitted by the written consent of the person to whom it pertains or as otherwise permitted by 42 CFR part 2. A general authorization for the release of medical or other information is NOT sufficient for this purpose. The Federal rules restrict any use of the information to criminally investigate or prosecute any alcohol or drug abuse patient.The records that you are about to access may contain highly sensitive health information, the redisclosure of which is protected by Article 27-F of the [facility] Public Health law. If you continue you may have access to information: Regarding HIV / AIDS; Provided by facilities licensed or operated by the [facility] Office of Mental Health; or Provided by the [facility] Office for People With Developmental Disabilities. If such information is present, then the following [facility] mandated warning applies: This information has been disclosed to you from confidential records which are protected by state law. State law prohibits you from making any further disclosure of this information without the specific written consent of the person to whom it pertains, or as otherwise permitted by law. Any unauthorized further disclosure in violation of state law may result in a fine or group home sentence or both. A general authorization for the release of medical or other information is NOT sufficient authorization for further disc losure. Allergies and Adverse Reactions Type Description Substance Reaction Status Data Source(s ) No Known Allergies No Known Allergies [facility] Family History Family Member Name Family Member Gender Family Member Status Date o f Status Description Data Source(s) Unknown Male Problem [facility] ([facility]) Unknown Unknown Problem [facility] ([facility] Unknown Unknown Problem [facility] ([facility]) Encounters Encounter Providers Location Date Indications Data Source(s ) Outpatient Attender: Berenice Payne MD Family Practice 0 05/20/2021 01:00:00 PM EDT [facility] ([facility]) Outpatient Attender: Berenice Payne MDConsultant: PHYSIC AMITA NON-STAFF 05/20/2021 12:46:00 PM EDT - 05/20/2021 12:46:00 PM EDT [facility] Outpatient Attender: ANGY CAMACHO PAConsultant: PHYSICIAN NON-STAFF 05/06/2021 11:49:00 AM EDT - 05/06/2021 11:49:00 AM EDT [facility] Outpatient Attender: YURY Spearsltant: PHYSICIAN NON -STAFF 04/30/2021 01:56:00 PM EDT - 04/30/2021 01:56:00 PM EDT [facility] Outpatient Attender: Alma Rosa Chaney MD Main office - [facility] 04/16/2021 01:30:00 PM EDT [facility] ([facility]) Outpatient Attender: YURY Eisenbergsultant: PHYSICIAN NON -STAFF 04/08/2021 12:54:00 PM EDT - 04/08/2021 12:54:00 PM EDT [facility] Outpatient Referrer: Promise Urbina NP 04/05/2021 11:43:00 PM EDT [facility] Outpatient Attender: Berenice Payne MD Family Practice 0 04/02/2021 01:00:00 PM EDT [facility] ([facility]) Outpatient Attender: Berenice Payne MDConsultant: PHYSIC AMITA NON-STAFF 04/02/2021 12:51:00 PM EDT - 04/02/2021 12:51:00 PM EDT [facility] Outpatient Attender: YURY MCKINNEYConsultant: PHYSICIAN NON -STAFF 03/24/2021 09:55:00 AM EDT - 03/24/2021 09:55:00 AM EDT [facility] Attender: Lary Hyde NP SLEEVE TURNER PPNCANA [place] 0 03/24/2021 08:41:00 AM EDT - 03/24/2021 08:41:00 AM EDT [facility] ([facility]) OutpatientPREV VISIT, EST, AGE 18-39 Attender: Lary Hyde NP SLEEVE TURNER PPNCNY [place] 03/17/2021 01:30:00 PM EDT - 03/17/2021 01:30:00 PM ED T Encounter for screening for malignant neoplasm of cervixEncounter for oth screening for malignant neoplasm of breastOther sex counselingHuman immunodeficiency virus [HIV] counseling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) w/o abn findingsEnctr srvlnc implantable subdermal contraceptiveEncounter for oth general cnsl and advice on contraceptionEncounter for test, result negative [facility] ([facility]) Encounter for screening for malignant ne oplasm of cervix Encounter for oth screening for malignan t neoplasm of breast Other sex counseling Human immunodeficiency virus [HIV] couns eling 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) w/o abn findings Enctr srvlnc implantable subdermal contr aceptive Encounter for oth general cnsl and advic e on contraception Encounter for test, result neg ative Outpatient Attender: YURY Eisenbergsultant: PHYSICIAN NON -STAFF 03/14/2021 10:53:00 AM EDT - 03/14/2021 10:53:00 AM EDT [facility] Outpatient Attender: YURY MCKINNEYConsultant: PHYSICIAN NON -STAFF 02/20/2021 07:55:00 AM EDT - 02/20/2021 07:55:00 AM EDT [facility] Outpatient Attender: ANGY CAMACHO PAConsultant: PHYSICIAN NON-STAFF 02/14/2021 09:01:00 AM EDT - 02/14/2021 09:01:00 AM EDT [facility] Outpatient Attender: YURY Hernándezant: PHYSICIAN NON -STAFF 02/13/2021 10:08:00 AM EDT - 02/13/2021 10:08:00 AM EDT [facility] Attender: Promise Graff 10:00:00 AM EDT - 02/03/2021 10:00:00 AM EDT [facility] ([facility]) Attender: Promise Graff 06/2021 09:30:00 AM EDT - 01/31/2021 09:30:00 AM EDT Enctr for init prescription of implntbl subdermal contracepEncounter for oth general cnsl and advice on contraceptionOther sex counseling [facility] ([facility]) Enctr for init prescription of implntbl subdermal contracep Encounter for oth general cnsl and advic e on contraception Other sex counseling OutpatientOFFICE VISIT, EST Attender: Lary Graff 01/27/2021 11:40:00 AM EDT - 01/27/2021 11:40:00 AM EDT Irregular menstruation, unspecifiedOther sex counselingHuman immunodeficiency virus [HIV] counselingEncounter for oth general cnsl and advice on contraceptionEncntr for f/u exam aft trtmt for cond oth than malig neoplmAbnormal uterine and vaginal bleeding, unspecified [facility] ([facility]) Irregular menstruation, unspecified Other sex counseling Human immunodeficiency virus [HIV] couns eling Encounter for oth general cnsl and advic e on contraception Encntr for f/u exam aft trtmt for cond o th than malig neoplm Abnormal uterine and vaginal bleeding, u nspecified Attender: Elvira Graff 02/2021 11:05:00 AM EDT - 01/27/2021 11:05:00 AM EDT [facility] ([facility]) Attender: Lary Graff 0 01/25/2021 08:07:00 PM EDT - 01/25/2021 08:07:00 PM EDT Encounter for elective termination of [facility] ([facility]) Encounter for elective termination of pr egnancy Attender: Lary Graff 0 01/22/2021 11:05:00 AM EDT - 01/22/2021 11:05:00 AM EDT [facility] ([facility]) Attender: Lary Graff 0 01/21/2021 03:35:00 PM EDT - 01/21/2021 03:35:00 PM EDT Inapprop chg quantitav hCG in early [facility] ([facility]) Inapprop chg quantitav hCG in early preg [place] Attender: Lary Graff 0 01/17/2021 08:27:00 AM EDT - 01/17/2021 08:27:00 AM EDT [facility] ([facility]) HCS Without Test Attender: Lary Graff 01/15/2021 09:30:00 AM EDT - 01/15/2021 09:30:00 AM EDT Encntr screen for infections w sexl mode of transmissEncounter for other specified special examinationsEncounter for blood typingEncounter for elective termination of pregnancy state, incidentalProblems related to unwanted pregnancyEncounter for test, result positiveEncounter for oth general cnsl and advice on contraceptionOther sex counselingHuman immunodeficiency virus [HIV] counseling [facility] ([facility]) Encntr screen for infections w sexl mode of transmiss Encounter for other specified special ex aminations Encounter for blood typing Encounter for elective termination of pr egnancy state, incidental Problems related to unwanted Encounter for test, result pos itive Encounter for oth general cnsl and advic e on contraception Other sex counseling Human immunodeficiency virus [HIV] couns bing Outpatient Attender: Alma Rosa Chaney MD Main office - [facility] 01/13/2021 12:00:00 PM EDT [facility] ([facility], ) Outpatient Attender: YURY MCKINNEYConsultant: PHYSICIAN NON -STAFF 01/13/2021 09:53:00 AM EDT - 01/13/2021 09:53:00 AM EDT [facility] Outpatient Attender: Berenice Payne MDConsultant: PHYSIC AMITA NON-STAFF 12/26/2020 01:01:00 PM EDT - 12/26/2020 01:01:00 PM EDT [facility] Outpatient Attender: Berenice Payne MDConsultant: PHYSIC AMITA NON-STAFF 11/19/2020 03:47:00 PM EDT - 11/19/2020 03:47:00 PM EDT [facility] Outpatient Attender: Berenice Payne MDConsultant: PHYSIC AMITA NON-STAFF 11/01/2020 10:59:00 AM EST - 11/01/2020 10:59:00 AM EST [facility] Outpatient Attender: Berenice Payne MD Family Practice 0 11/01/2020 10:00:00 AM EST [facility] ([facility] Outpatient Attender: Edel tejada 10/04/2020 03:30:00 PM EST [facility] ([facility]) Outpatient Attender: KATHERINE hensony 09/03/2020 12:20:00 PM EST [facility] ([facility]) Outpatient Attender: Berenice Payne MD 0 05/17/2020 03:52:00 PM EDT - 05/17/2020 03:52:00 PM EDT [facility] Medications Medication Brand Name Start Date Product Form Dose Route Admi nistrative Instructions Pharmacy Instructions Status Indications Reaction Description Data Source(s) 24 HR venlafaxine 75 MG Extended Release Oral Capsule Venlaf axine HCL ER 05/06/2021 12:00:00 AM EDT ORAL active [facility] ([facility]) 75 mg 05/06/2021 12:00:00 AM EDT capsule,extended releas e 24hr 30 TAKE 1 CAPSULE BY MOUTH EVERY DAY TAKE 1 CAPSULE BY MOUTH EVERY DAY SOLD: 05/06/2021 [facility] Dexamethasone 1 MG/ML / Neomycin 3.5 MG/ ML / Polymyxin B 75169 UNT/ML Ophthalmic Suspension Neomycin/Polymyxin/Dexamethasone 04/03/2021 12:00:00 AM EDT OPHTHALMIC completed [facility] ([facility]) venlafaxine 37.5 MG Oral Tablet Venlafaxine HCL 04/02/2021 12:00:00 A M EDT ORAL completed [facility] ([facility]) Hydrocortisone 10 MG/ML / Neomycin 3.5 M G/ML / Polymyxin B 21919 UNT/ML Ophthalmic Suspension Neomycin/Polymyxin/Hydrocortisone (Ophthalmic) 021 12:00:00 AM EDT OPHTHALMIC completed [facility] ([facility]) Levetiracetam 500 MG Oral Tablet Levetiracetam 02/04/2021 12:00:00 AM EDT active [facility] ([facility]) Etonogestrel 68 MG Drug Implant [Nexplanon] Nexplanon 68 mg subdermal implant Nexplanon 68 mg subdermal implant 01/31/2021 12:00:00 AM EDT active etonogestrel 68 MG Drug Implant [Nexplanon] [facility] ([facility] Mifepristone 200 MG Oral Tablet [Mifeprex] Mifeprex 20 0 mg tablet Mifeprex 200 mg tablet 01/15/2021 12:00:00 AM EDT complete d mifepristone 200 MG Oral Tablet [Mifeprex] [facility] ([facility]) Ondansetron 4 MG Oral Tablet ondansetron HCl 4 mg tabl et ondansetron HCl 4 mg tablet 01/15/2021 12:00:00 AM EDT completed 1 tab po every 4 hours prn [facility] ([facility]) Ibuprofen 800 MG Oral Tablet ibuprofen 800 mg tablet ibuprof en 800 mg tablet 01/15/2021 12:00:00 AM EDT completed 1 tab po every 8 hours prn [facility] ([facility]) Misoprostol 0.2 MG Oral Tablet misoprostol 200 mcg tab let misoprostol 200 mcg tablet 01/15/2021 12:00:00 AM EDT completed 4 tabs intravaginally within the next 48 hours [facility] Acetaminophen 300 MG / Codeine Phosphate 30 MG Oral Tablet acetaminophen 300 mg- codeine 30 mg tablet acetaminophen 300 mg-codeine 30 mg tablet 01/15/2021 12:00:00 AM EDT active 1-2 tabs po every 4 hours prn pain [facility] ([facility]) MDD 8 tablets 60 ACTUAT Albuterol 0.09 MG/ACTUAT Metered Dose Inhaler Albu terol Sulfate HFA 11/20/2020 12:00:00 AM EDT ORAL active [facility] ([facility]) 60 ACTUAT Albuterol 0.09 MG/ACTUAT Metered Dose Inhaler Albu terol Sulfate A 11/20/2020 12:00:00 AM EDT ORAL active [facility] ([facility]) Citalopram 20 MG Oral Tablet Citalopram Hydrobromide 11/01/2020 12:00:00 AM EST ORAL completed [facility] ([facility]) Citalopram 20 MG Oral Tablet Citalopram Hydrobromide 11/01/2020 12:00:00 AM EST ORAL completed [facility] ([facility]) Prednisone 20 MG Oral Tablet Prednisone 10/04/2020 12:00:00 AM EST active [facility] ([facility]) 60 ACTUAT Albuterol 0.09 MG/ACTUAT Metered Dose Inhaler Albu terol Sulfate A 10/04/2020 12:00:00 AM EST RESPIRATORY active [facility] ([facility], [facility]) Chris [employer] David Carpal Tunnel Syndrome Brace/Right/Regular 05/17/2020 12:00:00 AM EDT active [facility] ([facility]) Perez [employer] Black Carpal Tunnel Syndrome Brace/Left/Regular 05/17/2020 12:00:00 AM EDT active [facility] ([facility]) Levetiracetam 500 MG Oral Tablet [Keppra] Keppra 500 m g tablet Keppra 500 mg tablet completed levetiracetam 5 00 MG Oral Tablet [Keppra] [facility] ([facility]) Insurance Providers Payer name Policy type / Coverage type Policy ID Covered republican ID Covered republican's relationship to hobson Policy Hobson Plan Information [facility] I [id number] Self [id number] [facility] COMMUNTY PLAN [id number] FOR[facility]LY [facility] COMMUNITY PLAN XIX [id number] 18 [id number] [facility] COMMUNITY PLAN [facility] [id number] SP [id number] [employer] COMP [id number] SP [id number] PROGRESSIVE CO NO FAULT [id number] SP [id number] PROGRESSIVE CO NO FAULT [id number] SP [id number] [facility] O [id number] S [id number] [facility] Communty Plan Medicaid [id number] Self [id number] [facility] AMERICHOICE XIX -HMO [id number] 18 [id number] [facility] COMMUNITY PLAN [facility] [id number] SP [id number] [facility] Communty Plan Medicaid [id number] Self [id number] MEDICAID M [id number] S [id number] [facility] Communty Plan Medicaid [id number] Self [id number] MEDICAID [facility] [id number] 18 [id number] MEDICAID -PHYSICIAN [id number] Medicaid [facility] Medicaid [id number] Self [id number] [facility](MCAID) O [id number] S [id number] [facility] Community Plan Medicaid [id number] Self [id number] [facility] COMMUNITY PLAN [id number] 18 [id number] [employer] COMMUNITY PLAN XIX [id number] 18 [id number] [facility] Health Maintenance Organization (HMO) [id number] Self [facility](MCAID) O [id number] S [id number] [facility] WC-O/P [id number] 18 [id number] [employer] AMERICHOICE XIX -HMO [id number] 18 [id number] MEDICAID - O/P EMERGENCY ROOM [id number] 18 [id number] MEDICAID - CLINIC [id number] [facility] COMMUNITY PLAN [place] [id number] 18 [id number] Problems, Conditions, and Diagnoses Code Display Name Description Problem Type Effective Dates Data Source(s) F1290 Cannabis use, unspecified, uncomplicated Cannabis use, unspecified, uncomplicated Diagnosis 05/06/2021 11:49:00 AM [facility] Z6379 Other stressful life events affecting fa rocco and household Other stressful life events affecting family and household Diagnosis 04/08/2021 12:54:00 PM [facility] F419 Anxiety disorder, unspecified Anxiety disorder, unspec ified Diagnosis 04/08/2021 12:54:00 PM [facility] F3289 Other specified depressive episodes Other specif ied depressive episodes Diagnosis 04/08/2021 12:54:00 PM T [facility] H109 Unspecified conjunctivitis Unspecified conjunctivitis Diagnosis 04/02/2021 12:51:00 PM [facility] R634 Abnormal weight loss Abnormal weight loss Diagnosis 04/02/2021 12:51:00 PM [facility] M7910 Myalgia, unspecified site Myalgia, unspecified site Di agnosis 12/26/2020 01:01:00 PM [facility] [id number] Nicotine dependence, cigarettes, uncompl icated Nicotine dependence, cigarettes, uncomplicated Diagnosis 11/19/2020 03:47:00 PM EDT [facility] N99039 Migraine without aura, not intractable, without status migrainosus Migraine without aura, not intractable, without status migrainosus Diagnosis 11/01/2020 10:59:00 AM EST [facility] G5602 Carpal tunnel syndrome, left upper limb Carpal tunnel syndrome, left upper limb Diagnosis 05/17/2020 03:52:00 PM EDT [facility] G5601 Carpal tunnel syndrome, right upper limb Carpal tunnel syndrome, right upper limb Diagnosis 05/17/2020 03:52:00 PM EDT [facility] [id number] HPV - Human papillomavirus test positive HPV - Human papillomavirus test positive Problem 03/17/2021 12:00:00 AM EDT [facility] ([facility]) [id number] Generalized-onset seizures Generalized-onset seizures Problem 01/13/2021 12:00:00 AM EDT [facility] ([facility] F32.89 Depressive disorder Depressive disorder Problem 0 11/01/2020 12:00:00 AM EST [facility] ([facility]) [id number] Depressive disorder Depressive disorder Problem 0 11/01/2020 12:00:00 AM EST [facility] ([facility] ) Surgeries/Procedures Procedure Description Date Indications Data Source(s) OFFICE OUTPATIENT VISIT 15 MINUTES 05/20/2021 12:00:00 AM EDT [facility] ([facility]) Psychiatric Diag Eval W/Medical Service 05/06/2021 12: 00:00 AM EDT [facility] ([facility]) MRI BRAIN BRAIN STEM W/O CONTRAST MATERIAL 04/26/2021 12:00:00 AM EDT [facility] ([facility] MRI BRAIN BRAIN STEM W/O CONTRAST MATERIAL 04/26/2021 12:00:00 AM EDT [facility] ([facility] ) OFFICE OUTPATIENT VISIT 40 MINUTES 04/16/2021 12:00:00 AM EDT [facility] ([facility] ) OFFICE OUTPATIENT VISIT 15 MINUTES 04/02/2021 12:00:00 AM EDT [facility] ([facility]) CVR Special Procedures Nurse.Svc. STI / H 03/17/2021 12:00:00 AM EDT - 03/17/2021 12:00:00 AM EDT [facility] ([facility]) CVR Special Procedures Nurse.Svc. Contraceptive 03/17/2021 12 :00:00 AM EDT - 03/17/2021 12:00:00 AM EDT [facility] ([facility]) CVR Med.Svc. Height/Weight 03/17/2021 12 :00:00 AM EDT - 03/17/2021 12:00:00 AM EDT [facility] ([facility]) CVR Blood Pressure 03/17/2021 12:00:00 AM EDT - 2020 12:00:00 AM EDT [facility] ([facility]) HCS Without Test 03/17/2021 12:00:00 AM EDT - 03/17/20 21 12:00:00 AM EDT [facility] ([facility]) CYTOPATH, C/V, INTERPRET 03/17/2021 12:0 0:00 AM EDT - 03/17/2021 12:00:00 AM EDT [facility] ([facility]) HPV, DNA, AMP PROBE HIGH RISK 03/17/2021 12:00:00 AM EDT - 03/17/2021 12:00:00 AM EDT [facility] ([facility]) CYTOPATH, C/V, THIN LAYER 03/17/2021 12: 00:00 AM EDT - 03/17/2021 12:00:00 AM EDT [facility] ([facility]) PREV VISIT, EST, AGE 18-39 03/17/2021 12 :00:00 AM EDT - 03/17/2021 12:00:00 AM EDT [facility] ([facility]) URINE TEST 03/17/2021 12:00:00 AM EDT - 03/17/2021 12:00:00 AM EDT [facility] ([facility]) EEG Complete STD Phys/QHP>36 HR<60 HR W/O Video 2020 12:00:00 AM EDT [facility] ([facility]) EEG Complete STD Phys/QHP>60 HR<84 HR W/O Video 2020 12:00:00 AM EDT [facility] ([facility]) 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 STI / H 01/31/2021 12:00:00 AM EDT - 01/31/2021 12:00:00 AM EDT [facility] ([facility]) CVR Special Procedures Nurse.Svc. Other 01/31/2021 12:00:00 AM EDT - 2020 12:00:00 AM EDT [facility] ([facility]) CVR Med.Svc. Method Initiation 12:00:00 AM EDT - 01/31/2021 12:00:00 AM EDT [facility] ([facility]) CVR Med.Svc. Height/Weight 01/31/2021 12 :00:00 AM EDT - 01/31/2021 12:00:00 AM EDT [facility] ([facility]) CVR Blood Pressure 01/31/2021 12:00:00 AM EDT - 2020 12:00:00 AM EDT [facility] ([facility]) Nexplanon 01/31/2021 12:00:00 AM EDT - 01/31/2021 1 2:00:00 AM EDT [facility] ([facility]) IMPLANT INSERTION 01/31/2021 12:00:00 AM EDT - 021 12:00:00 AM EDT [facility] ([facility]) CVR Special Procedures Nurse.Svc. STI / H 01/27/2021 12:00:00 AM EDT - 01/27/2021 12:00:00 AM EDT [facility] ([facility]) CVR Special Procedures Nurse.Svc. Other 01/27/2021 12:00:00 AM EDT - 2020 12:00:00 AM EDT [facility] ([facility]) CVR Special Procedures Nurse.Svc. Contraceptive 01/27/2021 12 :00:00 AM EDT - 01/27/2021 12:00:00 AM EDT [facility] ([facility]) CVR Med.Svc. Height/Weight 01/27/2021 12 :00:00 AM EDT - 01/27/2021 12:00:00 AM EDT [facility] ([facility]) CVR Blood Pressure 01/27/2021 12:00:00 AM EDT - 2020 12:00:00 AM EDT [facility] ([facility]) HCS Without Test 01/27/2021 12:00:00 AM EDT - 01/28/20 21 12:00:00 AM EDT [facility] ([facility]) OFFICE VISIT, EST 01/27/2021 12:00:00 AM EDT - 021 12:00:00 AM EDT [facility] ([facility]) CAPILLARY BLOOD DRAW 01/27/2021 12:00:00 AM EDT - 01/27/2021 12:00:00 AM EDT [facility] ([facility]) HEMOGLOBIN 01/27/2021 12:00:00 AM EDT - 01/27/2021 1 2:00:00 AM EDT [facility] ([facility]) Exclude From Aleah For Title X 01/22/20 21 12:00:00 AM EDT - 01/21/2021 12:00:00 AM EDT [facility] ([facility]) CVR Special Procedures Nurse.Svc. Other 01/21/2021 12:00:00 AM EDT - 2020 12:00:00 AM EDT [facility] ([facility]) CVR Special Procedures Nurse.Svc. Contraceptive 01/21/2021 12 :00:00 AM EDT - 01/21/2021 12:00:00 AM EDT [facility] ([facility]) CVR Med.Svc. Height/Weight 01/21/2021 12 :00:00 AM EDT - 01/21/2021 12:00:00 AM EDT [facility] ([facility]) CVR Blood Pressure 01/21/2021 12:00:00 AM EDT - 2020 12:00:00 AM EDT [facility] ([facility]) CVR Med.Svc. 2-10 Female Full Exam Panel 01/21/2021 12:00:00 AM EDT - 01/21/2021 12:00:00 AM EDT [facility] ([facility]) CHORIONIC GONADOTROPIN TEST 01/21/2021 1 2:00:00 AM EDT - 01/21/2021 12:00:00 AM EDT [facility] ([facility]) ROUTINE VENIPUNCTURE 01/21/2021 12:00:00 AM EDT - 01/21/2021 12:00:00 AM EDT [facility] ([facility]) OFFICE VISIT, NEW 01/15/2021 12:00:00 AM EDT - 021 12:00:00 AM EDT [facility] ([facility]) CVR Pos.Preg. NOT DESIRED 01/15/2021 12: 00:00 AM EDT - 01/15/2021 12:00:00 AM EDT [facility] ([facility]) CVR Special Procedures Nurse.Svc. STI / H 01/15/2021 12:00:00 AM EDT - 01/15/2021 12:00:00 AM EDT [facility] ([facility]) CVR Special Procedures Nurse.Svc. Other 01/15/2021 12:00:00 AM EDT - 2020 12:00:00 AM EDT [facility] ([facility]) CVR Special Procedures Nurse.Svc. Options 12:00:00 AM EDT - 01/15/2021 12:00:00 AM EDT [facility] ([facility]) CVR Special Procedures Nurse.Svc. Contraceptive 01/15/2021 12 :00:00 AM EDT - 01/15/2021 12:00:00 AM EDT [facility] ([facility]) CVR Med.Svc. Height/Weight 01/15/2021 12 :00:00 AM EDT - 01/15/2021 12:00:00 AM EDT [facility] ([facility]) CVR Blood Pressure 01/15/2021 12:00:00 AM EDT - 2020 12:00:00 AM EDT [facility] ([facility]) HCS Without Test 01/15/2021 12:00:00 AM EDT - 01/16/20 21 12:00:00 AM EDT [facility] ([facility]) Misoprostol, oral, 200 mcg 4 Tabs MAB 12:00:00 AM EDT - 01/15/2021 12:00:00 AM EDT [facility] ([facility]) Mifeprex, oral, 200 mg 01/15/2021 12:00: 00 AM EDT - 01/15/2021 12:00:00 AM EDT [facility] ([facility]) Lab RH Factor With Blood Type 01/15/2021 12:00:00 AM EDT - 01/15/2021 12:00:00 AM EDT [facility] ([facility]) CHORIONIC GONADOTROPIN TEST 01/15/2021 1 2:00:00 AM EDT - 01/15/2021 12:00:00 AM EDT [facility] ([facility]) N.GONORRHOEAE, URINE 01/15/2021 12:00:00 AM EDT - 01/15/2021 12:00:00 AM EDT [facility] ([facility]) CT/GC URINE Insurance 01/15/2021 12:00:00 AM EDT - 01/15/2021 12:00:00 AM EDT [facility] ([facility]) CAPILLARY BLOOD DRAW 01/15/2021 12:00:00 AM EDT - 01/15/2021 12:00:00 AM EDT [facility] ([facility]) HEMOGLOBIN 01/15/2021 12:00:00 AM EDT - 01/15/2021 1 2:00:00 AM EDT [facility] ([facility]) URINE TEST 01/15/2021 12:00:00 AM EDT - 01/15/2021 12:00:00 AM EDT [facility] ([facility]) ROUTINE VENIPUNCTURE 01/15/2021 12:00:00 AM EDT - 01/15/2021 12:00:00 AM EDT [facility]) Psychiatric Diagnostic Evaluation 01/13/2021 12:00:00 AM EDT [facility] ([facility]) OFFICE OUTPATIENT VISIT 40 MINUTES 01/13/2021 12:00:00 AM EDT [facility] ([facility]) INITIAL HOSPITAL CARE/DAY 70 MINUTES 01/06/2021 12:00: 00 AM EDT [facility] ([facility]) OFFICE OUTPATIENT VISIT 15 MINUTES 11/19/2020 12:00:00 AM EDT [facility] ([facility]) Brief Emotional/Behav Assessment W/ Scoring Doc Per Standard Inst 11/01/2020 12:00:00 AM EST [facility] ([facility]) Admin Patient Focused Health Risk Assessment Instrument 11/01/2020 12:00:00 AM EST [facility] ([facility]) OFFICE OUTPATIENT VISIT 15 MINUTES 11/01/2020 12:00:00 AM EST [facility] ([facility]) Results ID Date Data Source [id number] 04/06/2021 12:16:00 AM EDT [facility] Name Value Range Interpretation Code Description Data Geeta rce(s) Supporting Document(s) SARS coronavirus 2 RNA [Presence] in Res piratory specimen by STEPHEN with probe detection NEGATIVE [facility] This lab was ordered by [facility] a nd reported by [facility]. ID Date Data Source [id number] 04/02/2021 01:22:00 PM EDT [facility] ([facility]) Name Value Range Interpretation Code Description Data Geeta rce(s) Supporting Document(s) Cobalamin (Vitamin B12) [Mass/volume] in Serum or Plasma 446 pg/mL 2 32-1245 [facility] ([facility]) Is patient fasting? N Thyrotropin [Units/volume] in Serum or Plasma 0.88 uIU/mL 0.47-5.01 [facility] ([facility]) Is patient fasting? N ID Date Data Source [id number] 04/02/2021 01:22:00 PM EDT [facility] ([facility]) Name Value Range Interpretation Code Description Data Geeta rce(s) Supporting Document(s) Comprehensive [facility] Laboratory test result [facility] ([facility]) Is patient fasting? N Sodium 136 meq/L 134-153 [facility] ([facility]) Is patient fasting? N Potassium 3.4 meq/L 3.6-5.0 Below low normal [facility] ( [facility]) Is patient fasting? N Chloride 101 meq/L 98-107 [facility] ([facility]) Is patient fasting? N Glucose 129 mg/dL 70-99 Above high normal [facility] ([facility]) Is patient fasting? N Co2 24 meq/L 22-30 [facility] ([facility]) Is patient fasting? N BUN/Creat 23 8-27 [facility] ([facility]) Is patient fasting? N Creatinine 0.4 mg/dL 0.7-1.5 Below low normal [facility] ( [facility]) Is patient fasting? N BUN 9 mg/dL 7-21 [facility] Is patient fasting? N Total Protein 6.8 g/dL 6.3-8.2 [facility] ([facility]) Is patient fasting? N Albumin 3.4 g/dL 3.9-5.0 Below low normal [facility] ( [facility]) Is patient fasting? N A/G Ratio 1.0 0.8-2.0 [facility] ([facility]) Is patient fasting? N Calcium 8.3 mg/dL 8.4-10.2 Below low normal [facility] ( [facility]) Is patient fasting? N Globulin 3.4 GM/DL 2.4-3.2 Above high normal [facility] ([facility]) Is patient fasting? N Total Bili Laboratory test result 0.2-1.3 [facility] ([facility]) Is patient fasting? N Alkaline Phos 72 U/L 38-126 [facility] ([facility]) Is patient fasting? N Sgot/Ast 18 U/L 5-40 [facility] ([facility]) Is patient fasting? N SGPT/Alt 9 U/L 7-56 [facility] ([facility]) Is patient fasting? N Anion Gap 11.0 mmol/L 8.0-16.0 [facility] ([facility]) Is patient fasting? N Non-Aa GFR Laboratory test result [facility] ([facility]) Is patient fasting? N Afr Amer GFR Laboratory test result [facility] ([facility]) Is patient fasting? N Age 25 yrs [facility] ([facility]) Is patient fasting? N ID Date Data Source [id number] 04/02/2021 01:22:00 PM EDT [facility] ([facility]) Name Value Range Interpretation Code Description Data Geeta rce(s) Supporting Document(s) WBC 17.7 10^3/uL 4.2-11.0 Above high normal MEDEN T ([facility]) Is patient fasting? N CBC No Diff Laboratory test result M EDENT ([facility]) Is patient fasting? N Hemoglobin 13.8 g/dL 12.0-16.0 MEDENT ([facility]) Is patient fasting? N RBC 4.42 10^6/uL 4.20-5.40 MEDENT ([facility]) Is patient fasting? N MCV 93.4 fL 81.0-101 MEDENT ([facility]) Is patient fasting? N Hematocrit 41.3 % 37.0-47.0 MED[facility] ([facility]) Is patient fasting? N RDW 13.4 % 11.5-14.5 MEDENT ([facility]) Is patient fasting? N MCHC 33.4 g/dL 31.0-36.0 MED[facility] ([facility]) Is patient fasting? N MCH 31.2 pg 27.0-34.0 [facility] Is patient fasting? N MPV 10.6 fL 7.4-10.4 Above high normal MEDENT ([facility]) Is patient fasting? N Platelets 366 10^3/uL 150-450 MEDENT ([facility]) Is patient fasting? N ID Date Data Source [id number] 04/02/2021 06:59:00 PM EDT [facility] Name Value Range Interpretation Code Description Data Geeta rce(s) Supporting Document(s) Cobalamin (Vitamin B12) [Mass/volume] in Serum or Plasma 446 PG/ML 232 - 1245 [facility] ID Date Data Source [id number] 04/02/2021 06:59:00 PM EDT [facility] Name Value Range Interpretation Code Description Data Geeta rce(s) Supporting Document(s) Thyrotropin [Units/volume] in Serum or Plasma by Detec tion limit <= 0.05 mIU/L 0.88 uIU/mL 0.47 - 5.01 [facility] ID Date Data Source [id number] 04/02/2021 06:41:00 PM EDT [facility] Name Value Range Interpretation Code Description Data Geeta rce(s) Supporting Document(s) COMPREHENSIVE METABOLIC PANEL [facility] COMPREHENSIVE METABOLIC PANEL Sodium [Moles/volume] in Serum or Plasma 136 mEq/L 134 - 153 [facility] Potassium [Moles/volume] in Serum or Plasma 3.4 mEq/L 3.6 - 5.0 L [facility] Chloride [Moles/volume] in Serum or Plasma 101 mEq/L 98 - 107 [facility] Carbon dioxide, total [Moles/volume] in Serum or Plasma 24 MEQ/L 22 - 30 [facility] Glucose [Mass/volume] in Serum or Plasma 129 MG/DL 70 - 99 H [facility] BUN 9 MG[facility]DL 7 - [facility] Creat[facility] [Mass/volume] in Serum or Plasma 0.4 MG/DL 0.7 - 1.5 L [facility] BUN/CREAT 23 8 - 27 [facility] al Protein [Mass/volume] in Serum or Plasma 6.8 G/DL 6.3 - 8.2 [facility] Albumin [Mass/volume] in Serum or Plasma 3.4 G/DL 3.9 - 5.0 L [facility] Globulin [Mass/volume] in Serum by calculation 3.4 GM/DL 2.4 - 3.2 H [facility] A/G RATIO 1.0 0.8 - 2.0 [facility] Calcium [Mass/volume] in Serum or Plasma 8.3 MG/DL 8.4 - 10.2 L [facility] Bilirubin.total [Mass/volume] in Serum or Plasma <0.7 MG/DL 0.2 - 1.3 [facility] Alkaline phosphatase [Enzymatic activity/volume] in Serum or Plasma 72 U/L 38 - 126 [facility] Aspartate aminotransferase [Enzymatic activity/volume] in Serum or Plasma 18 U/L 5 - 40 [facility] Alanine aminotransferase [Enzymatic activity/volume] in Seru m or Plasma 9 U/L 7 - 56 [facility] Anion gap 3 in Serum or Plasma 11.0 mmol/L 8.0 - 16.0 [facility] AGE 25 yrs [facility] al NON-AA GFR >60 mL/min [facility] ital AFR AMER GFR >60 mL/min [facility] Ho spital Male GFR In terprentation 20-49 yrs >60 mL/min Normal 50-59 yrs >56 mL/min Normal 60-69 yrs >49 mL/min Normal 70-79yrs >42 mL/min Normal 80 and above >35 mL/min Normal Female GFR Interpretation 20-39 yrs >60 mL/min Normal 40-49 yrs >58 mL/min Normal 50-59 yrs >51 mL/min Normal 60-69 yrs >45 mL/min Normal 70-79 yrs >39 mL/min Normal 80 and above >32 mL/min Normal ID Date Data Source [id number] 04/02/2021 06:41:00 PM EDT [facility] Name Value Range Interpretation Code Description Data Geeta rce(s) Supporting Document(s) CBC NO DIFF [facility] ital COMPLETE BLOOD COUNT Leukocytes [#/volume] in Blood by Automated count 17.7 10^3/uL 4.2 - 11.0 H [facility] Erythrocytes [#/volume] in Blood by Automated count 4.42 10^6/uL 4. 20 - 5.40 [facility] Hemoglobin [Mass/volume] in Blood 13.8 g/dL 12.0 - 16.0 [facility] Hematocrit [Volume Fraction] of Blood by Automated count 41.3 % 3 7.0 - 47.0 [facility] Erythrocyte mean corpuscular volume [Entitic volume] by Auto mated count 93.4 fL 81.0 - 101 [facility] Erythrocyte mean corpuscular hemoglobin [Entitic mass] by Automated count 31.2 pg 27.0 - 34.0 [facility] Erythrocyte mean corpuscular hemoglobin concentration [Mass/volume] by Automated count 33.4 g/dL 31.0 - 36.0 [facility] Erythrocyte distribution width [Ratio] by Automated count 13.4 % 11.5 - 14.5 [facility] Platelets [#/volume] in Blood by Automated count 366 10^3/uL 150 - 45 0 [facility] Platelet mean volume [Entitic volume] in Blood by Automated count 10.6 fL 7.4 - 10.4 H [facility] ID Date Data Source [id number] 03/17/2021 01:45:36 PM EDT [facility] ([facility]) Name Value Range Interpretation Code Description Data Geeta rce(s) Supporting Document(s) NegativeLot: [id number]: 08/22/2022 [facility] ID Date Data Source [id number] 02/14/2021 09:43:00 AM EDT MEDENT ([facility]) Name Value Range Interpretation Code Description Data Geeta rce(s) Supporting Document(s) Laboratory test finding (navigational concept) Laboratory test result MEDENT ([facility]) {DIAGNOSIS: F41.9 F32.89~{MEDICATIONS/D ECLARED: KEPPRA~{PRESCRIPTION INFO:~{PRESCRIPTION INFO: PDF Laboratory test result MEDENT ([facility]) {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 Source of THC is most commonly herbal marijuana or marijuana-based products, but THC is also present in a scheduled prescription medication. Trace amounts of THC can be present in hemp and cannabidiol (CBD) products. This test is not intended to distinguish between rqlww-2-hgqwathjbdvagmgkiwsu, the predominant form of THC in most herbal or marijuana-based products, and nlbot-4-kpmjhhg drocannabinol. ==Test Result Flag Units Ref Range Creatinine 29 mg/dL > =20 Declared Medications: The flagging and interpretation on this report are based on the following declared medications. Unexpected results may arise from inaccuracies in the declared medications. Note: The testing scope of this panel does not include following reported medications: Levetiracetam (Keppra) For clinical consultation, please call . Report . [facility] ID Date Data Source [id number] 01/27/2021 12:01:12 PM EDT [facility] ([facility]) Name Value Range Interpretation Code Description Data Geeta rce(s) Supporting Document(s) 13.60 gm/dL Hemoglobin [facility] ([facility]) ID Date Data Source [id number] 01/21/2021 12:00:00 AM EDT [facility] ([facility]) Name Value Range Interpretation Code Description Data Geeta rce(s) Supporting Document(s) 86 SeeComment Abnormal (applies to non-nu meric results) hCG Quantitative - STAT [facility] Gestational Age Expected hCG values (m IU/mL)<1 Week: 5-501-2 Weeks: 50-5002-3 Weeks: 100-99479-3 Weeks: 654-537373-6 Weeks: 4513-660455-0 Weeks: 16882-4382933-0 Weeks: 97848-9450404-3 Months: 95313- [id number] < 10 The table above provides only an estimate of gestationalage and should be used in conjunction with other more reliable and accurate methods for establishing gestationalage, e.g., Last Menstrual Period (LMP) or ultrasound. Forresults of 5-25 mlU/mL, collect another sample and repeattest in 2 days, if is suspected. Values from different assay methods may vary.The use of this assay to monitor or to diagnose patients with cancer or any condition unrelatedto has not been cleared or approved bythe FDA or the cardiology associate of the assay.

Performed by:
RYAN ([id number])

ID Date Data Source [id number] 01/15/2021 10:29:48 AM EDT [facility] ([facility]) Name Value Range Interpretation Code Description Data Geeta rce(s) Supporting Document(s) PositiveLot: [id number]: 07/22/2022 Abnormal (applies to non-numeric results) High Sensitivity Urine Test [facility] ([facility]) ID Date Data Source [id number] 01/15/2021 10:19:40 AM EDT [facility] ([facility]) Name Value Range Interpretation Code Description Data Geeta rce(s) Supporting Document(s) 14.70 gm/dL Hemoglobin [facility] ([facility]) ID Date Data Source [id number] 01/15/2021 12:00:00 AM EDT [facility] ([facility]) Name Value Range Interpretation Code Description Data Geeta rce(s) Supporting Document(s) Negative Normal (applies to non-numeric resul ts) Urine CT/GC Combo - GC [facility] ([facility]) : Yes Performed by: RYAN ([id number]) ID Date Data Source [id number] 01/15/2021 12:00:00 AM EDT [facility] ([facility]) Name Value Range Interpretation Code Description Data Geeta rce(s) Supporting Document(s) Negative Normal (applies to non-numeric resul ts) Urine CT/GC Combo - CT [facility] ([facility]) ID Date Data Source [id number] 01/15/2021 12:00:00 AM EDT [facility] ([facility] Name Value Range Interpretation Code Description Data Geeta rce(s) Supporting Document(s) HIV-1/2 Non-reactive Normal (applies to n on-numeric results) HIV-1/HIV-2 Ag/Ab [facility] ([facility]) The HIV Antigen (Ag)/Antibody (Ab) Combo ChemiluminescentMicroparticle Immunoassay (CMIA) is used for the simultaneousdetection of both the HIV-1 p24 Antigen and Antibodyto HIV-1 and for the Antibody to HIV-2. Performed by: RYAN ([id number]) ID Date Data Source [id number] 01/15/2021 12:00:00 AM EDT [facility] ([facility]) Name Value Range Interpretation Code Description Data Geeta rce(s) Supporting Document(s) RH (D) Positive Rh Type [facility] ([facility]) This assay does not detect weak D.Not al l anti-D reagents detect the same partial or weak expressions of D.Therefore, depending on the reagent used for testing, the interpretation ofthe D antigen may be different from one laboratory to another or fromhistorical records.Patients should be tested for the presence of weak D if clinically indicated.: Yes Performed by: RYAN ([id number]) ID Date Data Source [id number] 01/15/2021 12:00:00 AM EDT [facility] ([facility]) Name Value Range Interpretation Code Description Data Geeta rce(s) Supporting Document(s) 4380 SeeComment Abnormal (applies to non-numeri c results) hCG Quantitative [facility] ([facility]) Gestational Age Expected hCG values (m IU/mL)<1 Week: 5-501-2 Weeks: 50-5002-3 Weeks: 100-05826-3 Weeks: 773-861653-9 Weeks: 9157-199867-8 Weeks: 38410-9029329-0 Weeks: 08799-3288489-6 Months: 89359- [id number] < 10 The table above provides only an estimate of gestationalage and should be used in conjunction with other more reliable and accurate methods for establishing gestationalage, e.g., Last Menstrual Period (LMP) or ultrasound. Forresults of 5-25 mlU/mL, collect another sample and repeattest in 2 days, if is suspected. Values from different assay methods may vary.The use of this assay to monitor or to diagnose patients with cancer or any condition unrelatedto has not been cleared or approved bythe FDA or the cardiology associate of the assay.

Performed by:
CDKaro ([id number])

ID Date Data Source [id number] 01/05/2021 08:33:00 PM EDT [facility] Name Value Range Interpretation Code Description Data Geeta rce(s) Supporting Document(s) SARS-CoV-2 (COVID 19) NEGATIVE - SARS-CoV-2 (COVID19) [facility] This lab was ordered by [facility] a nd reported by [facility]. ID Date Data Source [id number] 01/05/2021 01:04:00 PM EDT [facility] ([facility]) Name Value Range Interpretation Code Description Data Geeta rce(s) Supporting Document(s) Barbiturates Urine Laboratory test result Normal (applies to non-numeric results) [facility] ([facility]) Amphetamines Level Urine Laboratory test result Normal (applies to non-numeric results) [facility] ([facility]) Benzodiazepines Urine Laboratory test result [place] (applies to non-numeric results) [facility] Cannabinoids Urine Laboratory test result Above high suma l [facility] ([facility]) Cocaine Metabolite Urine Laboratory test result Normal (applies to non-numeric results) [facility] ([facility]) Methadone Urine Laboratory test result Normal (a pplies to non-numeric results) [facility]) Opiates Urine Laboratory test result Normal (applies t o non-numeric results) [facility] ([facility]) Phencyclidine Urine Laboratory test result Suma l (applies to non-numeric results) [facility]) ALL PRESUMPTIVE POSITIVE FINDINGS AR E UNCONFIRMED THRESHOLD IN NG/ML AMPHETAMINES/METHAMPHET 1000 BARBITURATES [...] CLOSELY RELATED COMPOUNDS PLEASE CALL THE LAB. ID Date Data Source [id number] 01/05/2021 01:04:00 PM EDT [facility] ([facility] ) Name Value Range Interpretation Code Description Data Geeta rce(s) Supporting Document(s) Amphetamines Level Urine Laboratory test result [facility] ([facility], ) Benzodiazepines Urine Laboratory test result [facility] ([facility], ) Barbiturates Urine Laboratory test result [facility] ([facility], ) Cocaine Metabolite Urine Laboratory test result [facility] Cannabinoids Urine Laboratory test result [facility] ([facility], ) Methadone Urine Laboratory test result [facility] ([facility]) Opiates Urine Laboratory test result [facility] ([facility], ) Phencyclidine Urine Laboratory test result [facility] ([facility]) ALL PRESUMPTIVE POSITIVE FINDINGS AR E UNCONFIRMED THRESHOLD IN NG/ML AMPHETAMINES/METHAMPHET 1000 BARBITURATES [...] CLOSELY RELATED COMPOUNDS PLEASE CALL THE LAB. ID Date Data Source [id number] 01/05/2021 11:15:00 AM EDT [facility] ([facility]) Name Value Range Interpretation Code Description Data Geeta rce(s) Supporting Document(s) Choriogonadotropin.beta subunit ( test) [Pres ence] in Serum or Plasma Laboratory test result Abnormal (applies to non-numeric results) [facility]) Choriogonadotropin.beta subunit [Moles/volume] in Serum or Plasm a 142 MIU/ML Normal (applies to non-numeric results) [facility] ([facility]) GESTATIONAL AGE APPROXIMATE HCG RANGE (MIU/ML) - [...] or monitoring the treatment of cancer patients. [employer] methodology. ID Date Data Source [id number] 01/05/2021 11:15:00 AM EDT [facility] ([facility]) Name Value Range Interpretation Code Description Data Geeta rce(s) Supporting Document(s) Glucose, Fasting 100 mg/dL 70-100 Normal (applies to non-numeric results) [facility] ([facility]) Glomerular Filtration Rate Laboratory test result Normal (applies to non- numeric results) [facility]) <content>Units are mL/min/1.73 m2</content>
<content></content>
<content>Chronic Kidney Disease Staging per NKF:</content>
<content></content>
<content>Stage I & II GFR >=60 Normal to Mildly Decreased</content>
<content>Stage III GFR 30- 59 Moderately Decreased</content>
<content>Stage IV GFR 15-29 Severely Decreased</content>
<content>Stage V GFR <15 Very Little GFR Left</content>
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
<content></content> Blood Urea Nitrogen 13 mg/dL 7-18 Normal (applies to non-nume clayton results) [facility] ([facility]) Creatinine For GFR 0.73 mg/dL 0.55-1.30 Normal (applies to non -numeric results) [facility] ([facility]) Sodium Level 139 meq/L 136-145 Normal (applies to non-numeric res ults) [facility] ([facility]) Potassium Serum 3.8 meq/L 3.5-5.1 Normal (applies to non-numeric results) [facility] ([facility]) Chloride Level 109 meq/L 98-107 Above high normal [facility] ([facility]) Carbon Dioxide Level 27 meq/L 21-32 Normal (applies to non-num adi results) [facility] ([facility]) Anion Gap 3 meq/L 8-16 [facility] low [facility] Ast/Sgot 12 U/L 7-37 Normal (applies to non-numeric resul ts) [facility] ([facility]) Calcium Level 8.3 mg/dL 8.5-10.1 Below low normal MEDEN T ([facility]) Alt/SGPT 19 U/L 12-78 Normal (applies to non-numeric resul ts) [facility] ([facility]) Alkaline Phosphatase 54 U/L 45-117 Normal (applies to non-num adi results) [facility] Bilirubin,Total 0.6 mg/dL 0.2-1.0 Normal (applies to non-numeric results) [facility] ([facility]) Total Protein 7.5 GM/DL 6.4-8.2 Normal (applies to non-numeric re sults) [facility] ([facility]) Albumin 3.7 GM/DL 3.2-5.2 Normal (applies to non-numeric resul ts) [facility] ([facility]) Albumin/Globulin Ratio 1.0 1.2-2.2 Below low normal [facility] ID Date Data Source [id number] 01/05/2021 11:15:00 AM EDT [facility] ([facility]) Name Value Range Interpretation Code Description Data Geeta rce(s) Supporting Document(s) White Blood Count 14.4 10 4.0-10.0 Above high normal [facility]) Red Blood Count 4.94 10 4.00-5.40 Normal (applies to non-numeric results) [facility]) Hematocrit 46.8 % 36.0-47.0 Normal (applies to non-numeric resul ts) [facility]) Hemoglobin 15.7 g/dL 12.0-15.5 Above high normal [facility] ([facility]) Mean Corpuscular Hemoglobin 31.8 pg 27.0-33.0 Norm al (applies to non-numeric results) [facility]) Mean Corpuscular Volume 94.7 fl 80.0-96.0 Normal ( applies to non-numeric results) [facility] ([facility]) Platelet Count, Automated 322 10 150-450 Normal (applies to non-numeric results) [facility]) Mean Corpuscular HGB Conc 33.5 g/dL 32.0-36.5 Normal (applies to non-numeric results) [facility] ([facility]) Red Cell Distribution Width 14.2 % 11.5-14.5 Norm al (applies to non-numeric results) [facility] ([facility]) Nucleated Red Blood Cell % 0.0 % 0-0 Normal (applies to n on-numeric results) [facility]) ID Date Data Source [id number] 01/05/2021 11:15:00 AM EDT [facility] ([facility] ) Name Value Range Interpretation Code Description Data [facility] rce(s) Supporting Document(s) Choriogonadotropin.beta subunit ( test) [Pres ence] in Serum or Plasma Laboratory test result Abnormal (applies to non-numeric results) [facility] ([facility] ) Choriogonadotropin.beta subunit [Moles/volume] in Serum or Plasm a 142 MIU/ML [facility] ([facility] ) GESTATIONAL AGE APPROXIMATE HCG RANGE (MIU/ML) - [...] monitoring the treatment of cancer patients. Siemens manetch methodology. ID Date Data Source [id number] 01/05/2021 11:15:00 AM EDT [facility] ([facility], ) Name Value Range Interpretation Code Description Data Geeta rce(s) Supporting Document(s) Glucose, Fasting 100 mg/dL 70-100 [facility] ([facility], ) Creatinine For GFR 0.73 mg/dL 0.55-1.30 [facility] ([facility], ) Blood Urea Nitrogen 13 mg/dL 7-18 [facility] ([facility], ) Glomerular Filtration Rate Laboratory test result [facility] ([facility], ) <content>Units are mL/min/1.73 m2</content>
<content></content>
<content>Chronic Kidney Disease Staging per NKF:</content>
<content></content>
<content>Stage I & II GFR >=60 Normal to Mildly Decreased</content>
<content>Stage III GFR 30- 59 Moderately Decreased</content>
<content>Stage IV GFR 15-29 Severely Decreased</content>
<content>Stage V GFR <15 Very Little GFR Left</content>
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
<content></content>
<content></content> Sodium Level 139 meq/L 136-145 [facility] ([facility], ) Chloride Level 109 meq/L 98-107 [facility] ([facility], ) Potassium Serum 3.8 meq/L 3.5-5.1 [facility] ([facility]) Carbon Dioxide Level 27 meq/L 21-32 [facility] ([facility]) Anion Gap 3 meq/L 8-16 [facility] ([facility]) Calcium Level 8.3 mg/dL 8.5-10.1 [facility] ([facility]) Alt/SGPT 19 U/L 12-78 [facility] ([facility]) Ast/Sgot 12 U/L 7-37 [facility] ([facility]) Alkaline phosphatase [Enzymatic activity/volume] in Serum or Plasma 54 U/L 45-117 [facility] ([facility]) Bilirubin,Total 0.6 mg/dL 0.2-1.0 [facility] ([facility]) Total Protein 7.5 GM/DL 6.4-8.2 [facility] ([facility], ) Albumin 3.7 GM/DL 3.2-5.2 [facility] ([facility]) Albumin/Globulin Ratio 1.0 1.2-2.2 [facility] ([facility]) ID Date Data Source [id number] 01/05/2021 11:15:00 AM EDT [facility] ([facility]) Name Value Range Interpretation Code Description Data Geeta rce(s) Supporting Document(s) White Blood Count 14.4 10 4.0-10.0 [facility] ([facility], ) Hemoglobin 15.7 g/dL 12.0-15.5 [facility] ([facility], ) Red Blood Count 4.94 10 4.00-5.40 [facility] ([facility]) Hematocrit [Volume Fraction] of Blood by Automated count 46.8 % 3 6.0-47.0 [facility] ([facility]) Mean Corpuscular Volume 94.7 fl 80.0-96.0 M [facility]ENT ([facility]) Mean Corpuscular Hemoglobin 31.8 pg 27.0-33.0 [facility] ([facility]) Mean Corpuscular HGB Conc 33.5 g/dL 32.0-36.5 [facility] ([facility], ) Red Cell Distribution Width 14.2 % 11.5-14.5 [facility] Platelet Count, Automated 322 10 150-450 [facility] ([facility]) Nucleated Red Blood Cell % 0.0 % 0-0 [facility] ([facility]) ID Date Data Source [id number] 12/26/2020 01:36:00 PM EDT [facility]) Name Value Range Interpretation Code Description Data Geeta rce(s) Supporting Document(s) Cobalamin (Vitamin B12) [Mass/volume] in Serum or Plasma 329 pg/mL 2 32-1245 [facility] ([facility]) Is patient fasting? N Creatine kinase [Enzymatic activity/volume] in Serum or Plasma 2 21 U/L 30-170 Above high normal [facility] ([facility]) Is patient fasting? N Folate [Mass/volume] in Serum or Plasma 7.7 ng/mL 5.0-27.2 [facility] ([facility]) Is patient fasting? N Calcidiol [Mass/volume] in Serum or Plasma 21 ng/mL [facility] ([facility]) Is patient fasting? N Magnesium [Mass/volume] in Serum or Plasma 1.8 mg/dL 1.7-2.2 [facility]) Is patient fasting? N ID Date Data Source [id number] 12/26/2020 01:36:00 PM EDT [facility]) Name Value Range Interpretation Code Description Data Geeta rce(s) Supporting Document(s) Thyrotropin [Units/volume] in Serum or Plasma 1.56 uIU/mL 0.47-5.01 [facility] ([facility]) Is patient fasting? N Nuclear Ab [Titer] in Serum by Immunofluorescence Laboratory test res ult [facility] ([facility]) Is patient fasting? N Rheumatoid factor [Units/volume] in Serum or Plasma Laboratory t est result 0-14 [facility] ([facility]) Is patient fasting? N ID Date Data Source [id number] 12/26/2020 01:36:00 PM EDT [facility] ([facility]) Name Value Range Interpretation Code Description Data Geeta rce(s) Supporting Document(s) Comprehensive Metabo Laboratory test result [facility] ([facility]) Is patient fasting? N Sodium 138 meq/L 134-153 [facility] ([facility]) Is patient fasting? N Chloride 103 meq/L 98-107 [facility] ([facility]) Is patient fasting? N Potassium 4.3 meq/L 3.6-5.0 [facility] ([facility]) Is patient fasting? N Co2 28 meq/L 22-30 [facility] ([facility]) Is patient fasting? N Creatinine 0.6 mg/dL 0.7-1.5 Below low normal [facility] ( [facility]) Is patient fasting? N BUN 6 mg/dL 7-21 Below low normal [facility] ([facility]) Is patient fasting? N Glucose 88 mg/dL 70-99 [facility] ([facility]) Is patient fasting? N BUN/Creat 10 8-27 [facility] ([facility]) Is patient fasting? N Total Protein 6.7 g/dL 6.3-8.2 [facility] ([facility]) Is patient fasting? N Globulin 2.6 GM/DL 2.4-3.2 [facility]) Is patient fasting? N Albumin 4.1 g/dL 3.9-5.0 [facility]) Is patient fasting? N A/G Ratio 1.6 0.8-2.0 [facility] ([facility]) Is patient fasting? N Total Bili Laboratory test result 0.2-1.3 [facility] ([facility]) Is patient fasting? N Calcium 9.1 mg/dL 8.4-10.2 [facility] ([facility]) Is patient fasting? N Alkaline Phos 51 U/L 38-126 [facility] ([facility]) Is patient fasting? N Sgot/Ast 25 U/L 5-40 [facility] ([facility]) Is patient fasting? N Anion Gap 7.0 mmol/L 8.0-16.0 Below low normal [facility] ( [facility]) Is patient fasting? N SGPT/Alt 19 U/L 7-56 [facility] ([facility]) Is patient fasting? N Non-Aa GFR Laboratory test result [facility] ([facility]) Is patient fasting? N Age 25 yrs [facility] ([facility]) Is patient fasting? N Afr Amer GFR Laboratory test result [facility] ([facility]) Is patient fasting? N ID Date Data Source [id number] 12/26/2020 01:36:00 PM EDT [facility] ([facility]) Name Value Range Interpretation Code Description Data Geeta rce(s) Supporting Document(s) CBC No Diff Laboratory test result M [facility] ([facility]) Is patient fasting? N WBC 11.7 10^3/uL 4.2-11.0 Above high normal [facility] ([facility]) Is patient fasting? N Hemoglobin 15.0 g/dL 12.0-16.0 [facility] ([facility]) Is patient fasting? N RBC 4.65 10^6/uL 4.20-5.40 [facility] ([facility]) Is patient fasting? N MCH 32.3 pg 27.0-34.0 [facility] ([facility]) Is patient fasting? N MCV 95.1 fL 81.0-101 [facility] ([facility]) Is patient fasting? N Hematocrit 44.2 % 37.0-47.0 [facility] ([facility]) Is patient fasting? N Platelets 269 10^3/uL 150-450 [facility] ([facility]) Is patient fasting? N RDW 14.7 % 11.5-14.5 Above high normal [facility] ([facility]) Is patient fasting? N MCHC 33.9 g/dL 31.0-36.0 [facility] ([facility]) Is patient fasting? N MPV 10.3 fL 7.4-10.4 [facility] ([facility]) Is patient fasting? N ID Date Data Source [id number] 12/26/2020 01:36:00 PM EDT [facility] ([facility]) Name Value Range Interpretation Code Description Data Geeta rce(s) Supporting Document(s) Creatine kinase [Enzymatic activity/volume] in Serum or Plasma 221 U/L 30-170 [facility] ([facility]) Is patient fasting? N Cobalamin (Vitamin B12) [Mass/volume] in Serum or Plasma 329 pg/mL 2 32-1245 [facility] ([facility]) Is patient fasting? N Magnesium [Mass/volume] in Serum or Plasma 1.8 mg/dL 1.7-2.2 [facility] ([facility]) Is patient fasting? N Calcidiol [Mass/volume] in Serum or Plasma 21 ng/mL [facility] ([facility]) Is patient fasting? N Folate [Mass/volume] in Serum or Plasma 7.7 ng/mL 5.0-27.2 [facility] ([facility]) Is patient fasting? N ID Date Data Source [id number] 12/26/2020 01:36:00 PM EDT [facility]) Name Value Range Interpretation Code Description Data Geeta rce(s) Supporting Document(s) Sed Rate Reenter 1 [facility] ([facility]) Is patient fasting? N Sed Rate 1 mm/hr 0-20 [facility] ([facility]) Is patient fasting? N ID Date Data Source [id number] 12/26/2020 01:36:00 PM EDT [facility] ([facility]) Name Value Range Interpretation Code Description Data Geeta rce(s) Supporting Document(s) Thyrotropin [Units/volume] in Serum or Plasma 1.56 uIU/mL 0.47-5.01 [facility] ([facility]) Is patient fasting? N Nuclear Ab [Titer] in Serum by Immunofluorescence Laboratory test res ult [facility]) Is patient fasting? N Rheumatoid factor [Units/volume] in Serum or Plasma Laboratory t est result 0-14 [facility] ([facility]) Is patient fasting? N ID Date Data Source [id number] 12/26/2020 01:36:00 PM EDT [facility] ([facility]) Name Value Range Interpretation Code Description Data Geeta rce(s) Supporting Document(s) Comprehensive Metabo Laboratory test result [facility]) Is patient fasting? N Potassium [Moles/volume] in Serum or Plasma 4.3 meq/L 3.6-5.0 [facility] ([facility]) Is patient fasting? N Sodium 138 meq/L 134-153 [facility] ([facility]) Is patient fasting? N Glucose 88 mg/dL 70-99 [facility] ([facility]) Is patient fasting? N Co2 28 meq/L 22-30 [facility] ([facility]) Is patient fasting? N Chloride 103 meq/L 98-107 [facility] ([facility]) Is patient fasting? N BUN 6 mg/dL 7-21 [facility] ([facility]) Is patient fasting? N Creatinine 0.6 mg/dL 0.7-1.5 [facility] ([facility]) Is patient fasting? N BUN/Creat 10 8-27 [facility] ([facility]) Is patient fasting? N Total Protein 6.7 g/dL 6.3-8.2 [facility] ([facility]) Is patient fasting? N Albumin 4.1 g/dL 3.9-5.0 [facility] ([facility]) Is patient fasting? N Globulin [Mass/volume] in Serum by calculation 2.6 GM/DL 2.4-3.2 [facility] ([facility]) Is patient fasting? N Calcium [Mass/volume] in Serum or Plasma 9.1 mg/dL 8.4-10.2 [facility] ([facility]) Is patient fasting? N Albumin/Globulin [Mass Ratio] in Serum or Plasma 1.6 0.8-2.0 [facility]) Is patient fasting? N Total Bili Laboratory test result 0.2-1.3 [facility] ([facility]) Is patient fasting? N Alkaline Phos 51 U/L 38-126 [facility] ([facility]) Is patient fasting? N Sgot/Ast 25 U/L 5-40 [facility] ([facility]) Is patient fasting? N SGPT/Alt 19 U/L 7-56 [facility] ([facility]) Is patient fasting? N Anion Gap 7.0 mmol/L 8.0-16.0 [facility] ([facility]) Is patient fasting? N Non-Aa GFR Laboratory test result [facility] ([facility]) Is patient fasting? N Age 25 yrs [facility] ([facility]) Is patient fasting? N Afr Amer GFR Laboratory test result [facility] ([facility]) Is patient fasting? N ID Date Data Source [id number] 12/26/2020 01:36:00 PM EDT [facility] ([facility]) Name Value Range Interpretation Code Description Data Geeta rce(s) Supporting Document(s) CBC No Diff Laboratory test result [facility] ([facility]) Is patient fasting? N RBC 4.65 10^6/uL 4.20-5.40 [facility] ([facility]) Is patient fasting? N WBC 11.7 10^3/uL 4.2-11.0 [facility] ([facility]) Is patient fasting? N Hematocrit [Volume Fraction] of Blood by Automated count 44.2 % 3 7.0-47.0 [facility] ([facility]) Is patient fasting? N Hemoglobin 15.0 g/dL 12.0-16.0 [facility] ([facility]) Is patient fasting? N MCH 32.3 pg 27.0-34.0 [facility] ([facility]) Is patient fasting? N MCV 95.1 fL 81.0-101 [facility] ([facility]) Is patient fasting? N MCHC 33.9 g/dL 31.0-36.0 [facility] ([facility]) Is patient fasting? N Erythrocyte distribution width [Ratio] by Automated count 14.7 % 11.5-14.5 [facility] ([facility]) Is patient fasting? N Platelets 269 10^3/uL 150-450 [facility] ([facility]) Is patient fasting? N Platelet mean volume [Entitic volume] in Blood by Adeel 10.3 f L 7.4-10.4 [facility] ([facility]) Is patient fasting? N ID Date Data Source [id number] 12/29/2020 08:53:00 AM EDT [facility] Name Value Range Interpretation Code Description Data Geeta rce(s) Supporting Document(s) Nuclear Ab [Titer] in Serum by Immunofluorescence Negative [facility] Negative <1:80 Borderline 1:80 Positive >1:80 ID Date Data Source [id number] 12/27/2020 08:20:00 AM EDT [facility] Value Range Interpretation Code Description Data Geeta rce(s) Supporting Document(s) Calcidiol [Moles/volume] in Serum or Plasma 21 NG/ML [facility] VITAMIN-D(2 5HYDROXY) Deficiency: <=20 ng/ml Insufficiency: 21-29 ng/ml Preferred level: => 30 ng/ml ID Date Data Source [id number] 12/26/2020 06:47:00 PM EDT [facility] Value Range Interpretation Code Description Data Geeta rce(s) Supporting Document(s) Folate [Mass/volume] in Serum or Plasma 7.7 NG/ML 5.0 - 27.2 [facility] ID Date Data Source [id number] 12/26/2020 06:47:00 PM EDT [facility] Name Value Range Interpretation Code Description Data Geeta rce(s) Supporting Document(s) Cobalamin (Vitamin B12) [Mass/volume] in Serum or Plasma 329 PG/ML 232 - 1245 [facility] ID Date Data Source [id number] 12/26/2020 06:47:00 PM EDT [facility] Name Value Range Interpretation Code Description Data Geeta rce(s) Supporting Document(s) Thyrotropin [Units/volume] in Serum or Plasma by Detec tion limit <= 0.05 mIU/L 1.56 uIU/mL 0.47 - 5.01 [facility] ID Date Data Source [id number] 12/26/2020 06:21:00 PM EDT [facility] Value Range Interpretation Code Description Data Geeta rce(s) Supporting Document(s) Erythrocyte sedimentation rate by Westergren method 1 mm/hr 0 - 20 [facility] SED RATE REENTER 1 [facility] ID Date Data Source [id number] 12/26/2020 05:23:00 PM EDT [facility] Name Value Range Interpretation Code Description Data Geeta rce(s) Supporting Document(s) Creatine kinase [Enzymatic activity/volume] in Serum or Plasma 2 21 U/L 30 - 170 H [facility] ID Date Data Source [id number] 12/26/2020 05:23:00 PM EDT [facility] Name Value Range Interpretation Code Description Data Geeta rce(s) Supporting Document(s) RA QUANT <10 IU/mL 0 - 14 [facility] al ID Date Data Source [id number] 12/26/2020 05:23:00 PM EDT [facility] Name Value Range Interpretation Code Description Data Geeta rce(s) Supporting Document(s) Magnesium [Mass/volume] in Serum or Plasma 1.8 MG/DL 1.7 - 2.2 [facility] ID Date Data Source [id number] 12/26/2020 05:22:00 PM EDT [facility] Name Value Range Interpretation Code Description Data Geeta rce(s) Supporting Document(s) COMPREHENSIVE METABOLIC PANEL [facility] COMPREHENSIVE METABOLIC PANEL Sodium [Moles/volume] in Serum or Plasma 138 mEq/L 134 - 153 [facility] Potassium [Moles/volume] in Serum or Plasma 4.3 mEq/L 3.6 - 5.0 [facility] Chloride [Moles/volume] in Serum or Plasma 103 mEq/L 98 - 107 [facility] Carbon dioxide, total [Moles/volume] in Serum or Plasma 28 MEQ/L 22 - 30 [facility] Glucose [Mass/volume] in Serum or Plasma 88 MG/DL 70 - 99 [facility] BUN 6 MG/DL 7 - 21 L [facility] Creatinine [Mass/volume] in Serum or Plasma 0.6 MG/DL 0.7 - 1.5 L [facility] BUN/CREAT 10 8 - 27 [facility] Protein [Mass/volume] in Serum or Plasma 6.7 G/DL 6.3 - 8.2 [facility] Albumin [Mass/volume] in Serum or Plasma 4.1 G/DL 3.9 - 5.0 [facility] Globulin [Mass/volume] in Serum by calculation 2.6 GM/DL 2.4 - 3.2 [facility] A/G RATIO 1.6 0.8 - 2.0 [facility] Calcium [Mass/volume] in Serum or Plasma 9.1 MG/DL 8.4 - 10.2 [facility] Bilirubin.total [Mass/volume] in Serum or Plasma <0.7 MG/DL 0.2 - 1.3 [facility] Alkaline phosphatase [Enzymatic activity/volume] in Serum or Plasma 51 U/L 38 - 126 [facility] Aspartate aminotransferase [Enzymatic activity/volume] in Serum or Plasma 25 U/L 5 - 40 [facility] Alanine aminotransferase [Enzymatic activity/volume] in Seru m or Plasma 19 U/L 7 - 56 [facility] Anion gap 3 in Serum or Plasma 7.0 mmol/L 8.0 - 16.0 L [facility] AGE 25 yrs [facility] al NON-AA GFR >60 mL/min [facility] ital AFR AMER GFR >60 mL/min [facility] Male GFR In terprentation 20-49 yrs >60 mL/min Normal 50-59 yrs >56 mL/min Normal 60-69 yrs >49 mL/min Normal 70-79yrs >42 mL/min Normal 80 and above >35 mL/min Normal Female GFR Interpretation 20-39 yrs >60 mL/min Normal 40-49 yrs >58 mL/min Normal 50-59 yrs >51 mL/min Normal 60-69 yrs >45 mL/min Normal 70-79 yrs >39 mL/min Normal 80 and above >32 mL/min Normal ID Date Data Source [id number] 12/26/2020 05:10:00 PM EDT [facility] Name Value Range Interpretation Code Description Data Geeta rce(s) Supporting Document(s) CBC NO DIFF [facility] ital COMPLETE BLOOD COUNT Leukocytes [#/volume] in Blood by Automated count 11.7 10^3/uL 4.2 - 11.0 H [facility] Erythrocytes [#/volume] in Blood by Automated count 4.65 10^6/uL 4. 20 - 5.40 [facility] Hemoglobin [Mass/volume] in Blood 15.0 g/dL 12.0 - 16.0 [facility] Hematocrit [Volume Fraction] of Blood by Automated count 44.2 % 3 7.0 - 47.0 [facility] Erythrocyte mean corpuscular volume [Entitic volume] by Auto mated count 95.1 fL 81.0 - 101 [facility] Erythrocyte mean corpuscular hemoglobin [Entitic mass] by Automated count 32.3 pg 27.0 - 34.0 [facility] Erythrocyte mean corpuscular hemoglobin concentration [Mass/volume] by Automated count 33.9 g/dL 31.0 - 36.0 [facility] Erythrocyte distribution width [Ratio] by Automated count 14.7 % 11.5 - 14.5 H [facility] Platelets [#/volume] in Blood by Automated count 269 10^3/uL 150 - 45 0 [facility] Platelet mean volume [Entitic volume] in Blood by Automated count 10.3 fL 7.4 - 10.4 [facility] ID Date Data Source [id number] 12/26/2020 01:36:00 PM EDT [facility] ([facility]) Name Value Range Interpretation Code Description Data Geeta rce(s) Supporting Document(s) Sed Rate 1 mm/hr 0-20 [facility] ([facility]) Is patient fasting? N Sed Rate Reenter 1 [facility] ([facility]) Is patient fasting? N ID Date Data Source [id number] 11/13/2020 04:36:00 PM EDT [facility] ([facility]) Name Value Range Interpretation Code Description Data Geeta rce(s) Supporting Document(s) Laboratory test finding (navigational concept) Laboratory test r esult Normal (applies to non-numeric results) [facility] ([facility]) <content>QUANTITATIVE RESULT QU ALITATIVE INTERPRETATION</content>
<content> </content>
<content><5.0 IU/L NEGATIVE</content>
<content>5.0 - 25.0 IU/L INDETERMINATE</content>
<content>>25.0 IU/L POSITIVE</content>
<content></content> ID Date Data Source [id number] 11/01/2020 11:40:00 AM EST [facility] ([facility]) Name Value Range Interpretation Code Description Data Geeta rce(s) Supporting Document(s) Thyrotropin [Units/volume] in Serum or Plasma 1.86 uIU/mL 0.47-5.01 [facility] ([facility]) Is patient fasting? N ID Date Data Source [id number] 11/01/2020 11:40:00 AM EST [facility] ([facility]) Name Value Range Interpretation Code Description Data Geeta rce(s) Supporting Document(s) Comprehensive Metabo Laboratory test result [facility] ([facility]) COMPREHENSIVE METABOLIC PANEL Sodium 139 meq/L 134-153 [facility] ([facility]) Is patient fasting? N Potassium 4.5 meq/L 3.6-5.0 [facility] ([facility]) Is patient fasting? N Chloride 105 meq/L 98-107 [facility] ([facility]) Is patient fasting? N Co2 25 meq/L 22-30 [facility] ([facility]) Is patient fasting? N Glucose 87 mg/dL 70-99 [facility] ([facility]) Is patient fasting? N BUN 10 mg/dL 7-21 [facility] ([facility]) Is patient fasting? N Creatinine 0.6 mg/dL 0.7-1.5 Below low normal [facility] ( [facility]) Is patient fasting? N BUN/Creat 17 8-27 [facility] ([facility]) Is patient fasting? N Total Protein 6.6 g/dL 6.3-8.2 [facility] ([facility]) Is patient fasting? N Albumin 4.3 g/dL 3.9-5.0 [facility] ([facility]) Is patient fasting? N Globulin 2.3 GM/DL 2.4-3.2 Below low normal [facility] ( [facility]) Is patient fasting? N A/G Ratio 1.9 0.8-2.0 [facility] ([facility]) Is patient fasting? N Calcium 8.9 mg/dL 8.4-10.2 [facility] Is patient fasting? N Total Bili Laboratory test result 0.2-1.3 [facility] ([facility]) Is patient fasting? N Alkaline Phos 65 U/L 38-126 [facility] Is patient fasting? N Sgot/Ast 17 U/L 5-40 [facility] Is patient fasting? N SGPT/Alt 12 U/L 7-56 [facility] ([facility]) Is patient fasting? N Anion Gap 9.0 mmol/L 8.0-16.0 [facility]) Is patient fasting? N Age 25 yrs [facility] ([facility]) Is patient fasting? N Non-Aa GFR Laboratory test result [facility] ([facility]) Is patient fasting? N Afr Amer GFR Laboratory test result [facility] ([facility]) Male GFR Interprentation 20-49 yrs >60 mL/min Normal 50-59 yrs >56 mL/min Normal 60-69 yrs >49 mL/min Normal 70-79yrs >42 mL/min Normal 80 and above >35 mL/min Normal Female GFR Interpretation 20-39 yrs >60 mL/min Normal 40-49 yrs >58 mL/min Normal 50-59 yrs >51 mL/min Normal 60-69 yrs >45 mL/min Normal 70-79 yrs >39 mL/min Normal 80 and above >32 mL/min Normal ID Date Data Source [id number] 11/01/2020 11:40:00 AM EST [facility]) Name Value Range Interpretation Code Description Data Geeta rce(s) Supporting Document(s) CBC No Diff Laboratory test result [facility] ([facility]) COMPLETE BLOOD COUNT WBC 8.4 10^3/uL 4.2-11.0 [facility] ([facility]) Is patient fasting? N RBC 4.87 10^6/uL 4.20-5.40 [facility] ([facility]) Is patient fasting? N Hemoglobin 15.5 g/dL 12.0-16.0 [facility] ([facility]) Is patient fasting? N Hematocrit 45.0 % 37.0-47.0 [facility] ([facility]) Is patient fasting? N MCH 31.8 pg 27.0-34.0 [facility] ([facility]) Is patient fasting? N MCV 92.4 fL 81.0-101 [facility] ([facility]) Is patient fasting? N MCHC 34.4 g/dL 31.0-36.0 [facility] ([facility]) Is patient fasting? N RDW 12.9 % 11.5-14.5 [facility] ([facility]) Is patient fasting? N Platelets 260 10^3/uL 150-450 [facility] ([facility]) Is patient fasting? N MPV 11.2 fL 7.4-10.4 Above high normal [facility] ([facility]) Is patient fasting? N ID Date Data Source [id number] 11/01/2020 03:46:00 PM [facility] Name Value Range Interpretation Code Description Data Geeta rce(s) Supporting Document(s) Thyrotropin [Units/volume] in Serum or Plasma by Detec tion limit <= 0.05 mIU/L 1.86 uIU/mL 0.47 - 5.01 [facility] ID Date Data Source [id number] 11/01/2020 03:36:00 PM [facility] Name Value Range Interpretation Code Description Data Geeta rce(s) Supporting Document(s) COMPREHENSIVE METABOLIC PANEL [facility] COMPREHENSIVE METABOLIC PANEL Sodium [Moles/volume] in Serum or Plasma 139 mEq/L 134 - 153 [facility] Potassium [Moles/volume] in Serum or Plasma 4.5 mEq/L 3.6 - 5.0 [facility] Chloride [Moles/volume] in Serum or Plasma 105 mEq/L 98 - 107 [facility] Carbon dioxide, total [Moles/volume] in Serum or Plasma 25 MEQ/L 22 - 30 [facility] Glucose [Mass/volume] in Serum or Plasma 87 MG/DL 70 - 99 [facility] BUN 10 MG/DL 7 - 21 [facility] al Creatinine [Mass/volume] in Serum or Plasma 0.6 MG/DL 0.7 - 1.5 L [facility] BUN/CREAT 17 8 - 27 [facility] [facility] Protein [Mass/volume] in Serum or Plasma 6.6 G/DL 6.3 - 8.2 [facility] Albumin [Mass/volume] in Serum or Plasma 4.3 G/DL 3.9 - 5.0 [facility] Globulin [Mass/volume] in Serum by calculation 2.3 GM/DL 2.4 - 3.2 L [facility] A/G RATIO 1.9 0.8 - 2.0 [facility] Calcium [Mass/volume] in Serum or Plasma 8.9 MG/DL 8.4 - 10.2 [facility] Bilirubin.total [Mass/volume] in Serum or Plasma <0.7 MG/DL 0.2 - 1.3 [facility] Alkaline phosphatase [Enzymatic activity/volume] in Serum or Plasma 65 U/L 38 - 126 [facility] Aspartate aminotransferase [Enzymatic activity/volume] in Serum or Plasma 17 U/L 5 - 40 [facility] Alanine aminotransferase [Enzymatic activity/volume] in Seru m or Plasma 12 U/L 7 - 56 [facility] Anion gap 3 in Serum or Plasma 9.0 mmol/L 8.0 - 16.0 [facility] AGE 25 yrs [facility] al NON-AA GFR >60 mL/min [facility] ital AFR AMER GFR >60 mL/min [facility] Ho spital Male GFR In terprentation 20-49 yrs >60 mL/min Normal 50-59 yrs >56 mL/min Normal 60-69 yrs >49 mL/min Normal 70-79yrs >42 mL/min Normal 80 and above >35 mL/min Normal Female GFR Interpretation 20-39 yrs >60 mL/min Normal 40-49 yrs >58 mL/min Normal 50-59 yrs >51 mL/min Normal 60-69 yrs >45 mL/min Normal 70-79 yrs >39 mL/min Normal 80 and above >32 mL/min Normal ID Date Data Source [id number] 11/01/2020 03:28:00 PM EST [facility] Name Value Range Interpretation Code Description Data Geeta rce(s) Supporting Document(s) CBC NO DIFF [facility] Hosp ital COMPLETE BLOOD COUNT Leukocytes [#/volume] in Blood by Automated count 8.4 10^3/uL 4.2 - 1 1.0 [facility] Erythrocytes [#/volume] in Blood by Automated count 4.87 10^6/uL 4. 20 - 5.40 [facility] Hemoglobin [Mass/volume] in Blood 15.5 g/dL 12.0 - 16.0 [facility] Hematocrit [Volume Fraction] of Blood by Automated count 45.0 % 3 7.0 - 47.0 [facility] Erythrocyte mean corpuscular volume [Entitic volume] by Auto mated count 92.4 fL 81.0 - 101 [facility] Erythrocyte mean corpuscular hemoglobin [Entitic mass] by Automated count 31.8 pg 27.0 - 34.0 [facility] Erythrocyte mean corpuscular hemoglobin concentration [Mass/volume] by Automated count 34.4 g/dL 31.0 - 36.0 [facility] Erythrocyte distribution width [Ratio] by Automated count 12.9 % 11.5 - 14.5 [facility] Platelets [#/volume] in Blood by Automated count 260 10^3/uL 150 - 45 0 [facility] Platelet mean volume [Entitic volume] in Blood by Automated count 11.2 fL 7.4 - 10.4 H [facility] ID Date Data Source [id number] 10/04/2020 12:00:00 AM EST [facility] Name Value Range Interpretation Code Description Data Geeta [facility](s) Supporting Document(s) SARS-CoV2 Rapid Antigen Negative [facility] This lab was reported by [facility] ID Date Data Source [id number] 09/03/2020 12:00:00 AM EST [facility] Name Value Range Interpretation Code Description Data Geeta [facility](s) Supporting Document(s) SARS coronavirus 2 Ag Negative [facility] This lab was ordered by [facility] and reported by [facility] Procedure Social History Code Duration Value Status Description Data Source(s ) Smoking 03/24/2021 12:00:00 AM EDT Heavy tobacco smoker comple jes Heavy tobacco smoker [facility] ([facility]) 01/15/2021 12:00:00 AM EDT Moderate cigarette sm oker (10-19 cigs/day) completed Moderate cigarette smoker (10-19 cigs/day) [facility] Vital Signs ID Date Data Source UNK Name Value Range Interpretation Code Description Data Source(s) Diastolic blood pressure 70 mm[Hg] 70 mm[Hg] [facility] ([facility]) Systolic blood pressure 108 mm[Hg] 108 mm[Hg] M EDENT ([facility]) Respiratory rate 16 /min 16 /min [facility] ( [facility]) Oxygen saturation in Arterial blood by Pulse oximetry 98 % 98 % [facility] ([facility]) Body weight 153.38 [lb_av] 153.38 [lb_av] MEDEN T ([facility]) Body weight 69.571 kg 69.571 kg [facility] ([facility]) Body height 67 [in_i] 67 [in_i] [facility] ([facility]) 5'7" Body mass index (BMI) [Ratio] 24.0 kg/m2 24.0 k g/m2 [facility] ([facility]) Body surface area Derived from formula 1.81 m2 1.81 m2 [facility] ([facility]) Heart rate 112 /min 112 /min [facility] ([facility]) Body temperature 99.1 [degF] 99.1 [degF] [facility] ([facility]) Body mass index (BMI) [Ratio] 24.9 kg/m2 24.9 k g/m2 [facility] ([facility] ) Respiratory rate 12 /min 12 /min [facility] ( [facility] ) Body height 66 [in_i] 66 [in_i] [facility] ([facility], ) 5'6" Body weight 154.00 [lb_av] 154.00 [lb_av] [facility] T ([facility], ) [place] body weight 130 [lb_av] 130 [lb_av] [facility] T ([facility]) Heart rate 106 /min 106 /min [facility] ([facility]) Diastolic blood pressure 80 mm[Hg] 80 mm[Hg] [facility] ([facility]) Systolic blood pressure 118 mm[Hg] 118 mm[Hg] M EDENT ([facility]) Respiratory rate 16 /min 16 /min [facility] ( [facility]) Oxygen saturation in Arterial blood by Pulse oximetry 97 % 97 % [facility] ([facility]) Body weight 158.50 [lb_av] 158.50 [lb_av] [facility] T ([facility]) Body weight 71.896 kg 71.896 kg [facility] ([facility]) Body height 67 [in_i] 67 [in_i] [facility] 5'7" Body mass index (BMI) [Ratio] 24.8 kg/m2 24.8 k g/m2 [facility] ([facility]) Body temperature 98.2 [degF] 98.2 [degF] [facility] ([facility]) Body surface area Derived from formula 1.83 m2 1.83 m2 [facility] ([facility]) Body height 167.64 cm 167.64 cm [facility] Body weight 72.212 kg 72.212 kg [facility] ([facility]) Systolic blood pressure 122 mm[Hg] 122 mm[Hg] N [facility] ([facility]) Diastolic blood pressure 77 mm[Hg] 77 mm[Hg] [facility] ([facility]) Body mass index (BMI) [Ratio] 25.70 kg/m2 Overweight 25.70 kg/m2 [facility] ([facility]) Body mass index (BMI) [Ratio] 25.1 kg/m2 25.1 k g/m2 [facility] ([facility]) Body surface area Derived from formula 1.84 m2 1.84 m2 [facility] ([facility]) Systolic blood pressure--sitting 121 mm[Hg] 121 mm[Hg] [facility] ([facility]) Diastolic blood pressure--sitting 75 mm[Hg] 75 mm[Hg] [facility] ([facility]) Heart rate 95 /min 95 /min [facility] ([facility]) Body temperature 98.4 [degF] 98.4 [degF] [facility] Oral Respiratory rate 20 /min 20 /min [facility] ( [facility]) Oxygen saturation in Arterial blood by Pulse oximetry 96 % 96 % [facility] ([facility]) Body weight 160.00 [lb_av] 160.00 [lb_av] [facility] T ([facility]) Body weight 72.576 kg 72.576 kg [facility] Body height 67 [in_i] 67 [in_i] [facility] ([facility]) 5'7" Body height 167.64 cm 167.64 cm [facility] ([facility] Body weight 74.752 kg 74.752 kg [facility] ([facility]) Systolic blood pressure 100 mm[Hg] 100 mm[Hg] N [facility] ([facility]) Diastolic blood pressure 70 mm[Hg] 70 mm[Hg] [facility] ([facility]) Body mass index (BMI) [Ratio] 26.60 kg/m2 Overweight 26.60 kg/m2 [facility] ([facility]) Body height 167.64 cm 167.64 cm [facility] ([facility]) Body weight 75.841 kg 75.841 kg [facility] ([facility]) Systolic blood pressure 100 mm[Hg] 100 mm[Hg] N [facility] ([facility]) Diastolic blood pressure 60 mm[Hg] 60 mm[Hg] [facility] ([facility]) Body mass index (BMI) [Ratio] 26.99 kg/m2 Overweight 26.99 kg/m2 [facility] ([facility]) Body height 167.64 cm 167.64 cm [facility] ([facility]) Body weight 81.556 kg 81.556 kg [facility] ([facility]) Systolic blood pressure 130 mm[Hg] 130 mm[Hg] N [facility] ([facility]) Diastolic blood pressure 80 mm[Hg] 80 mm[Hg] [facility] ([facility]) Body mass index (BMI) [Ratio] 29.02 kg/m2 Overweight 29.02 kg/m2 [facility] ([facility]) Body height 167.64 cm 167.64 cm [facility] ([facility]) Body weight 62.142 kg 62.142 kg [facility] ([facility]) Systolic blood pressure 122 mm[Hg] 122 mm[Hg] N [facility] ([facility]) Diastolic blood pressure 72 mm[Hg] 72 mm[Hg] [facility] ([facility]) Body mass index (BMI) [Ratio] 22.11 kg/m2 22.11 kg/m2 [facility] ([facility]) Respiratory rate 12 /min 12 /min [facility] ( [facility] ) Body height 66 [in_i] 66 [in_i] [facility] 5'6" Body weight 154.00 [lb_av] 154.00 [lb_av] [facility] T ([facility] ) Body mass index (BMI) [Ratio] 24.9 kg/m2 24.9 k g/m2 [facility] ([facility] [place] body weight 130 [lb_av] 130 [lb_av] [facility] T ([facility] ) Systolic blood pressure 122 mm[Hg] 122 mm[Hg] M EDENT ([facility]) Diastolic blood pressure 84 mm[Hg] 84 mm[Hg] [facility] ([facility]) Body temperature 97.3 [degF] 97.3 [degF] [facility] ([facility]) Body weight 175.25 [lb_av] 175.25 [lb_av] [facility] T ([facility]) Body height 64.5 [in_i] 64.5 [in_i] [facility] 5'4.50" Heart rate 94 /min 94 /min [facility] ([facility]) Respiratory rate 16 /min 16 /min [facility] ( [facility]) Oxygen saturation in Arterial blood by Pulse oximetry 97 % 97 % [facility] ([facility]) Body weight 79.493 kg 79.493 kg [facility] ([facility]) Body mass index (BMI) [Ratio] 29.6 kg/m2 29.6 k g/m2 [facility] ([facility]) Body surface area Derived from formula 1.86 m2 1.86 m2 [facility] ([facility]) Body height 64.5 [in_i] 64.5 [[facility]_i] [facility] 5'4.50" Body mass index (BMI) [Ratio] 27.7 kg/m2 27.7 k g/m2 [facility] ([facility]) Body surface area Derived from formula 1.81 m2 1.81 m2 [facility] Systolic blood pressure 102 mm[Hg] 102 mm[Hg] M EDENT ([facility]) Diastolic blood pressure 70 mm[Hg] 70 mm[Hg] [facility] ([facility]) Heart rate 61 /min 61 /min [facility] ([facility]) Body temperature 98.0 [degF] 98.0 [degF] [facility] ([facility]) Respiratory rate 16 /min 16 /min [facility] ( [facility]) Oxygen saturation in Arterial blood by Pulse oximetry 95 % 95 % [facility] Body weight 164.00 [lb_av] 164.00 [lb_av] [facility] T ([facility]) Body weight 74.390 kg 74.390 kg [facility] Body mass index (BMI) [Ratio] 28.6 kg/m2 28.6 k g/m2 [facility] Body surface area Derived from formula 1.83 m2 1.83 m2 [facility] ([facility]) Systolic blood pressure 120 mm[Hg] 120 mm[Hg] M EDENT ([facility]) Diastolic blood pressure 70 mm[Hg] 70 mm[Hg] [facility] ([facility]) Heart rate 82 /min 82 /min [facility] ([facility]) Body temperature 97.5 [degF] 97.5 [degF] [facility] ([facility]) Respiratory rate 16 /min 16 /min [facility] ( [facility]) Oxygen saturation in Arterial blood by Pulse oximetry 95 % 95 % [facility] ([facility]) Body weight 169.25 [lb_av] 169.25 [lb_av] [facility] T ([facility]) Body weight 76.772 kg 76.772 kg [facility] ([facility]) Body height 64.5 [in_i] 64.5 [in_i] [facility] ([facility]) 5'4.50" Systolic blood pressure 110 mm[Hg] 110 mm[Hg] M EDENT ([facility]) Diastolic blood pressure 79 mm[Hg] 79 mm[Hg] [facility] ([facility], [facility]) Heart rate 98 /min 98 /min [facility] ([facility], [facility]) Respiratory rate 16 /min 16 /min [facility] ( [facility], [facility]) Oxygen saturation in Arterial blood by Pulse oximetry 99 % 99 % [facility] ([facility], [facility]) Body temperature 97.5 [degF] 97.5 [degF] [facility] ([facility], [facility]) Body weight 173.00 [lb_av] 173.00 [lb_av] [facility] T ([facility], [facility]) Systolic blood pressure 128 mm[Hg] 128 mm[Hg] M EDENT ([facility], [facility]) Heart rate 62 /min 62 /min [facility] ([facility], [facility]) Respiratory rate 20 /min 20 /min [facility] ( [facility], [facility]) Oxygen saturation in Arterial blood by Pulse oximetry 98 % 98 % [facility] ([facility], [facility]) Body temperature 98.0 [degF] 98.0 [degF] [facility] ([facility], [facility]) Body weight 173.00 [lb_av] 173.00 [lb_av] MED[facility] T ([facility], [facility]) Body height 66 [in_i] 66 [in_i] [facility] ([facility], [facility]) 5'6" Body mass index (BMI) [Ratio] 27.9 kg/m2 27.9 k g/m2 [facility] ([facility], [facility]) Diastolic blood pressure 79 mm[Hg] 79 mm[Hg] [facility], [facility]) Body height 64.5 [in_i] 64.5 [in_i] [facility] ([facility]) 5'4.50" Body mass index (BMI) [Ratio] 29.9 kg/m2 29.9 k g/m2 [facility] ([facility]) Systolic blood pressure 132 mm[Hg] 132 mm[Hg] M EDENT ([facility]) Diastolic blood pressure 64 mm[Hg] 64 mm[Hg] [facility] ([facility]) Heart rate 83 /min 83 /min [facility] ([facility]) Body temperature 99.7 [degF] 99.7 [degF] [facility] ([facility]) Respiratory rate 18 /min 18 /min [facility] ( [facility]) Oxygen saturation in Arterial blood by Pulse oximetry 97 % 97 % [facility] ([facility]) Body weight 177.00 [lb_av] 177.00 [lb_av] [facility] T ([facility]) Body weight 80.287 kg 80.287 kg [facility] ([facility]) Body surface area Derived from formula 1.87 m2 1.87 m2 [facility] ([facility]) ID Date Data Source [id number] 04/05/2021 11:43:03 PM EDT [facility] Name Value Range Interpretation Code Description Data Source(s) TRANSFER FROM [facility] Patient Treatment Plan of Care Planned Activity Planned Date Details Description Data Source (s) Etonogestrel 68 MG Drug Implant [Nexplanon] 01/31/2021 12:00:00 AM EDT [facility] ([facility]) Acetaminophen 300 MG / Codeine Phosphate 30 MG Oral Ta blet 01/15/2021 12:00:00 AM EDT [facility] Ondansetron 4 MG Oral Tablet 01/15/2021 12:00:00 AM EDT [facility] ([facility]) Ibuprofen 800 MG Oral Tablet 01/15/2021 12:00:00 AM EDT [facility] ([facility]) Misoprostol 0.2 MG Oral Tablet 01/15/2021 12:00:00 AM EDT [facility] ([facility]) Mifepristone 200 MG Oral Tablet [Mifeprex] 01/15/2021 12:00:00 AM E DT [facility] ([facility]) Levetiracetam 500 MG Oral Tablet [Keppra] [facility] ([facility])
--- OUTSIDE RECORDS SUMMARY | 2021-06-25 12:34 | CCD ---
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 [facility]. ID Date Data Source [id number] 04/02/2021 01:22:00 PM EDT [facility] ([facility]) Name Value Range Interpretation Code Description Data Geeta rce(s) Supporting Document(s) Cobalamin (Vitamin B12) [Mass/volume] in Serum or Plasma 446 pg/mL 2 32-1245 [facility] ([facility]) Is patient fasting? N Thyrotropin [Units/volume] in Serum or Plasma 0.88 uIU/mL 0.47-5.01 [facility] ([facility]) Is patient fasting? N ID Date Data Source [id number] 04/02/2021 01:22:00 PM EDT [facility] ([facility]) Name Value Range Interpretation Code Description Data Geeta rce(s) Supporting Document(s) Comprehensive Metabo Laboratory test result [facility] ([facility]) Is patient fasting? N Sodium 136 meq/L 134-153 [facility] ([facility]) Is patient fasting? N Potassium 3.4 meq/L 3.6-5.0 Below low normal [facility] ( [facility]) Is patient fasting? N Chloride 101 meq/L 98-107 [facility] ([facility]) Is patient fasting? N Glucose 129 mg/dL 70-99 Above high normal [facility] ([facility]) Is patient fasting? N Co2 24 meq/L 22-30 [facility] ([facility]) Is patient fasting? N BUN/Creat 23 8-27 [facility] ([facility]) Is patient fasting? N Creatinine 0.4 mg/dL 0.7-1.5 Below low normal [facility] ( [facility]) Is patient fasting? N BUN 9 mg/dL 7-21 [facility] ([facility]) Is patient fasting? N Total Protein 6.8 g/dL 6.3-8.2 [facility] ([facility]) Is patient fasting? N Albumin 3.4 g/dL 3.9-5.0 Below low normal [facility] ( [facility]) Is patient fasting? N A/G Ratio 1.0 0.8-2.0 [facility] ([facility]) Is patient fasting? N Calcium 8.3 mg/dL 8.4-10.2 Below low normal [facility] ( [facility]) Is patient fasting? N Globulin 3.4 GM/DL 2.4-3.2 Above high normal [facility] ([facility]) Is patient fasting? N Total Bili Laboratory test result 0.2-1.3 [place] [facility] ([facility]) Is patient fasting? N Alkaline Phos 72 U/L 38-126 [facility] ([facility]) Is patient fasting? N Sgot/Ast 18 U/L 5-40 [facility] ([facility]) Is patient fasting? N SGPT/Alt 9 U/L 7-56 [facility] ([facility]) Is patient fasting? N Anion Gap 11.0 mmol/L 8.0-16.0 [facility] ([facility]) Is patient fasting? N Non-Aa GFR Laboratory test result [facility] ([facility]) Is patient fasting? N Afr Amer GFR Laboratory test result [facility] ([facility]) Is patient fasting? N Age 25 yrs [facility] ([facility]) Is patient fasting? N ID Date Data Source [id number] 04/02/2021 01:22:00 PM EDT [facility] ([facility]) Name Value Range Interpretation Code Description Data Geeta rce(s) Supporting Document(s) WBC 17.7 10^3/uL 4.2-11.0 Above high normal [facility] ([facility]) Is patient fasting? N CBC No Diff Laboratory test result M [facility] ([facility]) Is patient fasting? N Hemoglobin 13.8 g/dL 12.0-16.0 [facility] ([facility]) Is patient fasting? N RBC 4.42 10^6/uL 4.20-5.40 [facility] ([facility]) Is patient fasting? N MCV 93.4 fL 81.0-101 [facility] ([facility]) Is patient fasting? N Hematocrit 41.3 % 37.0-47.0 [facility] ([facility]) Is patient fasting? N RDW 13.4 % 11.5-14.5 [facility] ([facility]) Is patient fasting? N MCHC 33.4 g/dL 31.0-36.0 [facility] ([facility]) Is patient fasting? N MCH 31.2 pg 27.0-34.0 [facility] ([facility]) Is patient fasting? N MPV 10.6 fL 7.4-10.4 Above high normal [facility] ([facility]) Is patient fasting? N Platelets 366 10^3/uL 150-450 [facility] ([facility]) Is patient fasting? N ID Date Data Source [id number] 04/02/2021 06:59:[address] [facility] Name Value Range Interpretation Code Description Data Geeta rce(s) Supporting Document(s) Cobalamin (Vitamin B12) [Mass/volume] in Serum or Plasma 446 PG/ML 232 - 1245 [facility] ID Date Data Source [id number] 04/02/2021 06:59:[address] [facility] Name Value Range Interpretation Code Description Data Egeta rce(s) Supporting Document(s) Thyrotropin [Units/volume] in Serum or Plasma by Detec tion limit <= 0.05 mIU/L 0.88 uIU/mL 0.47 - 5.01 [facility] ID Date Data Source [id number] 04/02/2021 06:41:[address] [facility] Name Value Range Interpretation Code Description Data Geeta rce(s) Supporting Document(s) COMPREHENSIVE METABOLIC PANEL [facility] COMPREHENSIVE METABOLIC PANEL Sodium [Moles/volume] in Serum or Plasma 136 mEq/L 134 - 153 [facility] Potassium [Moles/volume] in Serum or Plasma 3.4 mEq/L 3.6 - 5.[address] [facility] Chloride [Moles/volume] in Serum or Plasma 101 mEq/L 98 - 107 [facility] Carbon dioxide, total [Moles/volume] in Serum or Plasma 24 MEQ/L 22 - 30 [facility] Glucose [Mass/volume] in Serum or Plasma 129 MG/DL 70 - [address] [facility] B[facility] 9 [facility]DL 7 - [facility] Creat[facility] [Mass/volume] in Serum or Plasma 0.4 MG/DL 0.7 - 1.[address] [facility] BUN/CREAT 23 8 - 27 [facility] Protein [Mass/volume] in Serum or Plasma 6.8 G/DL 6.3 - 8.2 [facility] Albumin [Mass/volume] in Serum or Plasma 3.4 G/DL 3.9 - 5.[address] [facility] Globulin [Mass/volume] in Serum by calculation 3.4 GM/DL 2.4 - 3.[address] [facility] A/G RATIO 1.0 0.8 - 2.0 [facility] Calcium [Mass/volume] in Serum or Plasma 8.3 MG/DL 8.4 - 10.[address] [facility] Bilirubin.total [Mass/volume] in Serum or Plasma <0.7 MG/DL 0.2 - 1.3 [facility] Alkaline phosphatase [Enzymatic activity/volume] in Serum or Plasma 72 U/L 38 - 126 [facility] Aspartate aminotransferase [Enzymatic activity/volume] in Serum or Plasma 18 U/L 5 - 40 [facility] Alanine aminotransferase [Enzymatic activity/volume] in Seru m or Plasma 9 U/L 7 - 56 [facility] Anion gap 3 in Serum or Plasma 11.0 mmol/L 8.0 - 16.0 [facility] AGE 25 yrs [facility] al NON-AA GFR >60 mL/min [facility] AFR AMER GFR >60 mL/min [facility] Ho spital Male GFR In terprentation 20-49 [...] >32 mL/min Normal ID Date Data Source [id number] 04/02/2021 06:41:[address] [facility] Name Value Range Interpretation Code Description Data Geeta rce(s) Supporting Document(s) CBC NO DIFF [facility] ital COMPLETE BLOOD COUNT Leukocytes [#/volume] in Blood by Automated count 17.7 10^3/uL 4.2 - 11.[address] [facility] Erythrocytes [#/volume] in Blood by Automated count 4.42 10^6/uL 4. 20 - 5.40 [facility] Hemoglobin [Mass/volume] in Blood 13.8 g/dL 12.0 - 16.0 [facility] Hematocrit [Volume Fraction] of Blood by Automated count 41.3 % 3 7.0 - 47.0 [facility] Erythrocyte mean corpuscular volume [Entitic volume] by Auto mated count 93.4 fL 81.0 - 101 [facility] Erythrocyte mean corpuscular hemoglobin [Entitic mass] by Automated count 31.2 pg 27.0 - 34.0 [facility] Erythrocyte mean corpuscular hemoglobin concentration [Mass/volume] by Automated count 33.4 g/dL 31.0 - 36.0 [facility] Erythrocyte distribution width [Ratio] by Automated count 13.4 % 11.5 - 14.5 [facility] Platelets [#/volume] in Blood by Automated count 366 10^3/uL 150 - [address] [facility] Platelet mean volume [Entitic volume] in Blood by Automated count 10.6 fL 7.4 - 10.[address] [facility] ID Date Data Source [id number] 03/17/2021 01:45:36 PM EDT [facility] ([facility]) Name Value Range Interpretation Code Description Data Geeta rce(s) Supporting Document(s) NegativeLot: [id number]: 08/22/2022 High Sensitivity Urine Test [facility] ([facility]) ID Date Data Source [id number] 02/14/2021 09:43:00 AM EDT [facility] ([facility]) Name Value Range Interpretation Code Description Data Geeta rce(s) Supporting Document(s) Laboratory test finding (navigational concept) Laboratory test result [facility] ([facility]) {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 Name Value Range Interpretation Code Description Data Geeta rce(s) Supporting Document(s) Drugs identified in Urine FINAL [facility] TOXASSURE SELECT 13 (MW) Test Result Flag [...] test is not intended to distinguish between jxweh-1-zlfkqyznpbcojlqvzxwm, the predominant form of THC in most herbal or marijuana-based products, and oublx-0-cnxlvpc drocannabinol. ==Test Result Flag Units Ref Range Creatinine 29 mg/dL > =20 Declared Medications: The flagging and interpretation on this report are based on the following declared medications. Unexpected results may arise from inaccuracies in the declared medications. Note: The testing scope of this panel does not include following reported medications: Levetiracetam (Keppra) For clinical consultation, please call . Report . [facility] ID Date Data Source [id number] 01/27/2021 12:01:12 PM EDT [facility] ([facility]) Name Value Range Interpretation Code Description Data Geeta rce(s) Supporting Document(s) 13.60 gm/dL Hemoglobin [facility] ([facility]) ID Date Data Source [id number] 01/21/2021 12:00:00 AM EDT [facility] ([facility]) Name Value Range Interpretation Code Description Data Geeta rce(s) Supporting Document(s) 86 SeeComment Abnormal (applies to non-nu meric results) hCG Quantitative - STAT [facility] ([facility]) Gestational Age Expected hCG values (m IU/mL)<1 Week: 5-501-2 Weeks: 50-5002-3 Weeks: 100-29527-7 Weeks: 250-141389-7 Weeks: 7491-059759-1 Weeks: 08896-4677263-9 Weeks: 13109-4358826-0 Months: [id number] < 10 The table above provides only [...] cleared or approved bythe FDA or the pick pulling machine tender of the assay.

Performed by:
RYAN ([id number])

ID Date Data Source [id number] 01/15/2021 10:29:48 AM EDT [facility] ([facility]) Name Value Range Interpretation Code Description Data Geeta rce(s) Supporting Document(s) PositiveLot: [id number]: 07/22/2022 Abnormal (applies to non-numeric results) High Sensitivity Urine Test [facility] ([facility]) ID Date Data Source [id number] 01/15/2021 10:19:40 AM EDT [facility] ([facility]) Name Value Range Interpretation Code Description Data Geeta rce(s) Supporting Document(s) 14.70 gm/dL Hemoglobin [facility] ([facility]) ID Date Data Source [id number] 01/15/2021 12:00:00 AM EDT [facility] ([facility]) Name Value Range Interpretation Code Description Data Geeta rce(s) Supporting Document(s) Negative Normal (applies to non-numeric resul ts) Urine CT/GC Combo - GC [facility] ([facility]) : Yes Performed by: RYAN ([id number]) ID Date Data Source [id number] 01/15/2021 12:00:00 AM EDT [facility] ([facility]) Name Value Range Interpretation Code Description Data Geeta rce(s) Supporting Document(s) Negative Normal (applies to non-numeric resul ts) Urine CT/GC Combo - CT [facility] ([facility]) ID Date Data Source [id number] 01/15/2021 12:00:00 AM EDT [facility] ([facility]) Name Value Range Interpretation Code Description Data Geeta rce(s) Supporting Document(s) HIV-1/2 Non-reactive Normal (applies to n on-numeric results) HIV-1/HIV-2 Ag/Ab [facility] ([facility]) The HIV Antigen (Ag)/Antibody (Ab) Combo ChemiluminescentMicroparticle Immunoassay (CMIA) is used for the simultaneousdetection of both the HIV-1 p24 Antigen and Antibodyto HIV-1 and for the Antibody to HIV-2. Performed by: RYAN ([id number]) ID Date Data Source [id number] 01/15/2021 12:00:00 AM EDT [facility] ([facility]) Name Value Range Interpretation Code Description Data Geeta e(s) Supporting Document(s) RH (D) Positive Rh Type [facility] ([facility]) This assay does not detect weak D.Not al l anti-D reagents detect the same partial or weak expressions of D.Therefore, depending on the reagent used for testing, the interpretation ofthe D antigen may be different from one laboratory to another or fromhistorical records.Patients should be tested for the presence of weak D if clinically indicated.: Yes Performed by: RYAN ([id number]) ID Date Data Source [id number] 01/15/2021 12:00:00 AM EDT [facility] ([facility]) Name Value Range Interpretation Code Description Data Geeta rce(s) Supporting Document(s) 4380 SeeComment Abnormal (applies to non-numeri c results) hCG Quantitative [facility] ([facility]) Gestational Age Expected hCG values (m IU/mL)<1 Week: 5-501-2 Weeks: 50-5002-3 Weeks: 100-76538-0 Weeks: 659-951745-2 Weeks: 8172-639546-5 Weeks: 35544-6121294-7 Weeks: 98470-0002551-0 Months: [id number]- [id number] < 10 The table above provides only [...] cleared or approved bythe FDA or the pick pulling machine tender of the assay.

Performed by:
CDKaro ([id number])

ID Date Data Source [id number] 01/05/2021 08:33:00 PM EDT [facility] Name Value Range Interpretation Code Description Data Geeta rce(s) Supporting Document(s) SARS-CoV-2 (COVID 19) NEGATIVE - SARS-CoV-2 (COVID19) [facility] This lab was ordered by [facility] a nd reported by [facility]. ID Date Data Source [id number] 01/05/2021 01:04:00 PM EDT [facility] ([facility]) Name Value Range Interpretation Code Description Data Geeta rce(s) Supporting Document(s) Barbiturates Urine Laboratory test result Normal (applies to non-numeric results) [facility] ([facility]) Amphetamines Level Urine Laboratory test result Normal (applies to non-numeric results) [facility] ([facility]) Benzodiazepines Urine Laboratory test result Nor mal (applies to non-numeric results) [facility] ([facility]) Cannabinoids Urine Laboratory test result Above high suma l [facility] ([facility]) Cocaine Metabolite Urine Laboratory test result Normal (applies to non-numeric results) [facility] ([facility]) Methadone Urine Laboratory test result Normal (a pplies to non-numeric results) [facility] ([facility]) Opiates Urine Laboratory test result Normal (applies t o non-numeric results) [facility] Phencyclidine Urine Laboratory test result Suma l (applies to non-numeric results) [facility] ALL PRESUMPTIVE POSITIVE FINDINGS AR E [...] CALL THE LAB. ID Date Data Source [id number] 01/05/2021 01:04:00 PM EDT [facility] ([facility] ) Name Value Range Interpretation Code Description Data Geeta rce(s) Supporting Document(s) Amphetamines Level Urine Laboratory test result [facility] ([facility] ) Benzodiazepines Urine Laboratory test result [facility] ([facility]) Barbiturates Urine Laboratory test result [facility] ([facility] ) Cocaine Metabolite Urine Laboratory test result [facility] ([facility]) Cannabinoids Urine Laboratory test result [facility] ([facility]) Methadone Urine Laboratory test result [facility] ([facility]) Opiates Urine Laboratory test result [facility] ([facility] ) Phencyclidine Urine Laboratory test result [facility] ([facility]) ALL PRESUMPTIVE POSITIVE FINDINGS AR E [...] CALL THE LAB. ID Date Data Source [id number] 01/05/2021 11:15:00 AM EDT [facility] ([facility]) Name Value Range Interpretation Code Description Data Geeta rce(s) Supporting Document(s) Choriogonadotropin.beta subunit ( test) [Pres ence] in Serum or Plasma Laboratory test result Abnormal (applies to non-numeric results) [facility] ([facility]) Choriogonadotropin.beta subunit [Moles/volume] in Serum or Plasm a 142 MIU/ML Normal (applies to non-numeric results) [facility] ([facility]) GESTATIONAL AGE APPROXIMATE HCG RANGE (MIU/ML) [...] or monitoring the treatment of cancer patients. [employer] methodology. ID Date Data Source [id number] 01/05/2021 11:15:00 AM EDT [facility] ([facility]) Name Value Range Interpretation Code Description Data Geeta rce(s) Supporting Document(s) Glucose, Fasting 100 mg/dL 70-100 Normal (applies to non-numeric results) [facility] ([facility]) Glomerular Filtration Rate Laboratory test result Normal (applies to non- numeric results) [facility]) <content>Units are mL/min/1.73 m2</content>
<content></content>
<content>Chronic Kidney Disease Staging per NKF:</content>
<content></content>
<content>Stage I & II GFR >=60 Normal to Mildly Decreased</content>
<content>Stage III GFR 30- 59 Moderately Decreased</content>
<content>Stage IV GFR 15-29 Severely Decreased</content>
<content>Stage V GFR <15 Very Little GFR Left</content>
<content>ESRD GFR <15 on INTERNATIONAL EXCHANGE COORDINATOR</content>
<content></content> Blood Urea Nitrogen 13 mg/dL 7-18 Normal (applies to non-nume clayton results) [facility] ([facility]) Creatinine For GFR 0.73 mg/dL 0.55-1.30 Normal (applies to non -numeric results) [facility] ([facility]) Sodium Level 139 meq/L 136-145 Normal (applies to non-numeric res ults) [facility] ([facility]) Potassium Serum 3.8 meq/L 3.5-5.1 Normal (applies to non-numeric results) [facility] ([facility]) Chloride Level 109 meq/L 98-107 Above high normal [facility] ([facility]) Carbon Dioxide Level 27 meq/L 21-32 Normal (applies to non-num adi results) [facility] ([facility]) Anion Gap 3 meq/L 8-16 Below low [facility] Ast/Sgot 12 U/L 7-37 Normal (applies to non-numeric resul ts) [facility] ([facility]) Calcium Level 8.3 mg/dL 8.5-10.1 Below low normal [facility] ([facility]) Alt/SGPT 19 U/L 12-78 Normal (applies to non-numeric resul ts) [facility] ([facility]) Alkaline Phosphatase 54 U/L 45-117 Normal (applies to non-num adi results) [facility] ([facility]) Bilirubin,Total 0.6 mg/dL 0.2-1.0 Normal (applies to non-numeric results) [facility] ([facility]) Total Protein 7.5 GM/DL 6.4-8.2 Normal (applies to non-numeric re sults) [facility] Albumin 3.7 GM/DL 3.2-5.2 Normal (applies to non-numeric resul ts) [facility] ([facility]) Albumin/Globulin Ratio 1.0 1.2-2.2 Below low normal [facility] ([facility]) ID Date Data Source [id number] 01/05/2021 11:15:00 AM EDT [facility] ([facility]) Name Value Range Interpretation Code Description Data Geeta rce(s) Supporting Document(s) White Blood Count 14.4 10 4.0-10.0 Above high normal [facility] ([facility]) Red Blood Count 4.94 10 4.00-5.40 Normal (applies to non-numeric results) [facility]) Hematocrit 46.8 % 36.0-47.0 Normal (applies to non-numeric resul ts) [facility] Hemoglobin 15.7 g/dL 12.0-15.5 Above high normal [facility] ([facility]) Mean Corpuscular Hemoglobin 31.8 pg 27.0-33.0 Norm al (applies to non-numeric results) [facility]) Mean Corpuscular Volume 94.7 fl 80.0-96.0 Normal ( applies to non-numeric results) [facility] ([facility]) Platelet Count, Automated 322 10 150-450 Normal (applies to non-numeric results) [facility]) Mean Corpuscular HGB Conc 33.5 g/dL 32.0-36.5 Normal (applies to non-numeric results) [facility]) Red Cell Distribution Width 14.2 % 11.5-14.5 Norm al (applies to non-numeric results) [facility]) Nucleated Red Blood Cell % 0.0 % 0-0 Normal (applies to n on-numeric results) [facility]) ID Date Data Source [id number] 01/05/2021 11:15:00 AM EDT [facility] ([facility], ) Name Value Range Interpretation Code Description Data Geeta rce(s) Supporting Document(s) Choriogonadotropin.beta subunit ( test) [Pres ence] in Serum or Plasma Laboratory test result Abnormal (applies to non-numeric results) [facility] ([facility], ) Choriogonadotropin.beta subunit [Moles/volume] in Serum or Plasm a 142 MIU/ML [facility] ([facility], ) GESTATIONAL AGE APPROXIMATE HCG [...] monitoring the treatment of cancer patients. Siemens Gina Alexander [employer] methodology. ID Date Data Source [id number] 01/05/2021 11:15:00 AM EDT [facility] ([facility], ) Name Value Range Interpretation Code Description Data Geeta rce(s) Supporting Document(s) Glucose, Fasting 100 mg/dL 70-100 [facility] ([facility], ) Creatinine For GFR 0.73 mg/dL 0.55-1.30 [facility] ([facility], ) Blood Urea Nitrogen 13 mg/dL 7-18 [facility] ([facility], ) Glomerular Filtration Rate Laboratory test result [facility] ([facility], ) <content>Units are mL/min/1.73 m2</content>
<content></content>
<content>Chronic Kidney Disease Staging per NKF:</content>
<content></content>
<content>Stage I & II GFR >=60 Normal to Mildly Decreased</content>
<content>Stage III GFR 30- 59 Moderately Decreased</content>
<content>Stage IV GFR 15-29 Severely Decreased</content>
<content>Stage V GFR <15 Very Little GFR Left</content>
<content>ESRD GFR <15 on INTERNATIONAL EXCHANGE COORDINATOR</content>
<content></content>
<content></content> Sodium Level 139 meq/L 136-145 [facility] ([facility], ) Chloride Level 109 meq/L 98-107 [facility] ([facility], ) Potassium Serum 3.8 meq/L 3.5-5.1 [facility] ([facility]) Carbon Dioxide Level 27 meq/L 21-32 [facility] ([facility], ) Anion Gap 3 meq/L 8-16 [facility] ([facility]) Calcium Level 8.3 mg/dL 8.5-10.1 [facility] ([facility], ) Alt/SGPT 19 U/L 12-78 [facility] ([facility]) Ast/Sgot 12 U/L 7-37 [facility] ([facility]) Alkaline phosphatase [Enzymatic activity/volume] in Serum or Plasma 54 U/L 45-117 [facility] ([facility]) Bilirubin,Total 0.6 mg/dL 0.2-1.0 [facility] ([facility]) Total Protein 7.5 GM/DL 6.4-8.2 [facility] ([facility], ) Albumin 3.7 GM/DL 3.2-5.2 [facility] ([facility]) Albumin/Globulin Ratio 1.0 1.2-2.2 [facility] ([facility]) ID Date Data Source [id number] 01/05/2021 11:15:00 AM EDT [facility] ([facility]) Name Value Range Interpretation Code Description Data Geeta rce(s) Supporting Document(s) White Blood Count 14.4 10 4.0-10.0 [facility] ([facility], ) Hemoglobin 15.7 g/dL 12.0-15.5 [facility] ([facility]) Red Blood Count 4.94 10 4.00-5.40 [facility] ([facility]) Hematocrit [Volume Fraction] of Blood by Automated count 46.8 % 3 6.0-47.0 [facility] ([facility]) Mean Corpuscular Volume 94.7 fl 80.0-96.0 [facility] ([facility], ) Mean Corpuscular Hemoglobin 31.8 pg 27.0-33.0 [facility] ([facility]) Mean Corpuscular HGB Conc 33.5 g/dL 32.0-36.5 [facility] ([facility], ) Red Cell Distribution Width 14.2 % 11.5-14.5 [facility] ([facility], ) Platelet Count, Automated 322 10 150-450 [facility] ([facility]) Nucleated Red Blood Cell % 0.0 % 0-0 [facility] ([facility], ) ID Date Data Source [id number] 12/26/2020 01:36:00 PM EDT [facility] ([facility]) Name Value Range Interpretation Code Description Data Geeta rce(s) Supporting Document(s) Cobalamin (Vitamin B12) [Mass/volume] in Serum or Plasma 329 pg/mL 2 32-1245 [facility] ([facility]) Is patient fasting? N Creatine kinase [Enzymatic activity/volume] in Serum or Plasma 2 21 U/L 30-170 Above high normal [facility] ([facility]) Is patient fasting? N Folate [Mass/volume] in Serum or Plasma 7.7 ng/mL 5.0-27.2 [facility] ([facility]) Is patient fasting? N Calcidiol [Mass/volume] in Serum or Plasma 21 ng/mL [facility] ([facility]) Is patient fasting? N Magnesium [Mass/volume] in Serum or Plasma 1.8 mg/dL 1.7-2.2 [facility] ([facility]) Is patient fasting? N ID Date Data Source [id number] 12/26/2020 01:36:00 PM EDT [facility] ([facility]) Name Value Range Interpretation Code Description Data Geeta rce(s) Supporting Document(s) Thyrotropin [Units/volume] in Serum or Plasma 1.56 uIU/mL 0.47-5.01 [facility] ([facility]) Is patient fasting? N Nuclear Ab [Titer] in Serum by Immunofluorescence Laboratory test res ult [facility] ([facility]) Is patient fasting? N Rheumatoid factor [Units/volume] in Serum or Plasma Laboratory t est result 0-14 [facility] ([facility]) Is patient fasting? N ID Date Data Source [id number] 12/26/2020 01:36:00 PM EDT [facility] ([facility]) Name Value Range Interpretation Code Description Data Geeta rce(s) Supporting Document(s) Comprehensive Metabo Laboratory test result [facility] ([facility]) Is patient fasting? N Sodium 138 meq/L 134-153 [facility] ([facility]) Is patient fasting? N Chloride 103 meq/L 98-107 [facility] ([facility]) Is patient fasting? N Potassium 4.3 meq/L 3.6-5.0 [facility] ([facility]) Is patient fasting? N Co2 28 meq/L 22-30 [facility] ([facility]) Is patient fasting? N Creatinine 0.6 mg/dL 0.7-1.5 Below low normal [facility] ( [facility]) Is patient fasting? N BUN 6 mg/dL 7-21 Below low normal [facility] ([facility]) Is patient fasting? N Glucose 88 mg/dL 70-99 [facility] ([facility]) Is patient fasting? N BUN/Creat 10 8-27 [facility] ([facility]) Is patient fasting? N Total Protein 6.7 g/dL 6.3-8.2 [facility] ([facility]) Is patient fasting? N Globulin 2.6 GM/DL 2.4-3.2 [facility] ([facility]) Is patient fasting? N Albumin 4.1 g/dL 3.9-5.0 [facility] ([facility]) Is patient fasting? N A/G Ratio 1.6 0.8-2.0 [facility] ([facility]) Is patient fasting? N Total Bili Laboratory test result 0.2-1.3 [facility] ([facility]) Is patient fasting? N Calcium 9.1 mg/dL 8.4-10.2 [facility] ([facility]) Is patient fasting? N Alkaline Phos 51 U/L 38-126 [facility] ([facility]) Is patient fasting? N Sgot/Ast 25 U/L 5-40 [facility] ([facility]) Is patient fasting? N Anion Gap 7.0 mmol/L 8.0-16.0 Below low normal [facility] ( [facility]) Is patient fasting? N SGPT/Alt 19 U/L 7-56 [facility] ([facility]) Is patient fasting? N Non-Aa GFR Laboratory test result [facility] ([facility]) Is patient fasting? N Age 25 yrs [facility] ([facility]) Is patient fasting? N Afr Amer GFR Laboratory test result [facility] ([facility]) Is patient fasting? N ID Date Data Source [id number] 12/26/2020 01:36:00 PM EDT [facility] ([facility]) Name Value Range Interpretation Code Description Data Geeta rce(s) Supporting Document(s) CBC No Diff Laboratory test result [facility] ([facility]) Is patient fasting? N WBC 11.7 10^3/uL 4.2-11.0 Above high normal [facility] ([facility]) Is patient fasting? N Hemoglobin 15.0 g/dL 12.0-16.0 [facility] ([facility]) Is patient fasting? N RBC 4.65 10^6/uL 4.20-5.40 [facility] ([facility]) Is patient fasting? N MCH 32.3 pg 27.0-34.0 [facility] ([facility]) Is patient fasting? N MCV 95.1 fL 81.0-101 [facility] ([facility]) Is patient fasting? N Hematocrit 44.2 % 37.0-47.0 [facility] ([facility]) Is patient fasting? N Platelets 269 10^3/uL 150-450 [facility] ([facility]) Is patient fasting? N RDW 14.7 % 11.5-14.5 Above high normal [facility] ([facility]) Is patient fasting? N MCHC 33.9 g/dL 31.0-36.0 [facility] ([facility]) Is patient fasting? N MPV 10.3 fL 7.4-10.4 [facility] ([facility]) Is patient fasting? N ID Date Data Source [id number] 12/26/2020 01:36:00 PM EDT [facility] ([facility]) Name Value Range Interpretation Code Description Data Geeta rce(s) Supporting Document(s) Creatine kinase [Enzymatic activity/volume] in Serum or Plasma 221 U/L 30-170 [facility] ([facility]) Is patient fasting? N Cobalamin (Vitamin B12) [Mass/volume] in Serum or Plasma 329 pg/mL 2 32-1245 [facility] ([facility]) Is patient fasting? N Magnesium [Mass/volume] in Serum or Plasma 1.8 mg/dL 1.7-2.2 [facility] ([facility]) Is patient fasting? N Calcidiol [Mass/volume] in Serum or Plasma 21 ng/mL [facility] ([facility]) Is patient fasting? N Folate [Mass/volume] in Serum or Plasma 7.7 ng/mL 5.0-27.2 [facility] ([facility]) Is patient fasting? N ID Date Data Source [id number] 12/26/2020 01:36:00 PM EDT [facility] ([facility]) Name Value Range Interpretation Code Description Data Geeta rce(s) Supporting Document(s) Sed Rate Reenter 1 [facility] ([facility]) Is patient fasting? N Sed Rate 1 mm/hr 0-20 [facility] ([facility]) Is patient fasting? N ID Date Data Source [id number] 12/26/2020 01:36:00 PM EDT [facility] ([facility]) Name Value Range Interpretation Code Description Data Geeta rce(s) Supporting Document(s) Thyrotropin [Units/volume] in Serum or Plasma 1.56 uIU/mL 0.47-5.01 [facility] ([facility]) Is patient fasting? N Nuclear Ab [Titer] in Serum by Immunofluorescence Laboratory test res ult [facility] ([facility]) Is patient fasting? N Rheumatoid factor [Units/volume] in Serum or Plasma Laboratory t est result 0-14 [facility] ([facility]) Is patient fasting? N ID Date Data Source [id number] 12/26/2020 01:36:00 PM EDT [facility] ([facility]) Name Value Range Interpretation Code Description Data Geeta rce(s) Supporting Document(s) Comprehensive Metabo Laboratory test result [facility] ([facility]) Is patient fasting? N Potassium [Moles/volume] in Serum or Plasma 4.3 meq/L 3.6-5.0 [facility] ([facility]) Is patient fasting? N Sodium 138 meq/L 134-153 [facility] ([facility]) Is patient fasting? N Glucose 88 mg/dL 70-99 [facility] ([facility]) Is patient fasting? N Co2 28 meq/L 22-30 [facility] ([facility]) Is patient fasting? N Chloride 103 meq/L 98-107 [facility] ([facility]) Is patient fasting? N BUN 6 mg/dL 7-21 [facility] ([facility]) Is patient fasting? N Creatinine 0.6 mg/dL 0.7-1.5 [facility] ([facility]) Is patient fasting? N BUN/Creat 10 8-27 [facility] ([facility]) Is patient fasting? N Total Protein 6.7 g/dL 6.3-8.2 [facility] ([facility]) Is patient fasting? N Albumin 4.1 g/dL 3.9-5.0 [facility] ([facility]) Is patient fasting? N Globulin [Mass/volume] in Serum by calculation 2.6 GM/DL 2.4-3.2 [facility] ([facility]) Is patient fasting? N Calcium [Mass/volume] in Serum or Plasma 9.1 mg/dL 8.4-10.2 [facility] ([facility]) Is patient fasting? N Albumin/Globulin [Mass Ratio] in Serum or Plasma 1.6 0.8-2.0 [facility] ([facility]) Is patient fasting? N Total Bili Laboratory test result 0.2-1.3 [facility] ([facility]) Is patient fasting? N Alkaline Phos 51 U/L 38-126 [facility] ([facility]) Is patient fasting? N Sgot/Ast 25 U/L 5-40 [facility] ([facility]) Is patient fasting? N SGPT/Alt 19 U/L 7-56 [facility] ([facility]) Is patient fasting? N Anion Gap 7.0 mmol/L 8.0-16.0 [facility] ([facility]) Is patient fasting? N Non-Aa GFR Laboratory test result [facility] ([facility]) Is patient fasting? N Age 25 yrs [facility] ([facility]) Is patient fasting? N Afr Amer GFR Laboratory test result [facility] ([facility]) Is patient fasting? N ID Date Data Source [id number] 12/26/2020 01:36:00 PM EDT [facility] ([facility]) Name Value Range Interpretation Code Description Data Geeta rce(s) Supporting Document(s) CBC No Diff Laboratory test result [facility] ([facility]) Is patient fasting? N RBC 4.65 10^6/uL 4.20-5.40 [facility] ([facility]) Is patient fasting? N WBC 11.7 10^3/uL 4.2-11.0 [facility] ([facility]) Is patient fasting? N Hematocrit [Volume Fraction] of Blood by Automated count 44.2 % 3 7.0-47.0 [facility] ([facility]) Is patient fasting? N Hemoglobin 15.0 g/dL 12.0-16.0 [facility] ([facility]) Is patient fasting? N MCH 32.3 pg 27.0-34.0 [facility] ([facility]) Is patient fasting? N MCV 95.1 fL 81.0-101 [facility] ([facility]) Is patient fasting? N MCHC 33.9 g/dL 31.0-36.0 [facility] ([facility]) Is patient fasting? N Erythrocyte distribution width [Ratio] by Automated count 14.7 % 11.5-14.5 [facility] ([facility]) Is patient fasting? N Platelets 269 10^3/uL 150-450 [facility] ([facility]) Is patient fasting? N Platelet mean volume [Entitic volume] in Blood by Adeel 10.3 f L 7.4-10.4 [facility] ([facility]) Is patient fasting? N ID Date Data Source [id number] 12/29/2020 08:53:[address] [facility] Name Value Range Interpretation Code Description Data Geeta rce(s) Supporting Document(s) Nuclear Ab [Titer] in Serum by Immunofluorescence Negative [facility] Negative <1:80 Borderline 1:80 Positive >1:80 ID Date Data Source [id number] 12/27/2020 08:20:00 AM EDT [facility] Value Range Interpretation Code Description Data Geeta rce(s) Supporting Document(s) Calcidiol [Moles/volume] in Serum or Plasma 21 NG/ML [facility] VITAMIN-D(2 5HYDROXY) Deficiency: <=20 ng/ml Insufficiency: 21-29 ng/ml Preferred level: => 30 ng/ml ID Date Data Source [id number] 12/26/2020 06:47:00 PM EDT [facility] Value Range Interpretation Code Description Data Geeta rce(s) Supporting Document(s) Folate [Mass/volume] in Serum or Plasma 7.7 NG/ML 5.0 - 27.2 [facility] ID Date Data Source [id number] 12/26/2020 06:47:00 PM EDT [facility] Value Range Interpretation Code Description Data Geeta rce(s) Supporting Document(s) Cobalamin (Vitamin B12) [Mass/volume] in Serum or Plasma 329 PG/ML 232 - 1245 [facility] ID Date Data Source [id number] 12/26/2020 06:47:00 PM EDT [facility] Value Range Interpretation Code Description Data Geeta rce(s) Supporting Document(s) Thyrotropin [Units/volume] in Serum or Plasma by Detec tion limit <= 0.05 mIU/L 1.56 uIU/mL 0.47 - 5.01 [facility] ID Date Data Source [id number] 12/26/2020 06:21:00 PM EDT [facility] Value Range Interpretation Code Description Data Geeta rce(s) Supporting Document(s) Erythrocyte sedimentation rate by Westergren method 1 mm/hr 0 - 20 [facility] SED RATE REENTER 1 [facility] ID Date Data Source [id number] 12/26/2020 05:23:00 PM EDT [facility] Name Value Range Interpretation Code Description Data Geeta rce(s) Supporting Document(s) Creatine kinase [Enzymatic activity/volume] in Serum or Plasma 2 21 U/L 30 - [address] [facility] ID Date Data Source [id number] 12/26/2020 05:23:[address] [facility] Name Value Range Interpretation Code Description Data Geeta rce(s) Supporting Document(s) RA QUANT <10 IU/mL 0 - 14 [facility] al ID Date Data Source [id number] 12/26/2020 05:23:[address] [facility] Name Value Range Interpretation Code Description Data Geeta rce(s) Supporting Document(s) Magnesium [Mass/volume] in Serum or Plasma 1.8 MG/DL 1.7 - 2.2 [facility] ID Date Data Source [id number] 12/26/2020 05:22:[address] [facility] Name Value Range Interpretation Code Description Data Geeta rce(s) Supporting Document(s) COMPREHENSIVE METABOLIC PANEL [facility] COMPREHENSIVE METABOLIC PANEL Sodium [Moles/volume] in Serum or Plasma 138 mEq/L 134 - 153 [facility] Potassium [Moles/volume] in Serum or Plasma 4.3 mEq/L 3.6 - 5.0 [facility] Chloride [Moles/volume] in Serum or Plasma 103 mEq/L 98 - 107 [facility] Carbon dioxide, total [Moles/volume] in Serum or Plasma 28 MEQ/L 22 - 30 [facility] Glucose [Mass/volume] in Serum or Plasma 88 MG/DL 70 - 99 [facility] BUN 6 MG/DL 7 - 21 L [facility] Creatinine [Mass/volume] in Serum or Plasma 0.6 MG/DL 0.7 - 1.[address] [facility] BUN/CREAT 10 8 - 27 [facility] Protein [Mass/volume] in Serum or Plasma 6.7 G/DL 6.3 - 8.2 [facility] Albumin [Mass/volume] in Serum or Plasma 4.1 G/DL 3.9 - 5.0 [facility] Globulin [Mass/volume] in Serum by calculation 2.6 GM/DL 2.4 - 3.2 [facility] A/G RATIO 1.6 0.8 [facility] Calcium [Mass/volume] in Serum or Plasma 9.1 MG/DL 8.4 - 10.2 [facility] Bilirubin.total [Mass/volume] in Serum or Plasma <0.7 MG/DL 0.2 - 1.3 [facility] Alkaline phosphatase [Enzymatic activity/volume] in Serum or Plasma 51 U/L 38 - 126 [facility] Aspartate aminotransferase [Enzymatic activity/volume] in Serum or Plasma 25 U/L 5 - 40 [facility] Alanine aminotransferase [Enzymatic activity/volume] in Seru m or Plasma 19 U/L 7 - 56 [facility] Anion gap 3 in Serum or Plasma 7.0 mmol/L 8.0 - 16.[address] [facility] AGE 25 yrs [facility] al NON-AA GFR >60 mL/min [facility] ital AFR AMER GFR >60 mL/min [facility] Ho spital Male GFR In terprentation 20-49 [...] >32 mL/min Normal ID Date Data Source [id number] 12/26/2020 05:10:[address] [facility] Name Value Range Interpretation Code Description Data Geeta rce(s) Supporting Document(s) CBC NO DIFF [facility] ital COMPLETE BLOOD COUNT Leukocytes [#/volume] in Blood by Automated count 11.7 10^3/uL 4.2 - 11.[address] [facility] Erythrocytes [#/volume] in Blood by Automated count 4.65 10^6/uL 4. 20 - 5.40 [facility] Hemoglobin [Mass/volume] in Blood 15.0 g/dL 12.0 - 16.0 [facility] Hematocrit [Volume Fraction] of Blood by Automated count 44.2 % 3 7.0 - 47.0 [facility] Erythrocyte mean corpuscular volume [Entitic volume] by Auto mated count 95.1 fL 81.0 - 101 [facility] Erythrocyte mean corpuscular hemoglobin [Entitic mass] by Automated count 32.3 pg 27.0 - 34.0 [facility] Erythrocyte mean corpuscular hemoglobin concentration [Mass/volume] by Automated count 33.9 g/dL 31.0 - 36.0 [facility] Erythrocyte distribution width [Ratio] by Automated count 14.7 % 11.5 - 14.[address] [facility] Platelets [#/volume] in Blood by Automated count 269 10^3/uL 150 - [address] [facility] Platelet mean volume [Entitic volume] in Blood by Automated count 10.3 fL 7.4 - 10.4 [facility] ID Date Data Source [id number] 12/26/2020 01:36:00 PM EDT [facility] ([facility]) Name Value Range Interpretation Code Description Data Geeta rce(s) Supporting Document(s) Sed Rate 1 mm/hr 0-20 [facility] ([facility]) Is patient fasting? N Sed Rate Reenter 1 [facility] ([facility]) Is patient fasting? N ID Date Data Source [id number] 11/13/2020 04:36:00 PM EDT [facility] ([facility]) Name Value Range Interpretation Code Description Data Geeta rce(s) Supporting Document(s) Laboratory test finding (navigational concept) Laboratory test r esult Normal (applies to non-numeric results) [facility] ([facility]) <content>QUANTITATIVE RESULT QU ALITATIVE INTERPRETATION</content>
<content> </content>
<content><5.0 IU/L NEGATIVE</content>
<content>5.0 - 25.0 IU/L INDETERMINATE</content>
<content>>25.0 IU/L POSITIVE</content>
<content></content> ID Date Data Source [id number] 11/01/2020 11:40:00 AM EST [facility] ([facility]) Name Value Range Interpretation Code Description Data Geeat rce(s) Supporting Document(s) Thyrotropin [Units/volume] in Serum or Plasma 1.86 uIU/mL 0.47-5.01 [facility] ([facility]) Is patient fasting? N ID Date Data Source [id number] 11/01/2020 11:40:00 AM EST [facility] ([facility]) Name Value Range Interpretation Code Description Data Geeta rce(s) Supporting Document(s) Comprehensive Metabo Laboratory test result [facility] ([facility]) COMPREHENSIVE METABOLIC PANEL Sodium 139 meq/L 134-153 [facility] ([facility]) Is patient fasting? N Potassium 4.5 meq/L 3.6-5.0 [facility] ([facility]) Is patient fasting? N Chloride 105 meq/L 98-107 [facility] ([facility]) Is patient fasting? N Co2 25 meq/L 22-30 [facility] ([facility]) Is patient fasting? N Glucose 87 mg/dL 70-99 [facility] ([facility]) Is patient fasting? N BUN 10 mg/dL 7-21 [facility] ([facility]) Is patient fasting? N Creatinine 0.6 mg/dL 0.7-1.5 Below low normal [facility] ( [facility]) Is patient fasting? N BUN/Creat 17 8-27 [facility] ([facility]) Is patient fasting? N Total Protein 6.6 g/dL 6.3-8.2 [facility] ([facility]) Is patient fasting? N Albumin 4.3 g/dL 3.9-5.0 [facility] ([facility]) Is patient fasting? N Globulin 2.3 GM/DL 2.4-3.2 Below low normal [facility] ( [facility]) Is patient fasting? N A/G Ratio 1.9 0.8-2.0 [facility] ([facility]) Is patient fasting? N Calcium 8.9 mg/dL 8.4-10.2 [facility] Is patient fasting? N Total Bili Laboratory test result 0.2-1.3 [facility] ([facility]) Is patient fasting? N Alkaline Phos 65 U/L 38-126 [facility] Is patient fasting? N Sgot/Ast 17 U/L 5-40 [facility]) Is patient fasting? N SGPT/Alt 12 U/L 7-56 [facility] ([facility]) Is patient fasting? N Anion Gap 9.0 mmol/L 8.0-16.0 [facility] ([facility]) Is patient fasting? N Age 25 yrs [facility] ([facility]) Is patient fasting? N Non-Aa GFR Laboratory test result [facility] ([facility]) Is patient fasting? N Afr Amer GFR Laboratory test result [facility] ([facility]) Male GFR Interprentation 20-49 yrs >60 [...] >32 mL/min Normal ID Date Data Source [id number] 11/01/2020 11:40:00 AM EST [facility] ([facility]) Name Value Range Interpretation Code Description Data Geeta rce(s) Supporting Document(s) CBC No Diff Laboratory test result [facility] ([facility]) COMPLETE BLOOD COUNT WBC 8.4 10^3/uL 4.2-11.0 [facility] ([facility]) Is patient fasting? N RBC 4.87 10^6/uL 4.20-5.40 [facility] ([facility]) Is patient fasting? N Hemoglobin 15.5 g/dL 12.0-16.0 [facility] ([facility]) Is patient fasting? N Hematocrit 45.0 % 37.0-47.0 [facility] ([facility]) Is patient fasting? N MCH 31.8 pg 27.0-34.0 MEDENT ([facility]) Is patient fasting? N MCV 92.4 fL 81.0-101 MED[facility] ([facility]) Is patient fasting? N MCHC 34.4 g/dL 31.0-36.0 [facility] ([facility]) Is patient fasting? N RDW 12.9 % 11.5-14.5 [facility] ([facility]) Is patient fasting? N Platelets 260 10^3/uL 150-450 MED[facility] ([facility]) Is patient fasting? N MPV 11.2 fL 7.4-10.4 Above high normal MEDENT ([facility]) Is patient fasting? N ID Date Data Source [id number] 11/01/2020 03:46:00 PM [facility] Name Value Range Interpretation Code Description Data Geeta rce(s) Supporting Document(s) Thyrotropin [Units/volume] in Serum or Plasma by Detec tion limit <= 0.05 mIU/L 1.86 uIU/mL 0.47 - 5.01 [facility] ID Date Data Source [id number] 11/01/2020 03:36:00 PM [facility] Value Range Interpretation Code Description Data Geeta rce(s) Supporting Document(s) COMPREHENSIVE METABOLIC PANEL [facility] COMPREHENSIVE METABOLIC PANEL Sodium [Moles/volume] in Serum or Plasma 139 mEq/L 134 - 153 [facility] Potassium [Moles/volume] in Serum or Plasma 4.5 mEq/L 3.6 - 5.0 [facility] Chloride [Moles/volume] in Serum or Plasma 105 mEq/L 98 - 107 [facility] Carbon dioxide, total [Moles/volume] in Serum or Plasma 25 MEQ/L 22 - 30 [facility] Glucose [Mass/volume] in Serum or Plasma 87 MG/DL 70 - 99 [facility] BUN 10 MG/DL 7 - 21 [facility] Creatinine [Mass/volume] in Serum or Plasma 0.6 MG/DL 0.7 - 1.[address] [facility] BUN/CREAT 17 8 - 27 [facility] Protein [Mass/volume] in Serum or Plasma 6.6 G/DL 6.3 - 8.2 [facility] Albumin [Mass/volume] in Serum or Plasma 4.3 G/DL 3.9 - 5.0 [facility] Globulin [Mass/volume] in Serum by calculation 2.3 GM/DL 2.4 - 3.[address] [facility] A/G RATIO 1.9 0.8 - 2.0 [facility] Calcium [Mass/volume] in Serum or Plasma 8.9 MG/DL 8.4 - 10.2 [facility] Bilirubin.total [Mass/volume] in Serum or Plasma <0.7 MG/DL 0.2 - 1.3 [facility] Alkaline phosphatase [Enzymatic activity/volume] in Serum or Plasma 65 U/L 38 - 126 [facility] Aspartate aminotransferase [Enzymatic activity/volume] in Serum or Plasma 17 U/L 5 - 40 [facility] Alanine aminotransferase [Enzymatic activity/volume] in Seru m or Plasma 12 U/L 7 - 56 [facility] Anion gap 3 in Serum or Plasma 9.0 mmol/L 8.0 - 16.0 [facility] AGE 25 yrs [facility] al NON-AA GFR >60 mL/min [facility] ital AFR AMER GFR >60 mL/min [facility] Ho spital Male GFR In terprentation 20-49 [...] >32 mL/min Normal ID Date Data Source [id number] 11/01/2020 03:28:[address] [facility] Name Value Range Interpretation Code Description Data Geeta rce(s) Supporting Document(s) CBC NO DIFF [facility] ital COMPLETE BLOOD COUNT Leukocytes [#/volume] in Blood by Automated count 8.4 10^3/uL 4.2 - [address] [facility] Erythrocytes [#/volume] in Blood by Automated count 4.87 10^6/uL 4. 20 - 5.40 [facility] Hemoglobin [Mass/volume] in Blood 15.5 g/dL 12.0 - 16.0 [facility] Hematocrit [Volume Fraction] of Blood by Automated count 45.0 % 3 7.0 - 47.0 [facility] Erythrocyte mean corpuscular volume [Entitic volume] by Auto mated count 92.4 fL 81.0 - 101 [facility] Erythrocyte mean corpuscular hemoglobin [Entitic mass] by Automated count 31.8 pg 27.0 - 34.0 [facility] Erythrocyte mean corpuscular hemoglobin concentration [Mass/volume] by Automated count 34.4 g/dL 31.0 - 36.0 [facility] Erythrocyte distribution width [Ratio] by Automated count 12.9 % 11.5 - 14.5 [facility] Platelets [#/volume] in Blood by Automated count 260 10^3/uL 150 - [address] [facility] Platelet mean volume [Entitic volume] in Blood by Automated count 11.2 fL 7.4 - 10.[address] [facility] ID Date Data Source [id number] 10/04/2020 12:00:00 AM EST [facility] Name Value Range Interpretation Code Description Data Geeta rce(s) Supporting Document(s) SARS-CoV2 Rapid Antigen Negative [facility] This lab was reported by [facility] re. ID Date Data Source [id number] 09/03/2020 12:00:00 AM EST [facility] Name Value Range Interpretation Code Description Data Geeta rce(s) Supporting Document(s) SARS coronavirus 2 Ag Negative [facility] This lab was ordered by [facility] and reported by [facility]. Procedure Social History Code Duration Value Status Description Data Source(s ) Smoking 03/24/2021 12:00:00 AM EDT Heavy tobacco smoker comple jes Heavy tobacco smoker [facility] ([facility]) 01/15/2021 12:00:00 AM EDT Moderate cigarette sm oker (10-19 cigs/day) completed Moderate cigarette smoker (10-19 cigs/day) [facility] Vital Signs ID Date Data Source UNK Name Value Range Interpretation Code Description Data Source(s) Systolic blood pressure 108 mm[Hg] 108 mm[Hg] M EDENT ([facility]) Diastolic blood pressure 70 mm[Hg] 70 mm[Hg] [facility] ([facility]) Body weight 69.571 kg 69.571 kg [facility] ([facility]) Respiratory rate 16 /min 16 /min [facility] ( [facility]) Oxygen saturation in Arterial blood by Pulse oximetry 98 % 98 % [facility] Body weight 153.38 [lb_av] 153.38 [lb_av] MEDEN T ([facility]) Body surface area Derived from formula 1.81 m2 1.81 m2 [facility] ([facility]) Body height 67 [in_i] 67 [in_i] [facility] ([facility]) 5'7" Body mass index (BMI) [Ratio] 24.0 kg/m2 24.0 k g/m2 [facility] ([facility]) Heart rate 112 /min 112 /min [facility] ([facility]) Body temperature 99.1 [degF] 99.1 [degF] [facility] ([facility]) Body mass index (BMI) [Ratio] 24.9 kg/m2 24.9 k g/m2 [facility] ([facility], ) Respiratory rate 12 /min 12 /min [facility] ( [facility], ) Body height 66 [in_i] 66 [in_i] [facility] ([facility], ) 5'6" Body weight 154.00 [lb_av] 154.00 [lb_av] MEDEN T ([facility], ) [place] body weight 130 [lb_av] 130 [lb_av] MEDEN T ([facility], ) Diastolic blood pressure 80 mm[Hg] 80 mm[Hg] [facility] ([facility]) Systolic blood pressure 118 mm[Hg] 118 mm[Hg] M EDENT ([facility]) Respiratory rate 16 /min 16 /min [facility] Oxygen saturation in Arterial blood by Pulse oximetry 97 % 97 % [facility] ([facility]) Body weight 158.50 [lb_av] 158.50 [lb_av] MEDEN T ([facility]) Body weight 71.896 kg 71.896 kg MEDENT ([facility]) Body height 67 [in_i] 67 [in_i] [facility] ([facility]) 5'7" Body mass index (BMI) [Ratio] 24.8 kg/m2 24.8 k g/m2 [facility] ([facility]) Heart rate 106 /min 106 /min [facility] ([facility]) Body temperature 98.2 [degF] 98.2 [degF] [facility] ([facility]) Body surface area Derived from formula 1.83 m2 1.83 m2 [facility] ([facility]) Body height 167.64 cm 167.64 cm [facility] ([facility] Body weight 72.212 kg 72.212 kg [facility] ([facility]) Systolic blood pressure 122 mm[Hg] 122 mm[Hg] N [facility]Gen ([facility]) Diastolic blood pressure 77 mm[Hg] 77 mm[Hg] [facility] ([facility]) Body mass index (BMI) [Ratio] 25.70 kg/m2 Overweight 25.70 kg/m2 [facility] ([facility]) Systolic blood pressure--sitting 121 mm[Hg] 121 mm[Hg] [facility] Body mass index (BMI) [Ratio] 25.1 kg/m2 25.1 k g/m2 [facility] ([facility]) Body surface area Derived from formula 1.84 m2 1.84 m2 [facility] ([facility]) Diastolic blood pressure--sitting 75 mm[Hg] 75 mm[Hg] [facility] ([facility]) Heart rate 95 /min 95 /min [facility] ([facility]) Body temperature 98.4 [degF] 98.4 [degF] [facility] ([facility]) Oral Respiratory rate 20 /min 20 /min [facility] ( [facility]) Oxygen saturation in Arterial blood by Pulse oximetry 96 % 96 % [facility] ([facility]) Body weight 160.00 [lb_av] 160.00 [lb_av] MEDEN T ([facility]) Body weight 72.576 kg 72.576 kg MED[facility] ([facility]) Body height 67 [in_i] 67 [in_i] [facility] ([facility]) 5'7" Body height 167.64 cm 167.64 cm [facility] ([facility]) Body weight 74.752 kg 74.752 kg [facility] ([facility]) Systolic blood pressure 100 mm[Hg] 100 mm[Hg] N [facility] ([facility]) Diastolic blood pressure 70 mm[Hg] 70 mm[Hg] [facility] ([facility]) Body mass index (BMI) [Ratio] 26.60 kg/m2 Overweight 26.60 kg/m2 [facility] ([facility]) Body height 167.64 cm 167.64 cm [facility] ([facility]) Body weight 75.841 kg 75.841 kg [facility] ([facility]) Systolic blood pressure 100 mm[Hg] 100 mm[Hg] N [facility] ([facility]) Diastolic blood pressure 60 mm[Hg] 60 mm[Hg] [facility] ([facility]) Body mass index (BMI) [Ratio] 26.99 kg/m2 Overweight 26.99 kg/m2 [facility] ([facility]) Body height 167.64 cm 167.64 cm [facility] ([facility] Body weight 81.556 kg 81.556 kg [facility] ([facility]) Systolic blood pressure 130 mm[Hg] 130 mm[Hg] N [facility] ([facility]) Diastolic blood pressure 80 mm[Hg] 80 mm[Hg] [facility] ([facility]) Body mass index (BMI) [Ratio] 29.02 kg/m2 Overweight 29.02 kg/m2 [facility] ([facility]) Body height 167.64 cm 167.64 cm [facility] ([facility]) Body weight 62.142 kg 62.142 kg [facility] ([facility]) Systolic blood pressure 122 mm[Hg] 122 mm[Hg] N [facility] ([facility]) Diastolic blood pressure 72 mm[Hg] 72 mm[Hg] [facility] ([facility]) Body mass index (BMI) [Ratio] 22.11 kg/m2 22.11 kg/m2 [facility] ([facility]) Respiratory rate 12 /min 12 /min [facility] ( [facility] ) Body height 66 [in_i] 66 [in_i] [facility] ([facility], ) 5'6" Body weight 154.00 [lb_av] 154.00 [lb_av] MEDEN T ([facility], ) Body mass index (BMI) [Ratio] 24.9 kg/m2 24.9 k g/m2 [facility] ([facility] ) [place] body weight 130 [lb_av] 130 [[facility]_av] [facility] Diastolic blood pressure 84 mm[Hg] 84 mm[Hg] [facility] ([facility]) Body temperature 97.3 [degF] 97.3 [degF] [facility] ([facility]) Systolic blood pressure 122 mm[Hg] 122 mm[Hg] M EDENT ([facility]) Body weight 175.25 [lb_av] 175.25 [lb_av] MEDEN T ([facility]) Body height 64.5 [in_i] 64.5 [in_i] [facility] ([facility]) 5'4.50" Heart rate 94 /min 94 /min [facility] ([facility]) Respiratory rate 16 /min 16 /min [facility] ( [facility]) Oxygen saturation in Arterial blood by Pulse oximetry 97 % 97 % [facility] ([facility]) Body weight 79.493 kg 79.493 kg MED[facility] ([facility]) Body mass index (BMI) [Ratio] 29.6 kg/m2 29.6 k g/m2 [facility] ([facility]) Body surface area Derived from formula 1.86 m2 1.86 m2 [facility] ([facility]) Body height 64.5 [in_i] 64.5 [in_i] [facility] 5'4.50" Body mass index (BMI) [Ratio] 27.7 kg/m2 27.7 k g/m2 [facility] ([facility]) Body surface area Derived from formula 1.81 m2 1.81 m2 [facility] Systolic blood pressure 102 mm[Hg] 102 mm[Hg] M EDENT ([facility]) Diastolic blood pressure 70 mm[Hg] 70 mm[Hg] [facility] ([facility]) Heart rate 61 /min 61 /min [facility] ([facility]) Body temperature 98.0 [degF] 98.0 [degF] [facility] ([facility]) Respiratory rate 16 /min 16 /min [facility] ( [facility]) Oxygen saturation in Arterial blood by Pulse oximetry 95 % 95 % [facility] ([facility]) Body weight 164.00 [lb_av] 164.00 [lb_av] MEDEN T ([facility]) Body weight 74.390 kg 74.390 kg [facility] Body mass index (BMI) [Ratio] 28.6 kg/m2 28.6 k g/m2 [facility] Body surface area Derived from formula 1.83 m2 1.83 m2 [facility] Systolic blood pressure 120 mm[Hg] 120 mm[Hg] M EDENT ([facility]) Diastolic blood pressure 70 mm[Hg] 70 mm[Hg] [facility] ([facility]) Heart rate 82 /min 82 /min [facility] ([facility]) Body temperature 97.5 [degF] 97.5 [degF] [facility] ([facility]) Respiratory rate 16 /min 16 /min [facility] ( [facility]) Oxygen saturation in Arterial blood by Pulse oximetry 95 % 95 % [facility] ([facility]) Body weight 169.25 [lb_av] 169.25 [lb_av] MEDEN T ([facility]) Body weight 76.772 kg 76.772 kg [facility] ([facility]) Body height 64.5 [in_i] 64.5 [in_i] [facility] ([facility]) 5'4.50" Systolic blood pressure 110 mm[Hg] 110 mm[Hg] M EDENT ([facility], [facility]) Diastolic blood pressure 79 mm[Hg] 79 mm[Hg] [facility] ([facility], [facility]) Heart rate 98 /min 98 /min [facility] ([facility], [facility]) Respiratory rate 16 /min 16 /min MED[facility] ( [facility], [facility]) Oxygen saturation in Arterial blood by Pulse oximetry 99 % 99 % [facility] ([facility], [facility]) Body temperature 97.5 [degF] 97.5 [degF] [facility] ([facility], [facility]) Body weight 173.00 [lb_av] 173.00 [lb_av] MEDEN T ([facility], [facility]) Systolic blood pressure 128 mm[Hg] 128 mm[Hg] M EDENT ([facility], [facility]) Heart rate 62 /min 62 /min [facility] ([facility], [facility]) Respiratory rate 20 /min 20 /min [facility] ( [facility], [facility]) Oxygen saturation in Arterial blood by Pulse oximetry 98 % 98 % [facility] ([facility], [facility]) Body temperature 98.0 [degF] 98.0 [degF] [facility] ([facility], [facility]) Body weight 173.00 [lb_av] 173.00 [lb_av] MEDEN T ([facility], [facility]) Body height 66 [in_i] 66 [in_i] [facility] ([facility], [facility]) 5'6" Body mass index (BMI) [Ratio] 27.9 kg/m2 27.9 k g/m2 [facility] ([facility]) Diastolic blood pressure 79 mm[Hg] 79 mm[Hg] [facility] ([facility]) Body height 64.5 [in_i] 64.5 [in_i] [facility] ([facility]) 5'4.50" Body mass index (BMI) [Ratio] 29.9 kg/m2 29.9 k g/m2 [facility]) Systolic blood pressure 132 mm[Hg] 132 mm[Hg] M EDENT ([facility]) Diastolic blood pressure 64 mm[Hg] 64 mm[Hg] [facility]) Heart rate 83 /min 83 /min [facility] ([facility]) Body temperature 99.7 [degF] 99.7 [degF] [facility] ([facility]) Respiratory rate 18 /min 18 /min [facility] ( [facility]) Oxygen saturation in Arterial blood by Pulse oximetry 97 % 97 % [facility] ([facility]) Body surface area Derived from formula 1.87 m2 1.87 m2 [facility] ([facility]) Body weight 177.00 [lb_av] 177.00 [lb_av] MEDEN T ([facility]) Body weight 80.287 kg 80.287 kg [facility]) ID Date Data Source [id number] 04/05/2021 11:43:03 PM EDT [facility] Name Value Range Interpretation Code Description Data Source(s) TRANSFER FROM [facility] Patient Treatment Plan of Care Planned Activity Planned Date Details Description Data Source (s) Etonogestrel 68 MG Drug Implant [Nexplanon] 01/31/2021 12:00:00 AM EDT [facility] ([facility]) Acetaminophen 300 MG / Codeine Phosphate 30 MG Oral Ta blet 01/15/2021 12:00:00 AM EDT [facility] Ondansetron 4 MG Oral Tablet 01/15/2021 12:00:00 AM EDT [facility] ([facility]) Ibuprofen 800 MG Oral Tablet 01/15/2021 12:00:00 AM EDT [facility] ([facility]) Misoprostol 0.2 MG Oral Tablet 01/15/2021 12:00:00 AM EDT [facility] ([facility]) Mifepristone 200 MG Oral Tablet [Mifeprex] 01/15/2021 12:00:00 AM E DT [facility] ([facility]) Levetiracetam 500 MG Oral Tablet [Keppra] [facility] ([facility])
[2021-06-25] MEDS ORDERED: KETOROLAC 60MG 2ML VIAL IM ONE (14:10)
[2021-06-25] MEDS ORDERED: AUGMENTIN 875 MG TAB PO ONE (14:10)
[2021-06-25] MEDS ORDERED: HYDR-3713 PO (14:12)
[2021-06-25] MEDS ORDERED: MAGICMW SSP (14:12)
[2021-06-25] MEDS ORDERED: AUGM875T28 PO (14:12)
[2021-06-25 14:45] VITALS: BP 122/74
[2021-06-25] MEDS ORDERED: IBUP80TA PO (14:51)
== END 2021-06-25 14:51 | disposition home or self-care (01) ==
LOC: M ED 10:47
DX: K08.89 Other specified disorders of teeth and supporting structures (principal); R68.84 Jaw pain; R51.9 Headache, unspecified; R56.9 Unspecified convulsions; J45.909 Unspecified asthma, uncomplicated; F17.200 Nicotine dependence, unspecified, uncomplicated
CPT/HCPCS: 96372; 99283; J1885

== ENCOUNTER → 2021-07-10 | Outpatient (REF) | payer OTHER ==
[~2021-07-10] MED LIST changes: +HYDR-3713 PO; +LEVE500T5; +MAGICMW SSP; +VENL75CA47
== END ==
LOC: M LAB REF 12:20
PROVIDERS: ATTEND Physician Assistant Medical
DX: R50.9 Fever, unspecified (principal)

== ENCOUNTER → 2021-11-21 | Outpatient (REF) | payer OTHER | LOC: M LAB REF 12:25 | PROVIDERS: ATTEND Physician Assistant Medical | DX: R50.9 Fever, unspecified (principal); R05.9 Cough, unspecified; R51.9 Headache, unspecified; R53.83 Other fatigue ==

== ENCOUNTER 2022-12-04 11:41 | Inpatient (IN) | payer OTHER ==
[2022-12-04] VITALS (9 sets, daily range): BP systolic 120–142; BP diastolic 84–97; PULSE 92; O2SAT 87–93
[~2022-12-04] VITALS: Ht 167.6 cm; Wt 53.5 kg
[2022-12-04] MEDS ORDERED: NS 1,000 ML IV ONE (12:20)
[2022-12-04] MEDS ORDERED: ACETAMINOPHEN TAB 650MG DOSE (2X325MG) PO ONE (12:20)
[2022-12-04 12:26] LABS: BASO # 0.1 10^3/uL (0.0-0.2); BASO % 0.3 % (0.0-1.0); EOS # 0.2 10^3/uL (0.0-0.5); HEMATOCRIT 46.6 % (36.0-47.0); HEMOGLOBIN 15.9 g/dl (12.0-15.5); LYMPH # 0.8 10^3/uL (1.5-5.0); LYMPH % 4.2 % (24.0-44.0); MEAN CORPUSCULAR HEMOGLOBIN 31.7 pg (27.0-33.0); MEAN CORPUSCULAR HGB CONC 34.1 g/dl (32.0-36.5); MONO # 0.8 10^3/uL (0.0-0.8); MONO % 4.3 % (2.0-8.0); NEUTROPHILS # 17.3 10^3/uL (1.5-8.5); NEUTROPHILS % 89.5 % (36.0-66.0); PLATELET COUNT, AUTOMATED 196 10^3/uL (150-450); RED BLOOD COUNT 5.01 10^6/uL (4.00-5.40); WHITE BLOOD COUNT 19.3 10^3/uL (4.0-10.0)
[2022-12-04] MEDS ORDERED: PIPERACILLIN/TAZOBACTAM SOD 4.5 GM in D5W MINI-BAG PLUS 50 ML IV ONE (12:30)
[2022-12-04 12:53] LABS: ETHYL ALCOHOL (ETHANOL) < 0.003 % (0.000-0.010)
[2022-12-04 12:55] LABS: ACETAMINOPHEN LEVEL < 2.0 UG/ML (10.0-20.0); ALBUMIN 3.7 G/DL (3.2-5.2); ALKALINE PHOSPHATASE 62 U/L (46-116); ALT/SGPT 34 U/L (7.0-40); AST/SGOT 64 U/L (<34); BILIRUBIN,DIRECT 0.4 MG/DL (<0.4); BILIRUBIN,TOTAL 0.8 MG/DL (0.3-1.2); BLOOD UREA NITROGEN 12 MG/DL (9-23); CALCIUM LEVEL 8.4 MG/DL (8.5-10.1); CARBON DIOXIDE LEVEL 26 MMOL/L (20-31); CHLORIDE LEVEL 101 MMOL/L (98-107); CREATININE FOR GFR 0.59 MG/DL (0.55-1.30); GLOMERULAR FILTRATION RATE > 60.0 (>60); GLUCOSE, FASTING 134 MG/DL (60-100); POTASSIUM SERUM 3.8 MMOL/L (3.5-5.1); SALICYLATE LEVEL < 3.0 MG/DL (<30); SODIUM LEVEL 133 MMOL/L (136-145); TOTAL PROTEIN 6.7 G/DL (5.7-8.2)
[2022-12-04 12:58] LABS: THYROID STIMULATING HORMONE 0.336 uIU/ML (0.55-4.78)
[2022-12-04 13:03] LABS: HCG, SERUM QUALITATIVE NEGATIVE (NEGATIVE)
[2022-12-04 14:46] LABS: METHADONE URINE NEGATIVE (NEGATIVE); OPIATES URINE NEGATIVE (NEGATIVE)
[2022-12-04 14:47] LABS: AMPHETAMINES LEVEL URINE NEGATIVE (NEGATIVE); BARBITURATES URINE NEGATIVE (NEGATIVE); COCAINE METABOLITE URINE NEGATIVE (NEGATIVE); PHENCYCLIDINE URINE NEGATIVE (NEGATIVE)
[2022-12-04 14:48] LABS: BENZODIAZEPINES URINE POSITIVE (NEGATIVE); CANNABINOIDS URINE POSITIVE (NEGATIVE)
[2022-12-04 15:20] LABS: ABG BASE EXCESS 0.4 (-2.0-2.0); ABG O2 SATURATION 89.4 % (95.0-99.0); ABG PARTIAL PRESSURE CO2 40.1 mmHg (35.0-45.0); ABG PARTIAL PRESSURE O2 52.1 mmHg (75.0-100.0); ABG STANDARD HCO3 24.6 MEQ/L (22.0-26.0); ABG TOTAL CO2 26.2 MEQ/L (22.0-29.0); ABG pH (ARTERIAL) 7.412 UNITS (7.350-7.450)
[2022-12-04] MEDS ORDERED: LEVE750T5 PO (15:23)
[2022-12-04] MEDS ORDERED: HOME MED LIST COMPLETE! XX SCH (15:25)
[2022-12-04] MEDS ORDERED: NALOXONE 2MG/2ML SYRINGE STA ×2 (15:41→19:47)
[2022-12-04] MEDS ORDERED: methylPREDNISolone 125MG 2ML VIAL IV ONE (15:45)
[2022-12-04] MEDS ORDERED: ACETAMINOPHEN TAB 650MG DOSE (2X325MG) PO PRN (15:45)
[2022-12-04] MEDS ORDERED: MOM 30ML SUSPENSION UDC PO PRN (15:45)
[2022-12-04] MEDS ORDERED: ISOVUE-370 76% 100ML VIAL As Ordered ONE (15:54)
[2022-12-04] MEDS ORDERED: LORazepam 2 MG TAB PO PRN (16:15)
[2022-12-04] MEDS ORDERED: MAG SULF 1GM/100ML (MAG RUN) 1 GM in IV 1 EA IV SCH ×2 (16:30→16:45)
[2022-12-04 17:15] LABS: PHOSPHORUS LEVEL 1.9 MG/DL (2.5-4.9)
[2022-12-04 17:26] LABS: INR 1.34; PROTHROMBIN TIME 16.8 SECONDS (12.5-14.5)
[2022-12-04 17:52] LABS: PARTIAL THROMBOPLASTIN TIME 35.7 SECONDS (24.8-34.2)
[2022-12-04 18:28] LABS: FREE T4 0.91 NG/DL (0.89-1.76)
[2022-12-04] MEDS: ALBUTEROL SULFATE 2.5MG/0.5ML INH NEB SOLN NEB SCH (19:20)
[2022-12-04 19:27] LABS: MAGNESIUM LEVEL 1.7 MG/DL (1.8-2.4)
[2022-12-04] MEDS ORDERED: FLUID PLACE HOLDER IV SCH (19:45)
[2022-12-04] MEDS ORDERED: VANCOMYCIN HCL IV SCH (19:45)
[2022-12-04] MEDS ORDERED: NALOXONE INJ 0.4MG/1ML VIAL IV STA (20:01)
[2022-12-04 20:09] LABS: ABG BASE EXCESS 0.1 (-2.0-2.0); ABG HCO3 23.8 MEQ/L (22.0-26.0); ABG O2 SATURATION 87.7 % (95.0-99.0); ABG PARTIAL PRESSURE CO2 36.2 mmHg (35.0-45.0); ABG PARTIAL PRESSURE O2 47.9 mmHg (75.0-100.0); ABG STANDARD HCO3 24.3 MEQ/L (22.0-26.0); ABG TOTAL CO2 24.9 MEQ/L (22.0-29.0); ABG pH (ARTERIAL) 7.436 UNITS (7.350-7.450)
[2022-12-04] MEDS ORDERED: ALBUTEROL SULFATE 2.5MG/0.5ML INH NEB SOLN NEB ONE (20:25)
[2022-12-04] MEDS ORDERED: IPRATROPIUM 0.5MG/ALBUTEROL 2.5MG INH SOL UD 3ML (DUONEB) NEB ONE (20:25)
[2022-12-04] MEDS: DOCUSATE SODIUM 100MG CAPSULE PO SCH (21:00)
[2022-12-04] MEDS: ENOXAPARIN 40MG/0.4ML SYRINGE (J1650 PER 10MG) SC SCH (21:00)
[2022-12-04] MEDS: THIAMINE 100 MG TAB PO SCH (21:00)
[2022-12-04] MEDS ORDERED: SODIUM PHOSPHATE INJ 20 MMOL in D5W 250 ML IV ONE (21:10)
[2022-12-04] MEDS: MAG SULF 1GM/100ML (MAG RUN) 1 GM in IV 1 EA IV SCH ×2 (21:34→21:59)
[2022-12-04] MEDS ORDERED: POTASSIUM PHOSPHATE INJ 30 MMOL in D5W 500 ML IV ONE ×2 (21:45→22:00)
[2022-12-04] MEDS: MULTIVITAMINS/MINERALS THERAP 1 TAB PO SCH (21:47)
[2022-12-04] MEDS: FOLIC ACID 1MG TAB PO SCH (21:47)
[2022-12-04] MEDS: levETIRAcetam INJection 750 MG in D5W 100 ML IV SCH (22:27)
[2022-12-04] MEDS ORDERED: VANCOMYCIN HCL 1,000 MG, VIAL MATE ADAPTER 1 EACH in D5W 250 ML IV ONE (23:00)
[2022-12-04] MEDS: PIPERACILLIN/TAZOBACTAM SOD 3.375 GM in D5W MINI-BAG PLUS 50 ML IV SCH (23:03)
[2022-12-05] VITALS (15 sets, daily range): BP systolic 102–134; BP diastolic 66–84
[2022-12-05] MEDS: ALBUTEROL SULFATE 2.5MG/0.5ML INH NEB SOLN NEB SCH ×5 (01:35→23:41)
[2022-12-05] MEDS: PIPERACILLIN/TAZOBACTAM SOD 3.375 GM in D5W MINI-BAG PLUS 50 ML IV SCH ×4 (02:10→20:15)
[2022-12-05] MEDS: methylPREDNISolone 125MG 2ML VIAL IV SCH ×3 (03:47→20:15)
[2022-12-05 05:35] LABS: BASO % 0.2 % (0.0-1.0); HEMATOCRIT 47.5 % (36.0-47.0); HEMOGLOBIN 15.9 g/dl (12.0-15.5); LYMPH # 0.6 10^3/uL (1.5-5.0); LYMPH % 2.9 % (24.0-44.0); MEAN CORPUSCULAR HEMOGLOBIN 30.9 pg (27.0-33.0); MEAN CORPUSCULAR HGB CONC 33.5 g/dl (32.0-36.5); MEAN CORPUSCULAR VOLUME 92.2 fl (80.0-96.0); MONO # 0.3 10^3/uL (0.0-0.8); MONO % 1.5 % (2.0-8.0); NEUTROPHILS # 20.2 10^3/uL (1.5-8.5); NEUTROPHILS % 94.4 % (36.0-66.0); PLATELET COUNT, AUTOMATED 195 10^3/uL (150-450); RED BLOOD COUNT 5.15 10^6/uL (4.00-5.40); WHITE BLOOD COUNT 21.4 10^3/uL (4.0-10.0)
[2022-12-05 05:46] LABS: ALBUMIN 3.2 G/DL (3.2-5.2); BLOOD UREA NITROGEN 6 MG/DL (9-23); CARBON DIOXIDE LEVEL 27 MMOL/L (20-31); CHLORIDE LEVEL 106 MMOL/L (98-107); CREATININE FOR GFR 0.51 MG/DL (0.55-1.30); GLOMERULAR FILTRATION RATE > 60.0 (>60); GLUCOSE, FASTING 174 MG/DL (60-100); MAGNESIUM LEVEL 2.1 MG/DL (1.8-2.4); PHOSPHORUS LEVEL 2.6 MG/DL (2.5-4.9); POTASSIUM SERUM 4.1 MMOL/L (3.5-5.1); SODIUM LEVEL 139 MMOL/L (136-145)
[2022-12-05 06:13] LABS: ABG HCO3 26.5 MEQ/L (22.0-26.0); ABG O2 SATURATION 91.4 % (95.0-99.0); ABG PARTIAL PRESSURE CO2 40.7 mmHg (35.0-45.0); ABG PARTIAL PRESSURE O2 58.7 mmHg (75.0-100.0); ABG STANDARD HCO3 26.1 MEQ/L (22.0-26.0); ABG TOTAL CO2 27.7 MEQ/L (22.0-29.0); ABG pH (ARTERIAL) 7.431 UNITS (7.350-7.450)
[2022-12-05] MEDS: VANCOMYCIN HCL 750 MG, VIAL MATE ADAPTER 1 EACH in D5W 250 ML IV SCH ×3 (06:31→22:56)
[2022-12-05] MEDS: DOCUSATE SODIUM 100MG CAPSULE PO SCH ×2 (09:00→20:16)
[2022-12-05] MEDS ORDERED: NICOTINE 21MG/24HR 1 EA TRANSDERMAL TD SCH (09:00)
[2022-12-05] MEDS: levETIRAcetam INJection 750 MG in D5W 100 ML IV SCH ×2 (09:55→21:39)
[2022-12-05] MEDS: FOLIC ACID 1MG TAB PO SCH (12:00)
[2022-12-05] MEDS: MULTIVITAMINS/MINERALS THERAP 1 TAB PO SCH (12:00)
[2022-12-05] MEDS: THIAMINE 100 MG TAB PO SCH ×2 (12:00→20:16)
[2022-12-05] MEDS: SODIUM CHLORIDE HYPERTONIC 3% 15ML NEB SOL INH SCH ×2 (19:21→23:41)
[2022-12-05] MEDS: LR 1,000 ML IV SCH (20:15)
[2022-12-05] MEDS: ENOXAPARIN 40MG/0.4ML SYRINGE (J1650 PER 10MG) SC SCH (20:16)
[2022-12-05 21:42] LABS: ABG BASE EXCESS 2.4 (-2.0-2.0); ABG HCO3 26.5 MEQ/L (22.0-26.0); ABG O2 SATURATION 99.5 % (95.0-99.0); ABG PARTIAL PRESSURE CO2 39.3 mmHg (35.0-45.0); ABG PARTIAL PRESSURE O2 201.9 mmHg (75.0-100.0); ABG STANDARD HCO3 26.6 MEQ/L (22.0-26.0); ABG TOTAL CO2 27.7 MEQ/L (22.0-29.0); ABG pH (ARTERIAL) 7.446 UNITS (7.350-7.450)
[2022-12-06] VITALS (15 sets, daily range): BP systolic 102–140; BP diastolic 64–92
[2022-12-06] MEDS: PIPERACILLIN/TAZOBACTAM SOD 3.375 GM in D5W MINI-BAG PLUS 50 ML IV SCH ×2 (01:36→08:40)
[2022-12-06] MEDS: methylPREDNISolone 125MG 2ML VIAL IV SCH ×3 (03:59→20:01)
[2022-12-06] MEDS: VANCOMYCIN HCL 750 MG, VIAL MATE ADAPTER 1 EACH in D5W 250 ML IV SCH ×2 (04:00→10:18)
[2022-12-06] MEDS: ALBUTEROL SULFATE 2.5MG/0.5ML INH NEB SOLN NEB SCH ×6 (04:17→23:44)
[2022-12-06] MEDS: SODIUM CHLORIDE HYPERTONIC 3% 15ML NEB SOL INH SCH ×6 (04:17→23:44)
[2022-12-06 06:11] LABS: BASO % 0.1 % (0.0-1.0); HEMATOCRIT 40.6 % (36.0-47.0); LYMPH % 4.6 % (24.0-44.0); MEAN CORPUSCULAR HEMOGLOBIN 31.9 pg (27.0-33.0); MEAN CORPUSCULAR HGB CONC 34.5 g/dl (32.0-36.5); MEAN CORPUSCULAR VOLUME 92.5 fl (80.0-96.0); MONO % 4.6 % (2.0-8.0); NEUTROPHILS # 19.7 10^3/uL (1.5-8.5); NEUTROPHILS % 89.6 % (36.0-66.0); PLATELET COUNT, AUTOMATED 196 10^3/uL (150-450); RED BLOOD COUNT 4.39 10^6/uL (4.00-5.40)
[2022-12-06 06:34] LABS: BLOOD UREA NITROGEN 7 MG/DL (9-23); CALCIUM LEVEL 8.2 MG/DL (8.5-10.1); CARBON DIOXIDE LEVEL 31 MMOL/L (20-31); CHLORIDE LEVEL 104 MMOL/L (98-107); CREATININE FOR GFR 0.47 MG/DL (0.55-1.30); GLOMERULAR FILTRATION RATE > 60.0 (>60); GLUCOSE, FASTING 143 MG/DL (60-100); POTASSIUM SERUM 4.5 MMOL/L (3.5-5.1); SODIUM LEVEL 137 MMOL/L (136-145)
[2022-12-06] MEDS: MULTIVITAMINS/MINERALS THERAP 1 TAB PO SCH (08:39)
[2022-12-06] MEDS: THIAMINE 100 MG TAB PO SCH (08:39)
[2022-12-06] MEDS: FOLIC ACID 1MG TAB PO SCH (08:39)
[2022-12-06] MEDS: DOCUSATE SODIUM 100MG CAPSULE PO SCH ×2 (09:00→20:01)
[2022-12-06] MEDS: LR 1,000 ML IV SCH (09:28)
[2022-12-06] MEDS: levETIRAcetam INJection 750 MG in D5W 100 ML IV SCH ×2 (09:57→20:00)
[2022-12-06 10:09] LABS: HIV 1&2 SCREEN ATELLICA NEGATIVE (NEGATIVE)
[2022-12-06] MEDS: CEFEPIME HCL 2 GM in D5W MINI-BAG PLUS 50 ML IV SCH ×2 (15:17→21:34)
[2022-12-06] MEDS: VANCOMYCIN HCL 1,000 MG, VIAL MATE ADAPTER 1 EACH in D5W 250 ML IV SCH ×2 (16:20→23:46)
[2022-12-06] MEDS: ENOXAPARIN 40MG/0.4ML SYRINGE (J1650 PER 10MG) SC SCH (20:00)
[2022-12-07] VITALS (8 sets, daily range): BP systolic 116–134; BP diastolic 58–93
[2022-12-07] MEDS: ALBUTEROL SULFATE 2.5MG/0.5ML INH NEB SOLN NEB SCH ×6 (03:24→23:15)
[2022-12-07] MEDS: SODIUM CHLORIDE HYPERTONIC 3% 15ML NEB SOL INH SCH ×6 (03:24→23:15)
[2022-12-07] MEDS: methylPREDNISolone 125MG 2ML VIAL IV SCH ×3 (03:57→21:03)
[2022-12-07 05:12] LABS: BASO % 0.2 % (0.0-1.0); HEMATOCRIT 41.9 % (36.0-47.0); HEMOGLOBIN 14.3 g/dl (12.0-15.5); LYMPH # 1.8 10^3/uL (1.5-5.0); LYMPH % 10.2 % (24.0-44.0); MEAN CORPUSCULAR HEMOGLOBIN 31.6 pg (27.0-33.0); MEAN CORPUSCULAR HGB CONC 34.1 g/dl (32.0-36.5); MEAN CORPUSCULAR VOLUME 92.5 fl (80.0-96.0); MONO # 1.2 10^3/uL (0.0-0.8); MONO % 6.5 % (2.0-8.0); NEUTROPHILS # 14.6 10^3/uL (1.5-8.5); PLATELET COUNT, AUTOMATED 225 10^3/uL (150-450); RED BLOOD COUNT 4.53 10^6/uL (4.00-5.40); WHITE BLOOD COUNT 17.8 10^3/uL (4.0-10.0)
[2022-12-07 05:36] LABS: BLOOD UREA NITROGEN 9 MG/DL (9-23); CALCIUM LEVEL 8.4 MG/DL (8.5-10.1); CARBON DIOXIDE LEVEL 28 MMOL/L (20-31); CHLORIDE LEVEL 105 MMOL/L (98-107); CREATININE FOR GFR 0.46 MG/DL (0.55-1.30); GLOMERULAR FILTRATION RATE > 60.0 (>60); GLUCOSE, FASTING 104 MG/DL (60-100); SODIUM LEVEL 138 MMOL/L (136-145)
[2022-12-07] MEDS: CEFEPIME HCL 2 GM in D5W MINI-BAG PLUS 50 ML IV SCH ×3 (06:12→21:53)
[2022-12-07] MEDS: DOCUSATE SODIUM 100MG CAPSULE PO SCH ×2 (08:27→21:03)
[2022-12-07] MEDS: levETIRAcetam INJection 750 MG in D5W 100 ML IV SCH ×2 (08:27→21:02)
[2022-12-07] MEDS: MULTIVITAMINS/MINERALS THERAP 1 TAB PO SCH (08:27)
[2022-12-07] MEDS: VANCOMYCIN HCL 750 MG, VIAL MATE ADAPTER 1 EACH in D5W 250 ML IV SCH ×2 (09:01→17:27)
[2022-12-07] MEDS: VANCOMYCIN HCL 500 MG in D5W MINI-BAG PLUS 100 ML IV SCH ×2 (10:09→18:44)
[2022-12-07] MEDS ORDERED: NICOTINE 21MG/24HR 1 EA TRANSDERMAL TD PRN (13:55)
[2022-12-07] MEDS: ENOXAPARIN 40MG/0.4ML SYRINGE (J1650 PER 10MG) SC SCH (21:03)
[2022-12-08] MEDS: VANCOMYCIN HCL 750 MG, VIAL MATE ADAPTER 1 EACH in D5W 250 ML IV SCH ×3 (00:31→16:41)
[2022-12-08] MEDS: VANCOMYCIN HCL 500 MG in D5W MINI-BAG PLUS 100 ML IV SCH ×3 (01:58→18:01)
[2022-12-08] MEDS: ALBUTEROL SULFATE 2.5MG/0.5ML INH NEB SOLN NEB SCH ×5 (03:08→20:04)
[2022-12-08] MEDS: SODIUM CHLORIDE HYPERTONIC 3% 15ML NEB SOL INH SCH ×5 (03:09→20:00)
[2022-12-08 03:18] VITALS: O2SAT 99
[2022-12-08] MEDS: methylPREDNISolone 125MG 2ML VIAL IV SCH ×2 (03:21→12:32)
[2022-12-08 04:00] VITALS: BP 119/74
[2022-12-08] MEDS: CEFEPIME HCL 2 GM in D5W MINI-BAG PLUS 50 ML IV SCH ×2 (05:19→14:29)
[2022-12-08 05:36] LABS: HEMATOCRIT 42.1 % (36.0-47.0); HEMOGLOBIN 13.7 g/dl (12.0-15.5); MEAN CORPUSCULAR HEMOGLOBIN 30.6 pg (27.0-33.0); MEAN CORPUSCULAR HGB CONC 32.5 g/dl (32.0-36.5); MEAN CORPUSCULAR VOLUME 94.2 fl (80.0-96.0); PLATELET COUNT, AUTOMATED 213 10^3/uL (150-450); RED BLOOD COUNT 4.47 10^6/uL (4.00-5.40); WHITE BLOOD COUNT 11.5 10^3/uL (4.0-10.0)
[2022-12-08 05:56] LABS: ATYPICAL LYMPH 2 % (0-5); BLOOD UREA NITROGEN 8 MG/DL (9-23); CALCIUM LEVEL 7.8 MG/DL (8.5-10.1); CARBON DIOXIDE LEVEL 25 MMOL/L (20-31); CHLORIDE LEVEL 107 MMOL/L (98-107); CREATININE FOR GFR 0.46 MG/DL (0.55-1.30); GLOMERULAR FILTRATION RATE > 60.0 (>60); GLUCOSE, FASTING 112 MG/DL (60-100); LYMPHOCYTES 16 % (16-44); MONOCYTES 4 % (0-5); NEUTROPHILS 78 % (28-66); POTASSIUM SERUM 4.1 MMOL/L (3.5-5.1); SODIUM LEVEL 138 MMOL/L (136-145)
[2022-12-08 05:57] LABS: PLATELET ESTIMATE NORMAL (NORMAL)
[2022-12-08 08:00] VITALS: BP 120/79
[2022-12-08] MEDS: MULTIVITAMINS/MINERALS THERAP 1 TAB PO SCH (08:49)
[2022-12-08] MEDS: DOCUSATE SODIUM 100MG CAPSULE PO SCH (08:49)
[2022-12-08] MEDS ORDERED: NICOTINE 21MG/24HR 1 EA TRANSDERMAL TD SCH (09:00)
[2022-12-08] MEDS: levETIRAcetam INJection 750 MG in D5W 100 ML IV SCH (10:48)
[2022-12-08 12:00] VITALS: BP 127/79
[2022-12-08 14:00] VITALS: BP 135/69
[2022-12-08] MEDS ORDERED: methylPREDNISolone 125MG 2ML VIAL IV SCH (20:00)
[2022-12-08] MEDS ORDERED: levETIRAcetam 250MG TABLET (KEPPRA) PO SCH (21:00)
== END 2022-12-08 19:00 | disposition left against medical advice (07) | DRG 812 ==
LOC: M ED 11:41 → EEVIPCON 15:42 → M ED INP 15:42 → ENRESERV 17:03 → M PCU 17:47 → M ICU 21:12 → M 4MAIN 12-08 11:47 → M MS4PR 12-08 15:15
PROVIDERS: ADMIT Student in an Organized Health Care Education/Training Program; ATTEND Student in an Organized Health Care Education/Training Program
DX: T43.641A Poisoning by ecstasy, accidental (unintentional), initial encounter (principal); J96.01 Acute respiratory failure with hypoxia; J69.0 Pneumonitis due to inhalation of food and vomit; G92.9 Unspecified toxic encephalopathy; A41.9 Sepsis, unspecified organism; E46 Unspecified protein-calorie malnutrition; J45.901 Unspecified asthma with (acute) exacerbation; T40.2X1A Poisoning by other opioids, accidental (unintentional), initial encounter; G40.909 Epilepsy, unspecified, not intractable, without status epilepticus; F17.210 Nicotine dependence, cigarettes, uncomplicated; Z20.822 Contact with and (suspected) exposure to COVID-19; Z68.1 Body mass index [BMI] 19.9 or less, adult

== ENCOUNTER → 2023-03-03 | Outpatient (CLI) | payer OTHER, MEDICAID ==
[~2023-03-03] MED LIST changes: +LEVE750T5 PO
[2023-03-03 16:07] LABS: HEMATOCRIT 44.5 % (36.0-47.0); HEMOGLOBIN 15.1 g/dl (12.0-15.5); MEAN CORPUSCULAR HGB CONC 33.9 g/dl (32.0-36.5); MEAN CORPUSCULAR VOLUME 97.2 fl (80.0-96.0); PLATELET COUNT, AUTOMATED 265 10^3/uL (150-450); RED BLOOD COUNT 4.58 10^6/uL (4.00-5.40)
[2023-03-03 16:46] LABS: HIV 1&2 SCREEN NEGATIVE (NEGATIVE)
[2023-03-03 16:53] LABS: HEPATITIS C VIRUS ABY INDEX 0.08 INDEX (<0.8)
== END ==
LOC: M PLALAB 12:04
PROVIDERS: ATTEND Obstetrics & Gynecology
DX: O99.351 Diseases of the nervous system complicating pregnancy, first trimester (principal)

== ENCOUNTER → 2023-04-06 | Outpatient (CLI) | payer OTHER | LOC: M PLALAB 08:19 | PROVIDERS: ATTEND Obstetrics & Gynecology | DX: Z34.80 Encounter for supervision of other normal pregnancy, unspecified trimester (principal) ==

== ENCOUNTER → 2023-04-06 | Outpatient (REF) | payer OTHER ==
[2023-04-06 12:32] LABS: GC DNA AMPLIFICATION NEGATIVE (NEGATIVE)
== END ==
LOC: M SFHCWAGY 09:54
PROVIDERS: ATTEND Obstetrics & Gynecology
DX: O99.351 Diseases of the nervous system complicating pregnancy, first trimester (principal); Z3A.00 Weeks of gestation of pregnancy not specified

== ENCOUNTER → 2023-05-10 | Outpatient (CLI) | payer OTHER | LOC: M WHC 08:20 | PROVIDERS: ATTEND Obstetrics & Gynecology | DX: Z36.3 Encounter for antenatal screening for malformations (principal); Z3A.18 18 weeks gestation of pregnancy ==

== ENCOUNTER 2023-10-06 11:51 | Emergency (ER) | payer OTHER ==
[~2023-10-06] VITALS: Ht 167.6 cm; Wt 84.8 kg
[2023-10-06 13:54] LABS: RSV AMPLIFICATION NEGATIVE (NEGATIVE)
[2023-10-06] MEDS: IPRATROPIUM 0.5MG/ALBUTEROL 2.5MG INH SOL UD 3ML (DUONEB) NEB ONE (15:15)
[2023-10-06] MEDS: predniSONE 20 MG TAB PO ONE (15:15)
[2023-10-06] MEDS ORDERED: AMOX875T PO (15:46)
[2023-10-06] MEDS ORDERED: PRED20TA PO (15:46)
[2023-10-06] MEDS ORDERED: VENTAER INH (15:46)
[2023-10-06] MEDS ORDERED: ALBU2.5V10 NEB (15:46)
[2023-10-06 15:56] VITALS: BP 120/61; TEMP 98.1; O2SAT 98
== END 2023-10-06 15:57 | disposition home or self-care (01) ==
LOC: M ED 11:51
DX: J20.8 Acute bronchitis due to other specified organisms (principal); J45.909 Unspecified asthma, uncomplicated; F17.200 Nicotine dependence, unspecified, uncomplicated; Z79.52 Long term (current) use of systemic steroids; Z79.899 Other long term (current) drug therapy
CPT/HCPCS: 87631; 99283; J7512

== ENCOUNTER → 2023-10-20 | Outpatient (CLI) | payer OTHER ==
[~2023-10-20] MED LIST changes: +ALBU2.5V10 NEB; +AMOX875T PO; +PRED20TA PO
[2023-10-20 13:37] LABS: HEMATOCRIT 42.8 % (36.0-47.0); HEMOGLOBIN 14.4 g/dl (12.0-15.5); MEAN CORPUSCULAR HEMOGLOBIN 30.4 pg (27.0-33.0); MEAN CORPUSCULAR HGB CONC 33.6 g/dl (32.0-36.5); MEAN CORPUSCULAR VOLUME 90.5 fl (80.0-96.0); PLATELET COUNT, AUTOMATED 232 10^3/uL (150-450); RED BLOOD COUNT 4.73 10^6/uL (4.00-5.40); WHITE BLOOD COUNT 9.1 10^3/uL (4.0-10.0)
[2023-10-20 14:36] LABS: HIV 1&2 SCREEN NEGATIVE (NEGATIVE)
[2023-10-20 14:44] LABS: HEPATITIS C VIRUS ABY INDEX < 0.02 INDEX (<0.8)
[2023-10-20 15:21] LABS: GC DNA AMPLIFICATION NEGATIVE (NEGATIVE)
== END ==
LOC: M PLALAB 10:45
PROVIDERS: ATTEND Advanced Practice Midwife
DX: Z34.80 Encounter for supervision of other normal pregnancy, unspecified trimester (principal)

== ENCOUNTER → 2023-11-10 | Outpatient (CLI) | payer OTHER ==
[2023-11-10 13:59] LABS: HEMATOCRIT 40.9 % (36.0-47.0); MEAN CORPUSCULAR HEMOGLOBIN 31.5 pg (27.0-33.0); MEAN CORPUSCULAR HGB CONC 34.2 g/dl (32.0-36.5); MEAN CORPUSCULAR VOLUME 91.9 fl (80.0-96.0); PLATELET COUNT, AUTOMATED 224 10^3/uL (150-450); RED BLOOD COUNT 4.45 10^6/uL (4.00-5.40)
[2023-11-10 14:23] LABS: URIC ACID 3.2 MG/DL (3.1-7.8)
[2023-11-10 14:24] LABS: TOTAL PROTEIN,RANDOM URINE 20.3 MG/DL (0.0-14.0)
[2023-11-10 14:26] LABS: LDH LACTATE DEHYDROGENASE 139 U/L (120-246)
[2023-11-10 14:27] LABS: ALT/SGPT 9 U/L (7.0-40); AST/SGOT 10 U/L (<34); BILIRUBIN,TOTAL 0.4 MG/DL (0.3-1.2); CREATININE FOR GFR 0.47 MG/DL (0.55-1.30); GLOMERULAR FILTRATION RATE > 60.0 (>60)
[2023-11-10 14:28] LABS: CREATININE,RANDOM URINE 191.4 MG/DL
== END ==
LOC: M PLALAB 09:41
PROVIDERS: ATTEND Advanced Practice Midwife
DX: O09.292 Supervision of pregnancy with other poor reproductive or obstetric history, second trimester (principal); Z3A.00 Weeks of gestation of pregnancy not specified

== ENCOUNTER → 2023-12-02 | Outpatient (CLI) | payer OTHER | LOC: M RAD 09:38 | PROVIDERS: ATTEND Advanced Practice Midwife | DX: O09.292 Supervision of pregnancy with other poor reproductive or obstetric history, second trimester (principal); Z3A.18 18 weeks gestation of pregnancy; O44.42 Low lying placenta NOS or without hemorrhage, second trimester ==

== ENCOUNTER → 2024-01-19 | Outpatient (CLI) | payer OTHER ==
[2024-01-19 15:44] LABS: ALBUMIN 2.6 G/DL (3.2-5.2); ALKALINE PHOSPHATASE 58 U/L (46-116); ALT/SGPT 12 U/L (7.0-40); AST/SGOT < 8 U/L (<34); BILIRUBIN,TOTAL 0.3 MG/DL (0.3-1.2); BLOOD UREA NITROGEN 6 MG/DL (9-23); CALCIUM LEVEL 8.4 MG/DL (8.5-10.1); CARBON DIOXIDE LEVEL 25 MMOL/L (20-31); CHLORIDE LEVEL 109 MMOL/L (98-107); CREATININE FOR GFR 0.47 MG/DL (0.55-1.30); GLOMERULAR FILTRATION RATE > 60.0 (>60); GLUCOSE, FASTING 64 MG/DL (60-100); POTASSIUM SERUM 3.8 MMOL/L (3.5-5.1); SODIUM LEVEL 139 MMOL/L (136-145); TOTAL PROTEIN 4.3 G/DL (5.7-8.2)
[2024-01-19 15:47] LABS: THYROID STIMULATING HORMONE 0.798 uIU/ML (0.55-4.78)
== END ==
LOC: M PLALAB 12:57
PROVIDERS: ATTEND Internal Medicine
DX: G40.89 Other seizures (principal); Z79.899 Other long term (current) drug therapy

== ENCOUNTER → 2024-01-19 | Outpatient (CLI) | payer OTHER ==
[2024-01-19 15:23] LABS: HEMATOCRIT 39.1 % (36.0-47.0); HEMOGLOBIN 13.3 g/dl (12.0-15.5); MEAN CORPUSCULAR HEMOGLOBIN 32.9 pg (27.0-33.0); MEAN CORPUSCULAR VOLUME 96.8 fl (80.0-96.0); PLATELET COUNT, AUTOMATED 221 10^3/uL (150-450); RED BLOOD COUNT 4.04 10^6/uL (4.00-5.40); WHITE BLOOD COUNT 10.2 10^3/uL (4.0-10.0)
[2024-01-19 17:08] LABS: GC DNA AMPLIFICATION NEGATIVE (NEGATIVE)
== END ==
LOC: M PLALAB 12:54
PROVIDERS: ATTEND Obstetrics & Gynecology
DX: Z34.92 Encounter for supervision of normal pregnancy, unspecified, second trimester (principal)

== ENCOUNTER → 2024-01-21 | Outpatient (CLI) | payer OTHER ==
[2024-01-21 15:40] LABS: ALBUMIN 2.8 G/DL (3.2-5.2); ALKALINE PHOSPHATASE 60 U/L (46-116); ALT/SGPT 11 U/L (7.0-40); AST/SGOT 9 U/L (<34); BILIRUBIN,TOTAL 0.3 MG/DL (0.3-1.2); BLOOD UREA NITROGEN 7 MG/DL (9-23); CALCIUM LEVEL 8.3 MG/DL (8.5-10.1); CARBON DIOXIDE LEVEL 24 MMOL/L (20-31); CHLORIDE LEVEL 109 MMOL/L (98-107); CREATININE FOR GFR 0.45 MG/DL (0.55-1.30); GLOMERULAR FILTRATION RATE > 60.0 (>60); GLUCOSE, FASTING 74 MG/DL (60-100); POTASSIUM SERUM 4.4 MMOL/L (3.5-5.1); SODIUM LEVEL 138 MMOL/L (136-145); TOTAL PROTEIN 5.8 G/DL (5.7-8.2)
== END ==
LOC: M PLALAB 12:04
PROVIDERS: ATTEND Internal Medicine
DX: E88.09 Other disorders of plasma-protein metabolism, not elsewhere classified (principal); Z11.1 Encounter for screening for respiratory tuberculosis

== ENCOUNTER → 2024-02-04 | Outpatient (CLI) | payer OTHER | LOC: M RAD 10:27 | PROVIDERS: ATTEND Advanced Practice Midwife | DX: O44.43 Low lying placenta NOS or without hemorrhage, third trimester (principal); Z3A.28 28 weeks gestation of pregnancy ==

== ENCOUNTER → 2024-03-30 | Outpatient (REF) | payer OTHER | LOC: M PLALAB 13:17 | PROVIDERS: ATTEND Advanced Practice Midwife | DX: Z36.85 Encounter for antenatal screening for Streptococcus B (principal); Z3A.36 36 weeks gestation of pregnancy ==

== ENCOUNTER 2024-05-03 10:51 | Outpatient (CLI) | payer OTHER ==
[~2024-05-03] VITALS: Ht 167.6 cm; Wt 93.6 kg
[~2024-05-03 10:51] MED LIST changes: +PRENTAB9 PO
[2024-05-03 11:14] VITALS: BP 121/81
[2024-05-03] MEDS ORDERED: LR 1,000 ML IV SCH (12:45)
[2024-05-03] MEDS: PROMETHAZINE 25MG/ML 1ML VIAL IV ONE (13:22)
[2024-05-03] MEDS: MORPHINE 10 MG/ML 1ML VIAL SC ONE (13:25)
[2024-05-03] MEDS: MORPHINE 10 MG/ML 1ML VIAL IV ONE (13:25)
[2024-05-03] MEDS: LACTATED RINGER'S 1000 ML IV ONE (13:25)
[2024-05-03 13:33] VITALS: BP 114/67
[2024-05-03] MEDS: NICOTINE 21MG/24HR 1 EA TRANSDERMAL TD SCH (14:50)
[2024-05-03 19:05] VITALS: BP 110/64
== END 2024-05-03 19:30 | disposition home or self-care (01) ==
LOC: M LDO 10:51
PROVIDERS: ATTEND Advanced Practice Midwife
DX: O47.1 False labor at or after 37 completed weeks of gestation (principal); O99.820 Streptococcus B carrier state complicating pregnancy; O34.219 Maternal care for unspecified type scar from previous cesarean delivery; O99.333 Smoking (tobacco) complicating pregnancy, third trimester; O99.353 Diseases of the nervous system complicating pregnancy, third trimester; G40.909 Epilepsy, unspecified, not intractable, without status epilepticus; F17.210 Nicotine dependence, cigarettes, uncomplicated; Z3A.40 40 weeks gestation of pregnancy
CPT/HCPCS: 59025; 96374; 96375; G0463; J2550

== ENCOUNTER 2024-05-04 05:46 | Inpatient (IN) | payer OTHER ==
[~2024-05-04] VITALS: Ht 167.6 cm; Wt 93.6 kg
[2024-05-04 06:01] VITALS: BP 115/81
[2024-05-04] MEDS: LACTATED RINGER'S 1000 ML IV STA (06:18)
[2024-05-04] MEDS ORDERED: LR 1,000 ML IV SCH (06:20)
[2024-05-04 06:47] LABS: HEMATOCRIT 39.6 % (36.0-47.0); HEMOGLOBIN 13.8 g/dl (12.0-15.5); MEAN CORPUSCULAR HEMOGLOBIN 33.3 pg (27.0-33.0); MEAN CORPUSCULAR HGB CONC 34.8 g/dl (32.0-36.5); MEAN CORPUSCULAR VOLUME 95.7 fl (80.0-96.0); PLATELET COUNT, AUTOMATED 171 10^3/uL (150-450); RED BLOOD COUNT 4.14 10^6/uL (4.00-5.40)
[2024-05-04] MEDS: BICITRA 30ML SOLN UDC PO ONE (07:09)
[2024-05-04] MEDS: ceFAZolin SOD 2 GM in IV 1 EA IV ONE (07:09)
[2024-05-04 07:51] LABS: HEPATITIS C VIRUS ABY INDEX 0.03 INDEX (<0.8)
[2024-05-04] MEDS ORDERED: SIMETHICONE 80MG CHEW TAB PO PRN (07:55)
[2024-05-04] MEDS ORDERED: RHO(D) IMMUNE GLOBULIN/MALTOSE 500MCG(2500IU)/2.2ML VIAL (WINRHO) IM SCH (07:55)
[2024-05-04] MEDS ORDERED: MOM 30ML SUSPENSION UDC PO PRN (07:55)
[2024-05-04] MEDS ORDERED: METHYLERGONOVINE MALEATE 0.2MG/ML 1ML VIAL IM PRN (07:55)
[2024-05-04] MEDS ORDERED: MORPHINE PRES-FREE INJ 10 MG/10 ML VIAL As Ordered ONE (08:00)
[2024-05-04] MEDS ORDERED: ePHEDrine SULFATE 25 MG/5 ML(5MG/ML) SYRINGE As Ordered ONE (08:02)
[2024-05-04] MEDS ORDERED: ONDANSETRON 4MG 2ML VIAL As Ordered ONE (08:03)
[2024-05-04] MEDS ORDERED: ACETAMINOPHEN 1000MG 100ML IV BAG As Ordered ONE (08:03)
[2024-05-04] MEDS ORDERED: OXYTOCIN 30UNITS IN 0.9% NaCl 500ML IV BAG As Ordered ONE (08:03)
[2024-05-04] MEDS ORDERED: KETOROLAC 60MG 2ML VIAL As Ordered ONE (08:03)
[2024-05-04] MEDS: OXYTOCIN DRIP 30 UNITS in IV 1 EA IV SCH (09:06)
[2024-05-04 09:53] VITALS: TEMP 97.3
[2024-05-04] MEDS ORDERED: PHENYLephrine 500MCG 5ML (100MCG/ML) SYRINGE As Ordered ONE (10:32)
[2024-05-04 11:00] VITALS: BP 133/79; O2SAT 97
[2024-05-04] MEDS: DOCUSATE SODIUM 100MG CAPSULE PO SCH (11:28)
[2024-05-04] MEDS: PRENATAL VITAMINS CHEWABLE TABLET PO SCH (11:28)
[2024-05-04 14:00] VITALS: BP 124/78; O2SAT 97
[2024-05-04] MEDS: KETOROLAC 30 MG/ML 1ML VIAL IV SCH (14:01)
[2024-05-04] MEDS: LR 1,000 ML IV SCH (14:02)
[2024-05-04 18:00] VITALS: BP 124/84; O2SAT 97
[2024-05-04] MEDS: NICOTINE 14 MG/24 HR TRANSDERMAL TD SCH (20:35)
[2024-05-04 22:00] VITALS: BP 120/77; O2SAT 97
[2024-05-05 02:00] VITALS: BP 126/82; O2SAT 98
[2024-05-05 06:00] VITALS: BP 129/77; O2SAT 98
[2024-05-05] MEDS: PERCOCET 5MG/325MG TAB PO PRN ×2 (07:17→15:22)
[2024-05-05 07:49] LABS: HEMATOCRIT 33.7 % (36.0-47.0); MEAN CORPUSCULAR HEMOGLOBIN 33.2 pg (27.0-33.0); MEAN CORPUSCULAR VOLUME 94.9 fl (80.0-96.0); PLATELET COUNT, AUTOMATED 174 10^3/uL (150-450); RED BLOOD COUNT 3.55 10^6/uL (4.00-5.40); WHITE BLOOD COUNT 12.9 10^3/uL (4.0-10.0)
[2024-05-05 07:52] LABS: HEMOGLOBIN 11.8 g/dl (12.0-15.5)
[2024-05-05] MEDS: IBUPROFEN 800 MG TAB PO SCH (09:20)
[2024-05-05] MEDS: PERCOCET 5MG/325MG TAB PO ONE (09:55)
[2024-05-05 14:00] VITALS: BP 131/90; O2SAT 100
[2024-05-05 18:00] VITALS: BP 144/88; O2SAT 100
[2024-05-05 21:56] VITALS: BP 132/76; O2SAT 99
[2024-05-06 01:53] VITALS: BP 115/75; O2SAT 98
[2024-05-06 06:04] VITALS: BP 134/85; O2SAT 99
[2024-05-06] MEDS: MEASLES,MUMPS,RUBELLA VACCINE INJ (MMR-II) SC.IMMUN ONE (09:09)
[2024-05-06 12:30] VITALS: BP 140/93; O2SAT 98
[2024-05-06] MEDS ORDERED: OXYC1TAB23 PO (12:58)
[2024-05-06] MEDS ORDERED: IBUP80TA PO (12:58)
[2024-05-06] MEDS ORDERED: COLA100C5 PO (12:58)
== END 2024-05-06 14:05 | disposition home or self-care (01) | DRG 540 ==
LOC: M LDI 05:46 → EEVIPCON 05:46 → M OBS 14:01
PROVIDERS: ADMIT Obstetrics & Gynecology; ATTEND Obstetrics & Gynecology
PROC: 10D00Z1 Extraction of Products of Conception, Low, Open Approach (ICD-10-PCS; principal; 2024-05-04 07:30)
DX: O34.211 Maternal care for low transverse scar from previous cesarean delivery (principal); O48.0 Post-term pregnancy; Z3A.41 41 weeks gestation of pregnancy; Z37.0 Single live birth